=== PATIENT | male | born 1965 | race Caucasian/White ===

== ENCOUNTER 2018-02-26 05:08 | Emergency (ER) | payer BC ==
[~2018-02-26] VITALS: Ht 170.2 cm; Wt 89.4 kg
[~2018-02-26 05:08] MED LIST: DAPS25TA2 PO; FEXO180T; HYDR-229 PO; HYDR-3731 PO; LEVO250T11 PO; LEVO750T9 PO; MULT-608 PO; OXYC-12 PO; PHEN-640 PO; SULF1TAB38 PO; TAMS0.4C98 PO
[2018-02-26] MEDS ORDERED: ONDANSETRON 4 MG (ZOFRAN) ORAL DISSOLVE TAB PO ONE (05:30)
[2018-02-26] MEDS ORDERED: KETOROLAC 30 MG/ML VIAL IM ONE (05:30)
--- NOTE | 2018-02-26 05:30 | ED Back Pain ---
General Chief Complaint: Back Problems Stated Complaint: POSS KIDNEY STONE Source of Information: Patient, Spouse Exam Limitations: No Limitations History of Present Illness Date Seen by Provider: Feb 26, 2018 Time Seen by Provider: 05:19 Initial Comments Patient presents to the ER by private conveyance with a chief complaint he is had kidney stones before and he is having pain tonight woke him up just prior to arrival reminiscent of a kidney stone. He says it's in his right lower flank with some radiation of pain to his right groin. He is able to urinate is not having any blood in his urine. He had some nausea earlier and vomited times one. He is not as nauseated now however. He says in the past he's had to have kidney stones broke up by lithotripsy by Dr. Navarro. He took half of a hydrocodone he had left over and that helped his pain quite a bit. Allergies and Home Medications Allergies Coded Allergies: No Known Drug Allergies (Unverified , 08/12/09) Home Medications Dapsone 25 Mg Tablet, 50 MG PO DAILY, (Reported) take 2 (25mg) tabs Levofloxacin 250 Mg Tablet, 250 MG PO DAILY Prescribed by: JOSEE LEAVITT on 12/29/15 1016 Multivitamins 1 Tab Tablet, 1 TAB PO DAILY, (Reported) Phenazopyridine HCl 200 Mg Tablet, 1 TAB PO TID PRN for PAIN Prescribed by: JOSEE LEAVITT on 12/29/15 1016 Tamsulosin HCl 0.4 Mg Cap, 0.4 MG PO DAILY Prescribed by: JOSEE LEAVITT on 12/29/15 1016 Patient Home Medication List Home Medication List Reviewed: Yes Constitutional: No chills, No diaphoresis, No fever EENTM: No ear discharge, No ear pain Respiratory: No cough, No short of breath Cardiovascular: No chest pain, No edema Gastrointestinal: No abdominal pain, No constipation, No diarrhea; nausea, vomiting Genitourinary: No decreased output, No discharge, No dysuria Musculoskeletal: see HPI, back pain; No joint pain Skin: No pruritus, No rash Psychiatric/Neurological: Denies Headache, Denies Numbness Past Aubgajp-Ygxbpo-Lkshvv Hx Patient Social History Alcohol Use: Denies Use Recreational Drug Use: No Smoking Status: Never a Smoker Recent Foreign Travel: No Contact w/Someone Who Travel: No Past Medical History Reproductive Disorders: No Sexually Transmitted Disease: No Kidney Stones Physical Exam Vital Signs Vital Signs - First Documented 02/26/18 05:21 Temp 97.9 Resp 20 B/P (MAP) 136/100 (112) Pulse Ox 92 O2 Delivery Room Air Capillary Refill : General Appearance: No Apparent Distress, WD/WN HEENT: PERRL/EOMI, Pharynx Normal Neck: Full Range of Motion, Non Tender, Supple Cardiovascular: Regular Rate, Rhythm, No Murmur, Normal Peripheral Pulses Respiratory: Chest Non Tender, Lungs Clear, Normal Breath Sounds, No Accessory Muscle Use, No Respiratory Distress Peripheral Pulses: 2+ Radial Pulses (R), 2+ Radial Pulses (L) Gastrointestinal: Normal Bowel Sounds, Non Tender, Soft Back: Normal Inspection, CVA Tenderness (R) Extremity: Normal Capillary Refill, Non Tender, No Pedal Edema Neurologic/Psychiatric: Alert, Oriented x3 Skin: Normal Color, Warm/Dry Progress/Results/Core Measures Results/Orders My Orders Orders - TIFFANY BE Ct Abd/Pelvis Wo(Kidney Stone) (02/26/18 05:21) Abdomen/Kub 1view (02/26/18 05:21) Ondansetron Oral Dissolve Tab (Zofran (02/26/18 05:30) Ketorolac Injection (Toradol Injection) (02/26/18 05:30) Ceftriaxone Injection (Rocephin Injectio (02/26/18 06:00) Medications Given in ED Current Medications Medications Dose Ordered Sig/Steven Route Start Time Stop Time Status Last Admin Dose Admin Ketorolac Tromethamine 30 mg ONCE ONCE IM 02/26/18 05:30 02/26/18 05:32 DC 02/26/18 05:31 30 MG Ondansetron HCl 4 mg ONCE ONCE PO 02/26/18 05:30 02/26/18 05:32 DC 02/26/18 05:32 4 MG Vital Signs/I&O 02/26/18 05:21 Temp 97.9 Resp 20 B/P (MAP) 136/100 (112) Pulse Ox 92 O2 Delivery Room Air Progress Progress Note #1: Time: 05:30 Progress Note The patient's pain is still moderately there so we'll give him some Zofran and ketorolac IM and obtain CT without contrast of the abdomen pelvis as well as a plain view KUB. Progress Note #2: Time: 05:59 Progress Note Gram of Rocephin and some Keflex outpatient and will send him to see Dr. Navarro. Diagnostic Imaging Diagonstic Imaging: CT Plain Films/CT/US/NM/MRI: abdomen, pelvis (no contrast) Comments 7 mm stone proximal right ureter with hydroureter and hydronephrosis. Reviewed: Reviewed by Me Departure Impression Primary Impression: Ureteral calculus Disposition: HOME, SELF-CARE Condition: Improved Departure-Patient Inst. Decision time for Depature: 06:00 Referrals: CRISTOBAL STEVENS DO (PCP/Family) Primary Care Physician WILLY NAVARRO MD Patient Instructions: Kidney Stones (DC) Add. Discharge Instructions: Drink plenty of fluids. Caffeine is okay. Use ibuprofen 800 mg every 8 hours in addition to one half to 2 tablets every 6 hours as needed to control your pain. This morning call Dr. Navarro and request an appointment. 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 All discharge instructions reviewed with patient and/or family. Voiced understanding. Scripts Cephalexin (Keflex) 500 Mg Capsule 500 MG PO BID for 7 Days, #14 CAP 0 Refills Prov: TIFFANY BE 02/26/18 Oxycodone HCl/Acetaminophen (Oxycodone-Acetaminophen 5-325) 1 Each Tablet 1-2 EACH PO Q6H PRN for PAIN, #20 TAB 0 Refills Prov: TIFFANY BE 02/26/18 Ondansetron (Ondansetron Odt) 4 Mg Tab.rapdis 4 MG PO Q6H PRN for NAUSEA/VOMITING, #8 TAB 0 Refills Prov: TIFFANY BE 02/26/18 Work/School Note: Work Release Form Date Seen in the Emergency Department: Feb 26, 2018 Return to Work: Feb 28, 2018 Restrictions: No Restrictions Copy Copies To 1: WILLY NAVARRO MD, TITUS J Feb 26, 2018 05:30
[2018-02-26] MEDS ORDERED: cefTRIAXone INJECTION 1,000 MG in NS (IVPB) 50 ML IV ONE (06:00)
[2018-02-26] MEDS ORDERED: OXYC-471 PO (06:04)
[2018-02-26] MEDS ORDERED: ONDA4TAB11 PO (06:04)
[2018-02-26] MEDS ORDERED: CEPH-507 PO (06:04)
[2018-02-26] MEDS ORDERED: LIDOCAINE 1% INJ 20 ML 20 ML VIAL ONE (06:07)
[2018-02-26 06:15] VITALS: BP 136/100
[2018-02-26] MEDS ORDERED: cefTRIAXone 1 GM (ROCEPHIN) VIAL IM ONE (06:15)
[2018-02-26] MEDS ORDERED: LIDOCAINE 1% INJ 50 ML (XYLOCAINE) VIAL IJ ONE (06:15)
--- NOTE | 2018-02-26 07:00 | Diagnostic Imaging Report ---
Indication: Abdominal and flank pain. Comparison: 12/29/2015 Findings: Two views of the abdomen demonstrate mild constipation without obstruction or ileus. There is no free air. Stable calcification measuring 3 mm is seen overlying the medial 11th rib on the left. Impression: Mild constipation without obstruction or free air. Dictated by: Dictated on workstation # [id number]
--- NOTE | 2018-02-26 07:01 | Diagnostic Imaging Report ---
PROCEDURE: CT urinary tract, rule out kidney stone. TECHNIQUE: Multiple contiguous axial images were obtained through the abdomen and pelvis without the use of intravenous contrast. INDICATION: Right flank pain. COMPARISON: 12/23/2015 FINDINGS: There is moderate right-sided hydronephrosis secondary to an obstructive stone in the proximal ureter measuring approximately 8 mm. There is inflammatory change in the perinephric fat. Additional nonobstructive stones are seen bilaterally. The left ureter and urinary bladder are grossly normal. There is some mild prostate enlargement. Lung bases are clear. The remainder of the solid organs, vascular structures and bowel are stable. There is stable splenomegaly. Osseous structures are age-appropriate. IMPRESSION: Moderate right-sided hydronephrosis secondary to an obstructive 8 mm stone in the proximal right ureter. Dictated by: Dictated on workstation # [id number]
== END 2018-02-26 06:14 | disposition home or self-care (01) ==
LOC: EDUNIT# 05:08 → ER 05:11
DX: N20.1 Calculus of ureter (principal)
CPT/HCPCS: 74018; 74176; 96372; 99284

== ENCOUNTER 2018-03-04 09:39 | Outpatient (CLI) | payer BC ==
[~2018-03-04] VITALS: Ht 170.2 cm; Wt 89.4 kg
[~2018-03-04 09:39] MED LIST changes: -HYDR-3870 PO; -NITR-68 PO
[2018-03-05] MEDS ORDERED: NITR-68 PO (10:19)
[2018-03-05] MEDS ORDERED: HYDR-3870 PO (10:19)
== END 2018-03-04 16:25 ==
LOC: PREOP 09:39
PROVIDERS: ATTEND Urology
DX: Z01.818 Encounter for other preprocedural examination (principal); N20.1 Calculus of ureter

== ENCOUNTER → 2018-03-04 | Outpatient (CLI) | payer BC ==
[~2018-03-04] MED LIST changes: +CEPH-507 PO; +HYDR-3870 PO; +NITR-68 PO; +ONDA4TAB11 PO; +OXYC-471 PO
--- NOTE | 2018-03-04 14:24 | Diagnostic Imaging Report ---
INDICATION: Nephrolithiasis. EXAMINATION: KUB at 2:18 PM. FINDINGS: There is a 5 mm calcification projected just below the transverse process of L3 on the right. The bowel gas pattern is normal. IMPRESSION: A 5 mm stone projects over the right proximal ureter. Dictated by: Dictated on workstation # [id number]
== END ==
LOC: RAD 13:49
PROVIDERS: ATTEND Urology
DX: N20.2 Calculus of kidney with calculus of ureter (principal)
CPT/HCPCS: 74018

== ENCOUNTER 2018-03-05 06:20 | Day surgery (SDC) | payer BC ==
[~2018-03-05] VITALS: Ht 170.2 cm; Wt 89.4 kg
[~2018-03-05 06:20] MED LIST changes: +LACTATED RINGERS 1,000 ML IV ONE
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
[2018-03-05 06:30] VITALS: BP 133/87
[2018-03-05] MEDS ORDERED: cefTRIAXone INJECTION 1,000 MG in NS (IVPB) 50 ML IV ONE (06:30)
--- NOTE | 2018-03-05 06:55 | Diagnostic Imaging Report ---
INDICATION: Urinary tract calculus Single view of the abdomen is obtained with comparison made to the study of one day earlier. There is a persistent 0.6 cm calcification projecting to the right of midline at the C3-4 level compatible with ureteric calculus. Bowel gas pattern is unremarkable. No other pathologic abdominal calcification is seen. There may be calcified granulomas in the spleen. IMPRESSION: A 0.6 cm calculus to the right of midline at L3-4 which may reside within the ureter. This is not significantly changed compared to previous study. Dictated by: Dictated on workstation # [id number]
--- NOTE | 2018-03-05 07:13 | Progress Note-Pre Operative ---
Pre-Operative Progress Note H&P Reviewed The H&P was reviewed, patient examined and no changes noted. Date Seen by Provider: Mar 05, 2018 Time Seen by Provider: 07:12 Date H&P Reviewed: Mar 05, 2018 Time H&P Reviewed: 07:12 Pre-Operative Diagnosis: RT PROXIMAL URETERAL STONE WILLY NAVARRO MD Mar 05, 2018 7:13 am
--- NOTE | 2018-03-05 07:21 | Progress Note-Post Operative ---
Post-Operative Progess Note Surgeon (s)/Pulmonary Care Nurse (s) Surgeon WILLY NAVARRO MD Pulmonary Care Nurse: N/A Pre-Operative Diagnosis RT PROXIMAL URETERAL STONE Post-Operative Diagnosis SAME Procedure & Operative Findings Date of Procedure 03/05/18 Procedure Performed/Findings RT ESWL Anesthesia Type GENERAL Estimated Blood Loss Estimated blood loss (mL): N/A Specimens/Packing Specimens Removed N/A Packing: N/A WILLY NAVARRO MD Mar 05, 2018 7:21 am
--- NOTE | 2018-03-05 07:22 | Discharge Inst-Urology ---
Discharge Inst-Urology Discharge Medications New, Converted, or Re-newed RX: RX on Chart Patient Instructions/Follow Up Plan Please make appointment to been seen in office Sunday prior to it KU on way home Post ESWL instructions Increase oral fluids for 48 hours and then as needed. Diet and Activity as tolerated. If questions or concerns contact your physician Or seek help at emergency department. WILLY NAVARRO MD Mar 05, 2018 7:22 am
[2018-03-05] MEDS ORDERED: fentaNYL INJECTION 100 MCG/2 ML AMP ONE (08:03)
[2018-03-05] MEDS ORDERED: DEXAMETHASONE 10 MG/ML (DECADRON) 1 ML VIAL ONE (08:03)
[2018-03-05] MEDS ORDERED: ONDANSETRON 4 MG/2 ML (SDV) Z0FRAN ONE (08:03)
[2018-03-05] MEDS ORDERED: LIDOCAINE PF 2% 5 ML (XYLOCAINE) VIAL ONE (08:03)
[2018-03-05] MEDS ORDERED: proPOfol 200 MG/20 ML (DIPRIVAN) VIAL IV ONE (08:03)
[2018-03-05] MEDS ORDERED: MIDAZOLAM 2 MG/2 ML (VERSED) VIAL ONE (08:07)
[2018-03-05] MEDS ORDERED: KETOROLAC 30 MG/ML VIAL ONE (08:22)
[2018-03-05] MEDS ORDERED: FUROSEMIDE 40 MG/4 ML INJ (LASIX) ONE (08:22)
[2018-03-05] MEDS ORDERED: SEVOFLURANE (ULTANE) 15 ML INHAL SOLN ONE (09:09)
[2018-03-05 09:55] VITALS: BP 133/87
[2018-03-05] MEDS ORDERED: NITR-68 PO (10:19)
[2018-03-05] MEDS ORDERED: HYDR-3870 PO (10:19)
[2018-03-05 10:25] VITALS: BP 126/83
--- NOTE | 2018-03-05 10:50 | Anesthesia-General Post-Op ---
General Patient Condition Mental Status/LOC: Same as Preop Cardiovascular: Satisfactory Nausea/Vomiting: Absent Respiratory: Satisfactory Pain: Controlled Complications: Absent Post Op Complications Complications None Follow Up Care/Instructions Patient Instructions None needed. Anesthesia/Patient Condition Patient Condition Patient is doing well, no complaints, stable vital signs, no apparent adverse anesthesia problems. No complications reported per nursing. KOURTNEY EDOUARD CRNA Mar 05, 2018 10:50
[2018-03-05 10:55] VITALS: BP 132/82
[2018-03-05 11:15] VITALS: BP 132/82
--- NOTE | 2018-03-05 13:15 | OPERATIVE REPORT ---
DATE OF SERVICE: 03/05/2018 PREOPERATIVE DIAGNOSIS: Right proximal ureteral stone. POSTOPERATIVE DIAGNOSIS: Right proximal ureteral stone. OPERATION PERFORMED: Right ESWL. SURGEON: Germán Navarro MD. ANESTHESIA: General. COMPLICATIONS: None. DESCRIPTION OF PROCEDURE: Under satisfactory general anesthesia, the patient in supine position on the ESWL table, the right proximal ureteral stone was localized and shocks were delivered at a kV of 6, a total of 3000 shocks to completely fragment the stone. The patient received 40 mg of Lasix and 30 mg of Toradol IV at the end of the procedure. He tolerated the procedure and anesthesia well, was sent to recovery room in stable condition. Job ID: [id number] DocumentID: [id number] Dictated Date: 03/05/2018 08:52:47 Creative Services Coordinator Date: 03/05/2018 13:14:46 Dictated By: GERMÁN NAVARRO MD
--- NOTE | 2018-03-05 13:27 | Diagnostic Imaging Report ---
INDICATION: Post extracorporeal shock wave lithotripsy. TECHNIQUE: Single supine view of the abdomen at 11:20 AM CORRELATION STUDY: 03/05/2018 FINDINGS: Imaging of the abdomen demonstrates the bowel gas pattern to be unremarkable and without evidence for obstruction. No significant differential air-fluid levels. No evidence for free air. There is increased density over the right L3 transverse process fairly similar in configuration to a calcification noted on prior study. This measures approximately 9 mm likely remaining within the ureter. IMPRESSION: 1. Calcification over the right L3 transverse process is again demonstrated. This likely reflects the previously noted right ureteral stone. Dictated by: Dictated on workstation # [id number]
== END 2018-03-05 11:15 | disposition home or self-care (01) ==
LOC: SDC 06:20
PROVIDERS: ATTEND Urology
DX: N20.1 Calculus of ureter (principal)
CPT/HCPCS: 74018; 87081

== ENCOUNTER → 2018-03-11 | Outpatient (CLI) | payer BC ==
[~2018-03-11] MED LIST changes: +HYDR-3870 PO; -LACTATED RINGERS 1,000 ML IV ONE; +NITR-68 PO
--- NOTE | 2018-03-11 13:14 | Diagnostic Imaging Report ---
INDICATION: Nephrolithiasis. FINDINGS: There is a stone seen just below the right transverse process of L3. This is presumably in the mid ureter. There are some calcified granulomas in the spleen. No other abnormal calcifications are appreciated. Bowel gas pattern is nonspecific. IMPRESSION: Stone in the mid right ureter just below the right transverse process of L3. Dictated by: Dictated on workstation # [id number]
== END ==
LOC: LAB 12:35
PROVIDERS: ATTEND Urology
DX: N20.2 Calculus of kidney with calculus of ureter (principal)
CPT/HCPCS: 74018

== ENCOUNTER 2018-03-25 15:47 | Outpatient (CLI) | payer BC ==
[~2018-03-25] VITALS: Ht 170.2 cm; Wt 89.4 kg
[~2018-03-25 15:47] MED LIST changes: -CIPR-225 PO; -HYDR-3875 PO; -MULT1TAB69 PO
[2018-03-25] MEDS ORDERED: MULT1TAB69 PO (15:58)
[2018-03-25] MEDS ORDERED: DAPS25TA2 PO (15:58)
[2018-03-26] MEDS ORDERED: PHEN-640 PO (14:50)
[2018-03-26] MEDS ORDERED: TAMS0.4C98 PO (14:50)
[2018-03-26] MEDS ORDERED: CIPR-225 PO (14:50)
[2018-03-26] MEDS ORDERED: HYDR-3875 PO (14:50)
== END 2018-03-25 16:02 ==
LOC: PREOP 15:47
PROVIDERS: ATTEND Urology
DX: Z01.818 Encounter for other preprocedural examination (principal)

== ENCOUNTER → 2018-03-25 | Outpatient (CLI) | payer BC ==
[~2018-03-25] MED LIST changes: +CIPR-225 PO; +HYDR-3875 PO; +MULT1TAB69 PO
--- NOTE | 2018-03-25 13:42 | Diagnostic Imaging Report ---
INDICATION: Right ureterolithiasis. EXAMINATION: KUB at 12:46 PM. FINDINGS: There is an 8 mm elongated calcification projecting over the right mid ureter just below the transverse process of L3. This is unchanged from the study done on 03/11/2018. IMPRESSION: The calcification projecting over the right mid ureteral distribution is unchanged in location or appearance. Dictated by: Dictated on workstation # [id number]
== END ==
LOC: RAD 12:13
PROVIDERS: ATTEND Urology
DX: N20.1 Calculus of ureter (principal)
CPT/HCPCS: 74018

== ENCOUNTER 2018-03-26 08:55 | Day surgery (SDC) | payer BC ==
[~2018-03-26] VITALS: Ht 170.2 cm; Wt 89.4 kg
[~2018-03-26 08:55] MED LIST changes: +MULT1TAB69 PO
--- NOTE | 2018-03-26 09:21 | Progress Note-Pre Operative ---
Pre-Operative Progress Note H&P Reviewed The H&P was reviewed, patient examined and no changes noted. Date Seen by Provider: Mar 26, 2018 Time Seen by Provider: 09:21 Date H&P Reviewed: Mar 26, 2018 Time H&P Reviewed: 09:21 Pre-Operative Diagnosis: RT PROXIMAL URETERAL STONE WILLY NAVARRO MD Mar 26, 2018 9:21 am
[2018-03-26 09:30] VITALS: BP 110/82
--- NOTE | 2018-03-26 09:43 | Diagnostic Imaging Report ---
INDICATION: Right ureteral stone, pre-ESWL. TIME OF EXAM: 9:46 AM Correlation is made with prior study one day earlier. FINDINGS: Calcific density adjacent to the right transverse process of L3 is again noted approximately 8 mm in size. This is similar in location to yesterday's exam. No definite renal calculi are seen. Bowel gas pattern is unremarkable. IMPRESSION: Stable right ureteral calculus when compared with exam one day earlier. Dictated by: Dictated on workstation # [id number]
[2018-03-26] MEDS: LACTATED RINGERS 1,000 ML IV PRN ×2 (10:00→12:30)
[2018-03-26] MEDS ORDERED: cefTRIAXone INJECTION 1,000 MG in NS (IVPB) 50 ML IV ONE (10:00)
[2018-03-26] MEDS ORDERED: DEXAMETHASONE 10 MG/ML (DECADRON) 1 ML VIAL ONE (10:01)
[2018-03-26] MEDS ORDERED: LIDOCAINE PF 2% 5 ML (XYLOCAINE) VIAL ONE (10:01)
[2018-03-26] MEDS ORDERED: ONDANSETRON 4 MG/2 ML (SDV) Z0FRAN ONE (10:01)
[2018-03-26] MEDS ORDERED: proPOfol 200 MG/20 ML (DIPRIVAN) VIAL IV ONE (10:01)
[2018-03-26] MEDS ORDERED: fentaNYL INJECTION 100 MCG/2 ML AMP ONE (10:02)
[2018-03-26] MEDS ORDERED: MIDAZOLAM 2 MG/2 ML (VERSED) VIAL ONE (10:02)
[2018-03-26] MEDS ORDERED: SEVOFLURANE (ULTANE) 15 ML INHAL SOLN ONE ×2 (10:06→13:06)
[2018-03-26] MEDS ORDERED: CATHETER FLUSH 10 ML SYR IV PRN (10:15)
[2018-03-26] MEDS ORDERED: ROCURONIUM 10 MG/ML 5 ML SYRINGE IV ONE (11:47)
--- NOTE | 2018-03-26 11:48 | Progress Note-Post Operative ---
Post-Operative Progess Note Surgeon (s)/Lotus Notes Developer (s) Surgeon WILLY NAVARRO MD Lotus Notes Developer: N/A Pre-Operative Diagnosis RT PROXIMAL URETERAL STONE Post-Operative Diagnosis SAME Procedure & Operative Findings Date of Procedure 03/26/18 Procedure Performed/Findings RT URETEROSCOPY, ATTEMPTED STONE MANIPULATION AND ESWL Anesthesia Type GENERAL Estimated Blood Loss Estimated blood loss (mL): N/A Specimens/Packing Specimens Removed N/A Packing: N/A WILLY NAVARRO MD Mar 26, 2018 11:48 am
--- NOTE | 2018-03-26 11:50 | Discharge Inst-Urology ---
Discharge Inst-Urology Discharge Medications New, Converted, or Re-newed RX: RX on Chart Patient Instructions/Follow Up Plan Please make appointment to been seen in office Sunday 04/08, KUB prior to it KUB on way home Post ESWL instructions Increase oral fluids for 48 hours and then as needed. Diet and Activity as tolerated. If questions or concerns contact your physician Or seek help at emergency department. WILLY NAVARRO MD Mar 26, 2018 11:50 am
[2018-03-26] MEDS ORDERED: FUROSEMIDE 40 MG/4 ML INJ (LASIX) ONE (12:18)
[2018-03-26] MEDS ORDERED: KETOROLAC 30 MG/ML VIAL ONE (12:18)
[2018-03-26] MEDS ORDERED: HYDROmorphone 1 MG/ML (DILAUDID) 1 ML SYRINGE IV PRN (13:15)
[2018-03-26] MEDS ORDERED: fentaNYL INJECTION 100 MCG/2 ML AMP IVP PRN (13:15)
[2018-03-26] MEDS ORDERED: MEPERIDINE (DEMEROL) INJ 50 MG/ML IVP PRN (13:15)
[2018-03-26] MEDS ORDERED: ONDANSETRON 4 MG/2 ML (SDV) Z0FRAN IVP PRN (13:15)
[2018-03-26 13:50] VITALS: BP 134/89
[2018-03-26 13:51] VITALS: BP 134/89
[2018-03-26 14:20] VITALS: BP 119/84
[2018-03-26 14:50] VITALS: BP 122/86
[2018-03-26] MEDS ORDERED: CIPR-225 PO (14:50)
[2018-03-26] MEDS ORDERED: TAMS0.4C98 PO (14:50)
[2018-03-26] MEDS ORDERED: HYDR-3875 PO (14:50)
[2018-03-26] MEDS ORDERED: PHEN-640 PO (14:50)
[2018-03-26 15:20] VITALS: BP 122/86
--- NOTE | 2018-03-26 16:27 | Diagnostic Imaging Report ---
EXAMINATION: KUB at 4:11 p.m. INDICATION: Post ESWL. FINDINGS: The KUB performed earlier today at 9:46 a.m. noted an 8.4 mm calculus just inferior to the right transverse process of L3. That calcific density is difficult to identify on this study. The patient has undergone ESWL in the interval since the prior study, and I suspect that the calculus has been fragmented. There may be a few minute calcific densities in the soft tissues inferior to the right transverse process of L3. No other pathological calcification noted. IMPRESSION: 1. The calculus within the mid portion of the right ureter seen on the prior exam has been fragmented. There are only a few small calcific densities still present. 2. No new abnormality has developed otherwise. Dictated by: Dictated on workstation # [id number]
--- NOTE | 2018-03-26 20:31 | OPERATIVE REPORT ---
DATE OF SERVICE: 03/26/2018 PREOPERATIVE DIAGNOSIS: Right proximal ureteral stone. POSTOPERATIVE DIAGNOSIS: Right proximal ureteral stone. OPERATION PERFORMED: Right ureteroscopy, attempted stone manipulation and ESWL. SURGEON: Germán Navarro MD ANESTHESIA: General. COMPLICATIONS: None. DESCRIPTION OF PROCEDURE: Under satisfactory general anesthesia, the patient in lithotomy position on the cystoscopy table, genitalia were prepped and draped in the usual sterile fashion. Cystoscope was introduced under vision. The anterior urethra was normal. The prostate was nonobstructing. Bladder neck was open. The bladder was inspected, no abnormalities. Using the foroblique lens, I dilated right ureteral orifice intramural portion to accommodate a 6.9-Faroese semi-rigid ureteroscope. I was able to go all the way to the mid ureter, but was not able to go to the proximal ureter where the stone was, so I removed the ureteroscope, I inserted a 6-Faroese ureteral catheter towards the level of the stone trying to flush the stone back, try to manipulate it, no results. I discontinued further attempt, emptied the bladder, removed the cystoscope, moved the patient to the ESWL table supine. The right proximal ureter stone was localized. Shocks were delivered at kV of 5, 3000 shocks. It was very hard to see the stone. We mapped the ureter all the way up to the kidney and down to the bladder. There was no calcification seen there, so we went back to the area where we performed the ESWL, then delivered another 1000 shocks at kV of 3. The results seemed to be satisfactory. I did not see any further calcification along the course of the ureter, proximally and distally. Again, I did give the patient 30 mg of Toradol and 40 mg of Lasix IV. He tolerated the procedure and anesthesia well and was sent to recovery room in stable condition. Job ID: [id number] DocumentID: [id number] Dictated Date: 03/26/2018 12:47:42 Channel Process Plant Operator Date: 03/26/2018 17:22:33 Dictated By: GERMÁN NAVARRO MD
== END 2018-03-26 15:20 | disposition home or self-care (01) ==
LOC: SDC 08:55
PROVIDERS: ATTEND Urology
DX: N20.1 Calculus of ureter (principal)
CPT/HCPCS: 74018; 87081

== ENCOUNTER → 2018-04-08 | Outpatient (CLI) | payer BC ==
[~2018-04-08] MED LIST changes: +CIPR-225 PO; +HYDR-3875 PO
--- NOTE | 2018-04-08 14:13 | Diagnostic Imaging Report ---
INDICATION: Proximal ureteral stone. COMPARISON: 03/26/2018. FINDINGS: The bowel gas pattern is nonspecific. There are no definite abnormal calcifications projected over either kidney or along the expected course of either ureter. The osseous structures are unremarkable. IMPRESSION: No definitive residual renal stones are appreciated by plain film radiography. Nonspecific bowel gas pattern. Dictated by: Dictated on workstation # [id number]
== END ==
LOC: RAD 12:02
PROVIDERS: ATTEND Urology
DX: N20.1 Calculus of ureter (principal)
CPT/HCPCS: 74018

== ENCOUNTER 2018-07-02 10:00 | Emergency (ER) | payer BC ==
[~2018-07-02] VITALS: Ht 170.2 cm; Wt 88.5 kg
--- OUTSIDE RECORDS SUMMARY | 2018-07-02 10:03 | XMS REPORT | Continuity of Care Document ---
Author Author [facility] Organization [facility] Address Unknown Phone Unavailable Allergies Active Description Code Type Severity Reaction Onset Reported/Identified Relationship to Patient Clinical Status Yes No Known Drug Allergies [id number] Drug Allergy Mild N/A 08/12/2009 Medications There [...] ENCOUNTER FOR SCREENING FOR OTHER BACTER 12/30/2015 ARMON ALBARRAN, WILLY Zheng Ot N20.1 12/30/2015 RAMON ALBARRAN, WILLY Zheng Ot Z11.2 12/31/2015 WILLY NAVARRO MD Ot N20.1 12/31/2015 WILLY NAVARRO MD Ot Z11.2 01/11/2016 Ot 592.0 CALCULUS OF KIDNEY 01/11/2016 Ot 592.0 CALCULUS OF KIDNEY 01/11/2016 BEBE ORDOÑEZ MD Ot N20.1 CALCULUS OF URETER 01/12/2016 BEBE ORDOÑEZ MD Ot N20.1 CALCULUS OF URETER 03/16/2016 WILLY NAVARRO MD Ot N20.9 URINARY CALCULUS, UNSPECIFIED 2016 RAMON ALBARRAN, WILLY Zheng Ot N20.9 URINARY CALCULUS, UNSPECIFIED 02/26/2018 BEBE ORDOÑEZ MD Ot N20.1 CALCULUS OF URETER 02/26/2018 WILLY NAVARRO MD Ot N20.9 URINARY CALCULUS, UNSPECIFIED 02/26/2018 HAILE ALBARRAN, TIFFANY J Ot N20.1 CALCULUS OF URETER 02/26/2018 HAILE ALBARRAN, TIFFANY J Ot R10.9 UNSPECIFIED ABDOMINAL PAIN 03/05/2018 WILLY NAVARRO MD Ot N20.2 CALCULUS OF KIDNEY WITH CALCULUS OF URET 03/05/2018 WILLY NAVARRO MD Ot N20.1 CALCULUS OF URETER 03/05/2018 WILLY NAVARRO MD Ot N20.1 CALCULUS OF URETER 03/05/2018 WILLY NAVARRO MD Ot Z01.818 ENCOUNTER FOR OTHER PREPROCEDURAL EXAMIN 03/06/2018 WILLY NAVARRO MD Ot N20.1 CALCULUS OF URETER 03/12/2018 WILLY NAVARRO MD Ot N20.2 CALCULUS OF KIDNEY WITH CALCULUS OF URET 03/26/2018 WILLY NAVARRO MD Ot N20.1 CALCULUS OF URETER 03/26/2018 WILLY NAVARRO MD Ot N20.2 CALCULUS OF KIDNEY WITH CALCULUS OF URET 03/26/2018 WILLY NAVARRO MD Ot N20.1 CALCULUS OF URETER 03/28/2018 WILLY NAVARRO MD Ot Z01.818 ENCOUNTER FOR OTHER PREPROCEDURAL EXAMIN 03/29/2018 WILLY NAVARRO MD Ot N20.1 CALCULUS OF URETER 04/09/2018 WILLY NAVARRO MD, Ot N20.1 CALCULUS OF URETER 2018 WILLY NAVARRO MD, Ot N20.1 CALCULUS OF URETER Procedures There is no data. Results Test Result Range Methicillin resistant Staphylococcus aureus (MRSA) screening culture - 06:48 Methicillin resistant Staphylococcus aureus (MRSA) screening culture NEG NRG Methicillin resistant Staphylococcus aureus (MRSA) screening culture - 09:42 Methicillin resistant Staphylococcus aureus (MRSA) screening culture NEG NRG Encounters ACCT No. Visit Date/Time Discharge Status Pt. Type Provider Facility Loc./Unit Complaint [id number] 04/08/2018 12:02:00 04/08/2018 23:59:59 CLS Outpatient WILLY NAVARRO MD [facility] RAD RT STONE [id number] 03/26/2018 08:55:00 03/26/2018 15:20:00 DIS Outpatient WILLY NAVARRO MD [facility] RIGHT URETERAL STONE [id number] 03/25/2018 12:13:00 03/25/2018 23:59:59 CLS Outpatient WILLY NAVARRO MD [facility] RAD RT STONE [id number] 03/25/2018 15:47:00 03/25/2018 16:02:00 DIS Outpatient WILLY NAVARRO MD [facility] PREOP RIGHT URETERAL STONE [id number] 03/11/2018 12:35:00 03/11/2018 23:59:59 CLS Outpatient WILLY NAVARRO MD [facility] RAD URETAL STONES [id number] 03/05/2018 06:20:00 03/05/2018 11:15:00 DIS Outpatient WILLY NAVARRO MD [facility] RIGHT URETERAL STONE [id number] 03/04/2018 13:49:00 03/04/2018 23:59:59 CLS Outpatient WILLY NAVARRO MD [facility] RAD RT STONE [id number] 03/04/2018 09:39:00 03/04/2018 16:25:00 DIS Outpatient WILLY NAVARRO MD [facility] PREOP RIGHT URETERAL STONE [id number] 02/26/2018 05:11:00 02/26/2018 06:14:00 DIS Emergency TIFFANY BE MD [facility] ER POSS KIDNEY STONE [id number] 04/11/2016 00:10:00 04/11/2016 23:59:59 CLS Preadmit WILLY NAVARRO MD [facility] LAB STONES [id number] 01/24/2016 10:00:00 2016 00:01:00 DIS Outpatient WILLY NAVARRO MD [facility] LAB STONES [id number] 12/29/2015 06:31:00 12/29/2015 10:40:00 DIS Outpatient WILLY NAVARRO MD [facility] SDC BILATERAL STONES [id number] 12/28/2015 05:37:00 12/28/2015 13:21:00 DIS Outpatient WILLY NAVARRO MD [facility] PREOP BILATERAL STONES [id number] 12/27/2015 10:51:00 12/27/2015 23:59:59 CLS Outpatient BEBE ORDOÑEZ MD [facility] RAD L URETERAL STONE [id number] 08/14/2014 08:34:00 08/14/2014 23:59:59 CLS Outpatient LEANNE BACK [facility] QUICK [id number] 04/13/2013 21:19:00 04/13/2013 22:22:00 DIS Emergency KORY CASILLAS DO [facility] ER SUTURE REMOVAL [id number] 03/31/2013 12:41:00 03/31/2013 15:14:00 DIS Emergency ORESTES SOTO MD [facility] ER RT RIB PAIN [id number] 07/02/2018 10:00:00 ACT Emergency NOEMI ALBARRAN, CAESAR Page [facility] ER COUGH;CHEST PRESSURE [id number] 01/11/2016 15:58:00 Document Registration [id number] 12/23/2015 13:15:00 Document Registration [id number] 10/11/2011 00:00:00 Document Registration [id number] 07/21/2011 09:34:00 Document Registration [id number] 10/21/2010 00:00:00 Document Registration [id number] 07/22/2010 08:20:00 Document Registration 10/201702/05/2018 20:27:22 02/05/2018 23:59:59 [facility] Outpatient Carolyn Bowling
--- OUTSIDE RECORDS SUMMARY | 2018-07-02 10:03 | XMS REPORT | Continuity of Care Document ---
Author Author [facility] Organization [facility] Address Unknown Phone Unavailable Care Team Providers Care Reservation Sales Agent Name Role Phone CRISTOBAL STEVENS DO PP Insurance Providers Payer Name Policy Number Subscriber Name Relationship Rust [id number] Walter Armstrong 01 Self / Same As Patient Advance Directives Directive Response Recorded Date Advance Directives N 04/13/13 9:26pm Organ Donor N 03/31/13 12:53pm Problems No Known Problems or Medical conditions. Social History History Response Recorded Date/Time Alcohol Use Denies Use 04/13/13 9:26pm Recreational Drug Use N 04/13/13 9:26pm Sexually Transmitted Disease N 03/31/13 12:53pm Allergies, Adverse Reactions, Alerts Allergen Type Severity Reaction Last Updated No Known Drug Allergies Allergy Mild 08/12/09 Medications Medication Dose Units Route Sig Qty Days Trimethoprim/Sulfamethoxazole (Bactrim Ds) 1 Ea PO BID 20 Oxycodone Hcl/Acetaminophen (Percocet 5-325 Mg Tablet) 1 - 2 Each PO Q4-6H PRN 20 Acetaminophen/Hydrocodone Bitart (Lortab 10-500 Tablet) 1 Each PO Q 4 - 6 HRS PRN 30 Multivitamins (Multiple Vitamin) Fexofenadine HCl (Stella) Dapsone Immunizations Name Given Type DTaP 03/31/13 A Response Recorded Date/Time Status not known Unknown Results No Known Relevant Diagnostic Tests, Laboratory Data and/or Discharge Summary. Procedures Procedure Code Date CYSTOURETERO W/STONE REMOVE 76565 CYSTOSCOPY AND TREATMENT 26607 08/18/09 Encounters Encounter Location Date/Time Departed Emergency Room [facility] 9:19pm
--- NOTE | 2018-07-02 10:32 | ED Chest Pain ---
General Chief Complaint: Chest Pain Stated Complaint: COUGH;CHEST PRESSURE Source: patient Exam Limitations: no limitations History of Present Illness Date Seen by Provider: Jul 02, 2018 Time Seen by Provider: 10:03 Initial Comments Here from [facility] [place] [facility] care [facility] with concerns related to cardiac event. Apparently he reported there today for chest congestion. The patient and they had concerns of chest pressure. He had EKG done which had question of Q waves in lead 2 and aVF. He was placed on 6 L of oxygen and had improvement. He was not hypoxic at the time. He did get 4 baby aspirin and a chest x-ray. The chest x-ray was negative for cardiomegaly or infiltrate. Patient states he feels better and apparently his pressure/congestion was relief from the high flow O2. Does have family history of stent and his father and the patient is not sure at what age bit older than he is now. Denies nausea or vomiting. States he feels like he has bronchitis. Timing/Duration: 1-2 days Severity/Quality: mild, pressure (congestion), tightness Location: central Radiation: no radiation Activities at Onset: none Prior CP/Workup: no prior cardiac workup ASA po ADVISOR TO COMMAND IN COMBAT: Yes NTG SL ADVISOR TO COMMAND IN COMBAT: No Associated Symptoms: No back pain, No diaphoresis, No fever/chills, No nausea/ vomiting; shortness of breath; No weakness Allergies and Home Medications Allergies Coded Allergies: No Known Drug Allergies (Unverified , 08/12/09) Home Medications Dapsone 25 Mg Tablet, 50 MG PO DAILY, (Reported) Multivitamin 1 Each Tablet, 1 EACH PO DAILY, (Reported) Patient Home Medication List Home Medication List Reviewed: Yes Review of Systems Review of Systems Constitutional: see HPI; No chills, No fever EENTM: Nose Congestion; No Throat Pain Respiratory: Cough, Shortness of Air Cardiovascular: See HPI Gastrointestinal: No Symptoms Reported Genitourinary: No Symptoms Reported Musculoskeletal: no symptoms reported Skin: no symptoms reported All Other Systems Reviewed Negative Unless Noted: Yes Past Raiofid-Wyqqoe-Xvlhkh Hx Past Med/Social Hx: Reviewed Nursing Past Med/Soc Hx Patient Social History Alcohol Use: Denies Use Recreational Drug Use: No Smoking Status: Never a Smoker Recent Hopitalizations: No Immunizations Up To Date Tetanus Booster (TDap): Unknown PED Vaccines UTD: No Seasonal Allergies Seasonal Allergies: No Past Medical History Surgeries: No Respiratory: No Cardiac: Yes Hypertension (intermittently noted but not treated currently) Neurological: No Reproductive Disorders: No Sexually Transmitted Disease: No HIV/AIDS: No Genitourinary: Yes Kidney Stones Loss of Vision: Denies Hearing Impairment: Denies Adverse Reaction/Blood Tranf: No (N/A) Family Medical History Reviewed Nursing Family Hx Physical Exam Vital Signs Vital Signs - First Documented 07/02/18 10:00 Temp 98.0 Pulse 74 Resp 16 B/P (MAP) 140/90 (107) Pulse Ox 97 O2 Delivery Room Air Capillary Refill : Height, Weight, BMI Height: 5'7.00" Weight: 197lbs. 0.0oz. 89.617033xh; 30.9 BMI Method:Estimated General Appearance: No Apparent Distress, WD/WN HEENT: PERRL/EOMI, Pharynx Normal Neck: Non Tender, Supple Respiratory: Lungs Clear, Normal Breath Sounds Cardiovascular: Regular Rate, Rhythm, No Murmur Gastrointestinal: Normal Bowel Sounds, No Organomegaly, No Pulsatile Mass, Non Tender, Soft Extremity: Normal Range of Motion, Non Tender Neurologic/Psychiatric: Alert, Oriented x3 Skin: Normal Color, Warm/Dry Progress/Results/Core Measures Results/Orders Lab Results Laboratory Tests Test 07/02/18 10:32 07/02/18 12:05 Range/Units White Blood Count 12.0 H 4.3-11.0 10^3/uL Red Blood Count 5.12 4.35-5.85 10^6/uL Hemoglobin 15.8 13.3-17.7 G/DL Hematocrit 46 40-54 % Mean Corpuscular Volume 89 80-99 FL Mean Corpuscular Hemoglobin 31 25-34 PG Mean Corpuscular Hemoglobin Concent 35 32-36 G/DL Red Cell Distribution Width 13.2 10.0-14.5 % Platelet Count 187 130-400 10^3/uL Mean Platelet Volume 10.5 H 7.4-10.4 FL Neutrophils (%) (Auto) 78 H 42-75 % Lymphocytes (%) (Auto) 10 L 12-44 % Monocytes (%) (Auto) 7 0-12 % Eosinophils (%) (Auto) 5 0-10 % Basophils (%) (Auto) 0 0-10 % Neutrophils # (Auto) 9.3 H 1.8-7.8 X 10^3 Lymphocytes # (Auto) 1.2 1.0-4.0 X 10^3 Monocytes # (Auto) 0.9 0.0-1.0 X 10^3 Eosinophils # (Auto) 0.6 H 0.0-0.3 10^3/uL Basophils # (Auto) 0.1 0.0-0.1 10^3/uL Prothrombin Time 13.3 12.2-14.7 SEC INR Comment 1.0 0.8-1.4 Activated Partial Thromboplast Time 34 24-35 SEC D-Dimer 0.41 0.00-0.49 UG/ML Sodium Level 137 135-145 MMOL/L Potassium Level 3.8 3.6-5.0 MMOL/L Chloride Level 106 98-107 MMOL/L Carbon Dioxide Level 22 21-32 MMOL/L Anion Gap 9 5-14 MMOL/L Blood Urea Nitrogen 12 7-18 MG/DL Creatinine 1.04 0.60-1.30 MG/DL Estimat Glomerular Filtration Rate > 60 BUN/Creatinine Ratio 12 Glucose Level 115 H 70-105 MG/DL Calcium Level 9.3 8.5-10.1 MG/DL Corrected Calcium 9.1 8.5-10.1 MG/DL Magnesium Level 2.3 1.8-2.4 MG/DL Total Bilirubin 1.1 H 0.1-1.0 MG/DL Aspartate Amino Transf (AST/SGOT) 30 5-34 U/L Alanine Aminotransferase (ALT/SGPT) 45 0-55 U/L Alkaline Phosphatase 90 40-136 U/L Myoglobin 41.1 43.0 10.0-92.0 NG/ML Troponin I < 0.30 < 0.30 <0.30 NG/ML Total Protein 7.5 6.4-8.2 GM/DL Albumin 4.3 3.2-4.5 GM/DL My Orders Orders - CAESAR FRANKLIN MD Ekg Tracing (07/02/18 10:00) Cbc With Automated Diff (07/02/18 10:10) Magnesium (07/02/18 10:10) Cardiac Profile 1 (07/02/18 10:10) Comprehensive Metabolic Panel (07/02/18 10:10) Myoglobin Serum (07/02/18 10:10) Protime With Inr (07/02/18 10:10) Partial Thromboplastin Time (07/02/18 10:10) O2 (07/02/18 10:10) Monitor-Rhythm Ecg Trace Only (07/02/18 10:10) Lipid Panel (07/03/18 06:00) Fibrin Degradation Products (07/02/18 10:10) Albuterol/Ipra Inhalation Soln (Duoneb I (07/02/18 12:00) Svn Small Volume Nebulizer (07/02/18 11:52) Troponin I (07/02/18 11:58) Myoglobin Serum (07/02/18 11:58) Ekg Tracing (07/02/18 11:58) Dexamethasone Injection (Decadron Inject (07/02/18 12:45) Medications Given in ED Current Medications Medications Dose Ordered Sig/Steven Route Start Time Stop Time Status Last Admin Dose Admin Albuterol/ Ipratropium 3 ml ONCE ONCE INH 07/02/18 12:00 07/02/18 12:01 DC 07/02/18 11:57 3 ML Vital Signs/I&O 07/02/18 07/02/18 10:00 11:57 Temp 98.0 Pulse 74 Resp 16 B/P (MAP) 140/90 (107) Pulse Ox 97 93 O2 Delivery Room Air Room Air Progress Progress Note : Progress Note Seen and evaluated. IV by EMS, labs, EKG ordered. I did not repeat chest x- ray as I talked with Dr. Sophia GARCIA urgent care and he verified chest x-ray and negative findings there. Monitor patient. No acute findings. Monitor patient. 1250: We have repeated labs and EKG and these are still negative. I did discuss the case with Dr. Quintero and he would like to see the patient within one week. This was told to the patient he agrees. He will call for appointment. Discharge home with return precautions. Patient verbalize understanding instructions and agreement with plan. Initial ECG Impression Date: Jul 02, 2018 Initial ECG Impression Time: 10:08 Initial ECG Rate: 70 Initial ECG Rhythm: Normal Sinus Initial ECG Impression: Normal Initial ECG Comparisson: No Previous ECG Available Comment Sinus rhythm with normal axis. No evidence of ST elevation VA. Similar to previous from earlier today from outside facility but no previous EKGs from this facility. EKG : EKG Time: 12:01 Rate: 70 Rhythm: Normal Sinus ECG Comparisson: Unchanged ECG Impression: Normal Comment Sinus rhythm with normal axis. No evidence of ST elevation VA. Similar to previous done earlier today. Interpreted by me. Departure Impression Primary Impression: Bronchitis Additional Impression: Chest pain Qualified Codes: R07.9 - Chest pain, unspecified Disposition: HOME, SELF-CARE Condition: Improved Departure-Patient Inst. Decision time for Depature: 13:01 Referrals: Elizabeth QUINTERO MD, JACQUELINE S DO (PCP/Family) Primary Care Physician Patient Instructions: Acute Bronchitis, Adult (DC), Chest Pain (DC) Add. Discharge Instructions: All discharge instructions reviewed with patient and/or family. Voiced understanding. Take medications as directed. Follow-up with Dr. Quintero for appointment within one week. Call today for appointment. Let the dietary internship know that the case was discussed with him and he wants to see you by next Sunday. Return for worse pain, fever, vomiting, weakness, breathing problems or other concerns as needed. Scripts Albuterol Sulfate (Ventolin Hfa) 18 Gm Hfa.aer.ad 2 PUFF IH Q6H PRN for SHORTNESS OF BREATH, #1 INHALER 1 Refill Prov: CAESAR FRANKLIN MD 07/02/18 Copy Copies To 1: Elizabeth QUINTERO MD, TIMOTHY D MD Jul 02, 2018 10:32
[2018-07-02 10:40] LABS: BASOPHILS # (AUTO) 0.1 10^3/uL (0.0-0.1); BASOPHILS % (AUTO) 0 % (0-10); EOSINOPHILS # (AUTO) 0.6 10^3/uL (0.0-0.3); EOSINOPHILS % (AUTO) 5 % (0-10); HEMATOCRIT 46 % (40-54); HEMOGLOBIN 15.8 G/DL (13.3-17.7); LYMPHOCYTES # (AUTO) 1.2 X 10^3 (1.0-4.0); LYMPHOCYTES % (AUTO) 10 % (12-44); MEAN CORPUSCULAR HEMOGLOBIN 31 PG (25-34); MEAN CORPUSCULAR HGB CONC 35 G/DL (32-36); MEAN CORPUSCULAR VOLUME 89 FL (80-99); MEAN PLATELET VOLUME 10.5 FL (7.4-10.4); MONOCYTES # (AUTO) 0.9 X 10^3 (0.0-1.0); MONOCYTES % (AUTO) 7 % (0-12); NEUTROPHILS # (AUTO) 9.3 X 10^3 (1.8-7.8); NEUTROPHILS % (AUTO) 78 % (42-75); PLATELET COUNT 187 10^3/uL (130-400); RED BLOOD COUNT 5.12 10^6/uL (4.35-5.85); RED CELL DISTRIBUTION WIDTH 13.2 % (10.0-14.5)
[2018-07-02 10:53] LABS: PROTHROMBIN TIME PATIENT 13.3 SEC (12.2-14.7)
[2018-07-02 10:59] LABS: ALANINE AMINOTRANSFERASE 45 U/L (0-55); ALBUMIN 4.3 GM/DL (3.2-4.5); ALKALINE PHOSPHATASE 90 U/L (40-136); BILIRUBIN,TOTAL 1.1 MG/DL (0.1-1.0); BUN/CREATININE RATIO 12; CALCIUM 9.3 MG/DL (8.5-10.1); CARBON DIOXIDE 22 MMOL/L (21-32); CHLORIDE 106 MMOL/L (98-107); CREATININE SERUM 1.04 MG/DL (0.60-1.30); GFR ESTIMATED > 60; GLUCOSE 115 MG/DL (70-105); MAGNESIUM 2.3 MG/DL (1.8-2.4); POTASSIUM 3.8 MMOL/L (3.6-5.0); SODIUM 137 MMOL/L (135-145); TOTAL PROTEIN 7.5 GM/DL (6.4-8.2)
[2018-07-02 11:07] LABS: MYOGLOBIN SERUM 41.1 NG/ML (10.0-92.0)
[2018-07-02] MEDS ORDERED: RT-ALBUTEROL/IPRATROPIUM 3 ML (DUONEB) VIAL INH ONE (12:00)
[2018-07-02] MEDS ORDERED: DEXAMETHASONE 10 MG/ML (DECADRON) 1 ML VIAL IV ONE (12:45)
[2018-07-02] MEDS ORDERED: ALBU18HF2 IH (13:03)
[2018-07-02 13:11] VITALS: BP 123/89
== END 2018-07-02 13:17 | disposition home or self-care (01) ==
LOC: EDUNIT# 10:00 → ER 10:00
DX: J40 Bronchitis, not specified as acute or chronic (principal); R07.89 Other chest pain; I10 Essential (primary) hypertension; Z87.442 Personal history of urinary calculi; Z79.82 Long term (current) use of aspirin; Z82.49 Family history of ischemic heart disease and other diseases of the circulatory system
CPT/HCPCS: 36415; 80053; 83735; 83874; 84484; 85025; 85379; 85610; 85730; 93005; 93041; 94640

== ENCOUNTER → 2018-08-08 | Outpatient (CLI) | payer BC ==
[~2018-08-08] MED LIST changes: +ALBU18HF2 IH
--- NOTE | 2018-08-08 18:00 | Cardiology Stress Test Report ---
Stress Test Report Date of Procedure/Referring: Date of Procedure: Aug 08, 2018 PCP Elizabeth Og MD Admitting Physician Carolyn Bowling DO Indications: Chest pain Baseline Blood Pressure: Blood Pressure Systolic: 130 Blood Pressure Diastolic: 83 Baseline EKG: Baseline EKG: sinus rhythm Summary & Conclusion: Summary: The patient was brought to the stress lab after informed consent was taken. Stress test was performed according to the standard chelly protocol. Baseline EKG showed sinus rhythm. Initial blood pressure was 130/83 mmHg. Maximum heart rate was 167 bpm and blood pressure 201/93 mmHg. Patient achieved 99% of maximum predicted heart rate response. Patient exercised for 9.56 minutes and achieved 11.5 mets. Patient did not have any chest pain, arrhythmias or ST segment changes during the stress test. Conclusion: Exercise stress test was negative for ischemia. Excellent functional capacity. Hypertensive response to exercise. Elizabeth OG MD Aug 08, 2018 6:00 pm
[2018-08-08 18:04] VITALS: BP 130/83
== END ==
LOC: CARD 12:42
PROVIDERS: ATTEND Internal Medicine Interventional Cardiology
DX: R07.89 Other chest pain (principal)
CPT/HCPCS: 93017; 93306

== ENCOUNTER 2018-12-06 11:54 | Outpatient (RCR) | payer BC ==
--- NOTE | 2018-12-06 13:39 | Diagnostic Imaging Report ---
INDICATION: Kidney stones. TIME OF EXAM: 12:24 p.m. COMPARISON: Correlation is made with prior study from 04/08/2018. FINDINGS: The bowel gas pattern is unremarkable. There is a tiny density overlying the left renal shadow approximately 2 mm in size, perhaps a small calculus. No other suspicious calcific densities are seen. No calculi along the course of the ureters are identified. IMPRESSION: Questionable tiny left renal calculus. The study is otherwise unremarkable. Dictated by: Dictated on workstation # [id number]
== END 2019-03-06 | disposition home or self-care (01) ==
LOC: RAD 11:54
PROVIDERS: ATTEND Urology
DX: N20.0 Calculus of kidney (principal)
CPT/HCPCS: 74018; 82140; 82340; 82507; 82570; 83735; 83945; 83986; 84105; 84133; 84300; 84392; 84560

== ENCOUNTER → 2018-12-06 | Outpatient (CLI) | payer BC ==
--- NOTE | 2018-12-06 19:03 | Diagnostic Imaging Report ---
INDICATION: Right groin pain. TECHNIQUE: Sonographic interrogation of the right groin was performed. FINDINGS: No sonographic abnormality is seen. No solid or cystic mass is detected. No definite herniated bowel loop is seen. IMPRESSION: Unremarkable right groin ultrasound. Dictated by: Dictated on workstation # [id number]
== END ==
LOC: RAD 11:47
PROVIDERS: ATTEND Family Medicine
DX: R10.31 Right lower quadrant pain (principal)
CPT/HCPCS: 76881

== ENCOUNTER → 2019-05-23 | Outpatient (CLI) | payer BC ==
--- NOTE | 2019-05-23 15:25 | Diagnostic Imaging Report ---
INDICATION: History of stones. COMPARISON: 12/06/2018 FINDINGS: Two supine radiographic views of the abdomen were obtained. Again identified is a tiny punctate opacity projecting over the left renal shadow measuring approximately 1-2 mm. No other unexpected extraosseous calcifications or radiopaque foreign bodies are seen. Small bowel loops are nondistended. Osseous structures show no gross acute abnormalities. IMPRESSION: 1. Persistent findings of possible punctate left renal calculus. Dictated by: Dictated on workstation # [id number]
== END ==
LOC: RAD 14:16
PROVIDERS: ATTEND Urology
DX: Z87.442 Personal history of urinary calculi (principal)
CPT/HCPCS: 74018

== ENCOUNTER 2019-09-23 20:58 | Emergency (ER) | payer BC ==
[~2019-09-23] VITALS: Ht 187 cm; Wt 75.0 kg
--- NOTE | 2019-09-23 22:15 | ED Fall/Injury ---
General Chief Complaint: Trauma-Non Activation Stated Complaint: PAIN IN RT HIP Nursing Triage Note: PT STATES HE FELL WHILE DISMOUNTING HIS HORSE ONTO HIS R HIP. PT VERBALIZES MILD PAIN AND IS UNABLE TO BEAR FULL WT. ON AFFECTED LIMB. PT DENIES STRIKING HEAD OR LOC, DENIES NECK OR BACK PAIN. Source: patient Exam Limitations: no limitations (ZULEYMA EAST MED STUDENT) History of Present Illness Date Seen by Provider: Sep 23, 2019 Time Seen by Provider: 21:58 Initial Comments Pt presents to ED after falling from horse while trying to dismount at 1600 today, 09/23/2019. As pt was swinging his leg over, horse moved causing pt to fall from onto right hip. Localizes pain to r inguinal region with radiation around leg to his glute. Pain is 2/10 while immobile and becomes 8/10 with movement and weight bearing, which pt can tolerate despite pain. Took 1 motrin for pain with some relief. Denies loss of consciousness, headache, neck pain, incontinence of bowel/bladder, nausea/vomiting. Occurred: this afternoon Severity: moderate Injuries/Pain Location: lower extremity (R hip ) Context: other (fall from horseback) Loss of Consciousness: no loss of consciousness Modifying Factors: Improves With Immobilization; Worse With Movement; Improves With Pain Medication Associated Symptoms (Fall): No Abdominal Pain, No Chest Pain, No Confusion, No Headache, No Lightheadedness, No Nausea/Vomiting, No Neck Pain, No Shortness of Air, No Trouble Walking, No Vision Changes (ZULEYMA EAST MED STUDENT) Occurred: this afternoon Severity: moderate Loss of Consciousness: no loss of consciousness Modifying Factors: Improves With Immobilization; Worse With Movement; Improves With Pain Medication (CAESAR FRANKLIN MD) Allergies and Home Medications Allergies Coded Allergies: No Known Drug Allergies (Unverified , 08/12/09) Home Medications Albuterol Sulfate 18 Gm Hfa.aer.ad, 2 PUFF IH Q6H PRN for SHORTNESS OF BREATH Prescribed by: CAESAR FRANKLIN on 07/02/18 1303 Dapsone 25 Mg Tablet, 50 MG PO DAILY, (Reported) Multivitamin 1 Each Tablet, 1 EACH PO DAILY, (Reported) Patient Home Medication List Home Medication List Reviewed: Yes (ZULEYMA EAST MED STUDENT) Home Medication List Reviewed: Yes (CAESAR FRANKLIN MD) Review of Systems Review of Systems Constitutional: No chills, No fever, No malaise Eyes: Denies Blurred Vision, Denies Pain Ears, Nose, Mouth, Throat: denies ear pain, denies nose pain, denies mouth pain, denies throat pain Respiratory: No cough, No dyspnea on exertion, No short of breath Cardiovascular: No chest pain, No edema, No Hx of Intervention, No palpitations Gastrointestinal: No abdominal pain, No constipation, No diarrhea, No nausea, No vomiting Genitourinary: No discharge, No incontinence, No pain Musculoskeletal: see HPI; No back pain, No joint pain Skin: No lesions, No lumps, No rash Psychiatric/Neurological: Denies Headache, Denies Numbness, Denies Tingling ([employer] EAST MED STUDENT) Respiratory: no symptoms reported Cardiovascular: no symptoms reported Musculoskeletal: joint pain; No joint swelling; muscle pain (CAESAR FRANKLIN MD) Past Ksxglup-Nbwpxg-Rcuzpg Hx Past Med/Social Hx: Reviewed Nursing Past Med/Soc Hx (CAESAR FRANKLIN MD) Patient Social History Alcohol Use: Occasionally Uses Alcohol Beverage of Choice: Beer Recreational Drug Use: No Smoking Status: Never a Smoker Recent Foreign Travel: No Contact w/Someone Who Travel: No Recent Hopitalizations: No Physical Abuse: No Sexual Abuse: No Mistreated: No Fear: No ([employer] E[employer] MED STUDENT) Immunizations Up To Date Tetanus Booster (TDap): Unknown PED Vaccines UTD: Yes ([employer]ULEYMA EAST MED STUDENT) Seasonal Allergies Seasonal Allergies: No (ZULEY[employer] EAST MED STUDENT) Past Medical History Surgeries: Yes (KIDNEY STONES) Respiratory: No Cardiac: Yes Hypertension Neurological: No Reproductive Disorders: No Sexually Transmitted Disease: No HIV/AIDS: No Genitourinary: Yes (LITHOTRIPSY.) Kidney Stones Gastrointestinal: No Musculoskeletal: No Endocrine: No 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) Loss of Vision: Denies Hearing Impairment: Denies Cancer: No Psychosocial: No Integumentary: No Blood Disorders: No Adverse Reaction/Blood Tranf: No (N/A) ([employer]ULEY[employer] EAST MED STUDENT) Family Medical History Reviewed Nursing Family Hx (CAESAR FRANKLIN MD) Cancer (daughter, retinoblastoma) (HUNDERTMARK,ZULEYMA,MED STUDENT) Physical Exam Vital Signs Vital Signs - First Documented 09/23/19 21:30 Temp 36.7 Pulse 89 Resp 20 B/P (MAP) 147/100 (116) Pulse Ox 94 O2 Delivery Room Air (CAESAR FRANKLIN MD) Vital Signs Capillary Refill : (ZULEYMA EAST,MED STUDENT) Height, Weight, BMI Height: 5'7.00" Weight: 195lbs. 0.0oz. [id number]; 30.9 BMI Method:Stated General Appearance: WD/WN, no apparent distress HEENT: PERRL/EOMI, normal ENT inspection, TMs normal, pharynx normal Neck: non-tender, supple Cardiovascular: regular rate, rhythm, no edema, no gallop, no murmur Respiratory: chest non-tender, lungs clear, normal breath sounds, no respiratory distress, no accessory muscle use Peripheral Pulses: 2+ Dorsalis Pedis (R), 2+ Left Dors-Pedis (L), 2+ Radial Pulses (R), 2+ Radial Pulses (L) Gastrointestinal: non tender, soft Back: no CVA tenderness, no vertebral tenderness Extremities: non-tender, normal inspection, no calf tenderness, normal capillary refill; No swelling Neurologic/Psychiatric: alert, oriented x 3 Skin: normal color, warm/dry Lymphatic: no adenopathy (A/P cervical, supra/infraclavicular ) (ZULEYMA EAST,MED STUDENT) General Appearance: WD/WN, no apparent distress Cardiovascular: regular rate, rhythm, no murmur Respiratory: lungs clear, normal breath sounds Extremities: pelvis stable, other (tender with abduction and adduction of the right hip. Full range of motion maintained though.) Neurologic/Psychiatric: alert, oriented x 3 (CAESAR FRANKLIN MD) Chandler Coma Score Best Eye Response: (4) Open Spontaneously Best Verbal Response: (5) Oriented Best Motor Response: (6) Obeys Commands (ZULEYMA EAST,MED STUDENT) Best Eye Response: (4) Open Spontaneously Best Verbal Response: (5) Oriented Best Motor Response: (6) Obeys Commands (CAESAR FRANKLIN MD) Progress/Results/Core Measures Results/Orders My Orders Orders - CAESAR FRANKLIN MD Hydrocodone/Apap 5/325 Tablet (Lortab 5 (09/23/19 23:00) Ketorolac Injection (Toradol Injection) (09/23/19 22:50) (CAESAR FRANKLIN MD) Medications Given in ED Current Medications Medications Dose Ordered Sig/Steven Route Start Time Stop Time Status Last Admin Dose Admin Acetaminophen/ Hydrocodone Bitart 1 tab ONCE ONCE PO 09/23/19 23:00 09/23/19 23:08 DC 09/23/19 23:34 1 TAB (CAESAR FRANKLIN MD) Vital Signs/I&O 09/23/19 09/23/19 21:30 23:34 Temp 36.7 36.7 Pulse 89 Resp 20 B/P (MAP) 147/100 (116) Pulse Ox 94 O2 Delivery Room Air (CAESAR FRANKLIN MD) Progress Progress Note : Time: 22:18 Progress Note Seen and evaluated. Ordering 3 view xray of hip/pelvis (ZULEYMA EAST,MED STUDENT) Progress Note : Progress Note As seen and evaluated the patient and agree with above except as indicated. Have directed the plan of care. Patient is here with right hip/groin pain. States pain goes around the hip. Injury tonight occurred while coming off a horse during roping. He is able to walk afterwards but noted that the pain worsened over time. He actually had 2 other roping events after the time of injury that he was able to complete. After sitting down later though, he worsen. Evaluation as above. Plan for pelvic and right hip x-ray. Hydrocodone 5/325 one tab by mouth. Toradol 30 mg IM. Monitor patient. 2359: I did discuss the case with Dr. Chawla regarding acetabular fracture. Nonsurgical fracture noted. Weightbearing as tolerated. Follow-up as needed. All of this was discussed with patient and family. Discharged home with return precautions. Patient and family verbalize understanding instructions and agreement with plan. (CAESAR FRANKLIN MD) Departure Impression Primary Impression: Closed right acetabular fracture Qualified Codes: S32.401A - Unspecified fracture of right acetabulum, i nitial encounter for closed fracture Disposition: 01 HOME, SELF-CARE Condition: Stable Departure-Patient Inst. Decision time for Depature: 00:11 (CAESAR FRANKLIN MD) Referrals: CRISTOBAL STEVENS DO (PCP/Family) Primary Care Physician SOHAN CHAWLA MD Patient Instructions: Pelvic Fracture (DC) Add. Discharge Instructions: All discharge instructions reviewed with patient and/or family. Voiced understanding. You may take Aleve one or 2 tablets twice daily as needed for pain. You may take Tylenol/acetaminophen 1000 mg every 6-8 hours as needed for pain. Weight bear as tolerated. You may use crutches if needed. Follow-up with Dr. Chawla next week for recheck and further evaluation as needed. Return for worse pain, weakness, numbness, difficulty with walking or going to the bathroom or other concerns as needed. ZULEYMA EAST,MED STUDENT Sep 23, 2019 22:15 CAESAR FRANKLIN MD Sep 24, 2019 00:12
[2019-09-23] MEDS ORDERED: KETOROLAC 30 MG/ML VIAL IM STA (22:50)
[2019-09-23] MEDS ORDERED: HYDROcodone/APAP 5 MG/325 MG (LORTAB) TAB PO ONE (23:00)
[2019-09-24 00:17] VITALS: BP 136/78
--- NOTE | 2019-09-24 07:20 | Diagnostic Imaging Report ---
INDICATION: Hip pain. Three views were obtained. FINDINGS: The alignment is normal. There is no fracture or dislocation. There are some degenerative changes. Soft tissues are unremarkable. IMPRESSION: Degenerative changes, otherwise unremarkable. Dictated by: Dictated on workstation # [id number]
== END 2019-09-24 00:19 | disposition home or self-care (01) ==
LOC: EDUNIT# 20:58 → ER 20:59
DX: S32.401A Unspecified fracture of right acetabulum, initial encounter for closed fracture (principal); I10 Essential (primary) hypertension; Z87.442 Personal history of urinary calculi; V80.010A Animal-rider injured by fall from or being thrown from horse in noncollision accident, initial encounter
CPT/HCPCS: 96372

== ENCOUNTER 2019-11-14 07:28 | Outpatient (RCR) | payer BC ==
[~2019-11-14 07:28] MED LIST changes: -TAMS0.4C98 PO; +TMSL.4C PO
--- NOTE | 2019-11-14 10:32 | Diagnostic Imaging Report ---
INDICATION: History of renal stones. TECHNIQUE: Single supine view of the abdomen 7:45 AM CORRELATION STUDY: 05/23/2019 FINDINGS: Moderate amount of overlying bowel gas and stool. Densities left upper quadrant could reflect a splenic granulomas. There is a small punctate density centered over the central aspect left kidney, appearing changed from prior study. Very questionable punctate calcification superior pole right kidney. No definitive calcification along the expected course of either ureter. Osseous structures are unremarkable. IMPRESSION: 1. Generally stable appearance about a punctate calcification central left kidney with questionable calcification over the superior pole right kidney. Dictated by: Dictated on workstation # [id number]
== END 2020-02-12 | disposition home or self-care (01) ==
LOC: RAD 07:28
PROVIDERS: ATTEND Urology
DX: Z87.442 Personal history of urinary calculi (principal)
CPT/HCPCS: 36415; 74018; 82140; 82340; 82507; 82570; 83735; 83945; 83986; 84105; 84133; 84300; 84392; 84560

== ENCOUNTER 2021-03-16 13:23 | Emergency (ER) | payer BC ==
[~2021-03-16] VITALS: Ht 170.2 cm; Wt 90.7 kg
[~2021-03-16 13:23] MED LIST changes: +MULT-567 PO; -MULT1TAB69 PO; -OXYC-471 PO; +OXYC1TAB11 PO
[2021-03-16] MEDS ORDERED: NS IV 1000 ML 1,000 ML IV SCH (14:15)
--- NOTE | 2021-03-16 14:20 | ED Respiratory ---
General Chief Complaint: Respiratory Problems Stated Complaint: COVID + SOB Nursing Triage Note: PT ARRIVED BY PRIVATE VEHCILE WITH CHIEF COMPLAINT OF COVID +. PT WAS ALERT, ORIENTED X4 AND AMBUALTORY TO ROOM 10. PT DOES NOT SHOW SIGNS OF RESPIRATORY DISTRESS. PT ON ROOM AIR WAS 92-95% spo2. PT STATED HE TESTED POSITIVE LAST SUNDAY. PT HAS HAD FEVER COUGH AND PAIN. PT LAST TOOK TYLENOL AT 0630. PT HAS HISTORY OF KIDNEYSTONES AND HYPERTENSION. PT DENIES SMOKING, ALCOHOL OR DRUG USE. VITALS WERE TAKEN, PT WAS HOOKED UP TO THE MONITOR AND EKG WAS COMPLETED. REPORT GIVEN TO PROVIDER. Source: patient Exam Limitations: no limitations History of Present Illness Date Seen by Provider: Mar 16, 2021 Time Seen by Provider: 13:43 Initial Comments Patient to the ER by private conveyance from home with chief complaint of being diagnosed with COVID-19 on Sunday, 5 days ago. Symptoms started 6 days ago. He had a pulse oximeter and was getting short of breath even at rest noting oxygen saturations 89 to 91%. He does not use oxygen at baseline. He has no history of lung disease, smoking or heart disease. No chest pain nausea or vomiting. Occasional cough. He was trying to use his inhaler and he said he could not even get a deep breath and for that. No productive cough. He has a history of hypertension and kidney stones. Diagnosed by his PCP, Dr. Bowling. Allergies and Home Medications Allergies Coded Allergies: No Known Drug Allergies (Unverified , 08/12/09) Home Medications Albuterol Sulfate 18 Gm Hfa.aer.ad, 2 PUFF IH Q6H PRN for SHORTNESS OF BREATH Prescribed by: CAESAR FRANKLIN on 07/02/18 1303 Dapsone 25 Mg Tablet, 50 MG PO DAILY, (Reported) Multivitamin 1 Each Tablet, 1 EACH PO DAILY, (Reported) Patient Home Medication List Home Medication List Reviewed: Yes Review of Systems Review of Systems Constitutional: No chills, No diaphoresis EENTM: No ear discharge, No ear pain Respiratory: cough (Occasional); No phlegm; short of breath; No wheezing Cardiovascular: No chest pain, No palpitations Gastrointestinal: No abdominal pain, No constipation, No nausea, No vomiting Genitourinary: No discharge, No dysuria All Other Systems Reviewed Negative Unless Noted: Yes Past Jqmgmxh-Pzsexr-Iotuad Hx Patient Social History Alcohol Use: Occasionally Uses Number of Drinks Today: AA Alcohol Beverage of Choice: Beer Smoking Status: Never a Smoker Recent Infectious Disease Expo: No Recent Hopitalizations: No Immunizations Up To Date Tetanus Booster (TDap): Unknown PED Vaccines UTD: Yes Seasonal Allergies Seasonal Allergies: Yes Past Medical History Surgeries: Yes (eye, kidney stone) Respiratory: No Cardiac: Yes Hypertension Neurological: No Reproductive Disorders: No Sexually Transmitted Disease: No HIV/AIDS: No Genitourinary: Yes Kidney Stones Gastrointestinal: No Musculoskeletal: No Endocrine: No HEENT: No Loss of Vision: Denies Hearing Impairment: Denies Cancer: No Psychosocial: No Integumentary: No Blood Disorders: No Adverse Reaction/Blood Tranf: No (N/A) Family Medical History Cancer Physical Exam Vital Signs - First Documented 03/16/21 13:30 Temp 37.7 Pulse 97 Resp 24 B/P (MAP) 136/81 (99) Pulse Ox 95 O2 Delivery Room Air Capillary Refill : Less Than 3 Seconds Height: 5'7.00" Weight: 195lbs. 0.0oz. [id number]; 31.00 BMI Method:Stated General Appearance: WD/WN, mild distress Eyes: Bilateral Eye Normal Inspection, Bilateral Eye PERRL, Bilateral Eye EOMI HEENT: PERRL/EOMI, normal ENT inspection Neck: full range of motion, normal inspection Respiratory: no accessory muscle use, respiratory distress (Mild with oxygen saturations 92 to 95% on room air while at rest. Low of 90 after ambulating to the room.), crackles (Few, bilateral basal), other (Respiratory rate 22) Cardiovascular: normal peripheral pulses, regular rate, rhythm Gastrointestinal: normal bowel sounds, non tender, soft Extremities: normal inspection, no pedal edema, normal capillary refill Neurologic/Psychiatric: alert, normal mood/affect, oriented x 3 Skin: normal color, warm/dry Progress/Results/Core Measures Suspected Sepsis Recent Fever Within 48 Hours: Yes Infection Criteria Present: Suspected New Infection New/Unexplained Altered Menta: No Sepsis Screen: Possible Severe Sepsis Risk SIRS Temperature: Pulse: 97 Respiratory Rate: 24 Laboratory Tests 03/16/21 14:18: White Blood Count 8.2 Blood Pressure 136 /81 Mean: 99 Laboratory Tests 03/16/21 14:18: Creatinine 1.15, Platelet Count 134, Total Bilirubin 0.6 Results/Orders Lab Results Laboratory Tests Test 03/16/21 14:18 Range/Units White Blood Count 8.2 4.3-11.0 10^3/uL Red Blood Count 4.68 4.30-5.52 10^6/uL Hemoglobin 14.4 13.3-17.7 g/dL Hematocrit 43 40-54 % Mean Corpuscular Volume 92 80-99 fL Mean Corpuscular Hemoglobin 31 25-34 pg Mean Corpuscular Hemoglobin Concent 34 32-36 g/dL Red Cell Distribution Width 12.5 10.0-14.5 % Platelet Count 134 130-400 10^3/uL Mean Platelet Volume 10.7 9.0-12.2 fL Immature Granulocyte % (Auto) 0 % Neutrophils (%) (Auto) 85 H 42-75 % Lymphocytes (%) (Auto) 10 L 12-44 % Monocytes (%) (Auto) 4 0-12 % Eosinophils (%) (Auto) 0 0-10 % Basophils (%) (Auto) 0 0-10 % Neutrophils # (Auto) 6.9 1.8-7.8 10^3/uL Lymphocytes # (Auto) 0.8 L 1.0-4.0 10^3/uL Monocytes # (Auto) 0.4 0.0-1.0 10^3/uL Eosinophils # (Auto) 0.0 0.0-0.3 10^3/uL Basophils # (Auto) 0.0 0.0-0.1 10^3/uL Immature Granulocyte # (Auto) 0.0 0.0-0.1 10^3/uL Percent Immature Platelet Fraction 6.1 0.0-7.6 % Blood Gas Puncture Site LT RAD Blood Gas Patient Temperature 99.8 Arterial Blood pH 7.45 H 7.37-7.43 Arterial Blood Partial Pressure CO2 37 35-45 MMHG Arterial Blood Partial Pressure O2 61 L 79-93 MMHG Arterial Blood HCO3 26 23-27 MMOL/L Arterial Blood Total CO2 26.6 21.0-31.0 MMOL/L Arterial Blood Oxygen Saturation 91 L 94-100 % Arterial Blood Base Excess 2.0 -2.5-2.5 MMOL/L Nikita Test YES-POS Blood Gas Ventilator Setting NO Blood Gas Inspired Oxygen ROOM AIR Sodium Level 138 135-145 MMOL/L Potassium Level 3.6 3.6-5.0 MMOL/L Chloride Level 99 98-107 MMOL/L Carbon Dioxide Level 27 21-32 MMOL/L Anion Gap 12 5-14 MMOL/L Blood Urea Nitrogen 12 7-18 MG/DL Creatinine 1.15 0.60-1.30 MG/DL Estimat Glomerular Filtration Rate > 60 BUN/Creatinine Ratio 10 Glucose Level 116 H 70-105 MG/DL Calcium Level 8.2 L 8.5-10.1 MG/DL Corrected Calcium 8.5 8.5-10.1 MG/DL Total Bilirubin 0.6 0.1-1.0 MG/DL Aspartate Amino Transf (AST/SGOT) 56 H 5-34 U/L Alanine Aminotransferase (ALT/SGPT) 46 0-55 U/L Alkaline Phosphatase 81 40-136 U/L C-Reactive Protein High Sensitivity 4.93 H 0.00-0.50 MG/DL Total Protein 6.8 6.4-8.2 GM/DL Albumin 3.6 3.2-4.5 GM/DL Procalcitonin 0.08 <0.10 NG/ML My Orders Orders - TIFFANY BE Arterial Blood Gas (03/16/21 14:12) Ed Iv/Invasive Line Start (03/16/21 14:12) Ns Iv 1000 Ml (Sodium Chloride 0.9%) (03/16/21 14:15) Cbc With Automated Diff (03/16/21 14:12) Comprehensive Metabolic Panel (03/16/21 14:12) Hs C Reactive Protein (03/16/21 14:12) Procalcitonin (Pct) (03/16/21 14:12) Continuous Ekg Monitoring (03/16/21 14:14) Ekg Tracing (03/16/21 14:14) Chest 1 View, Ap/Pa Only (03/16/21 15:08) Covid-19 External Lab Results (03/16/21 15:08) Vital Signs/I&O 03/16/21 13:30 Temp 37.7 Pulse 97 Resp 24 B/P (MAP) 136/81 (99) Pulse Ox 95 O2 Delivery Room Air Capillary Refill : Less Than 3 Seconds Blood Pressure Mean: 99 Progress Note #1: Time: 14:09 Progress Note EKG unremarkable. No anginal symptoms. Suspect he is having some mild shortness of air but his oxygen saturations are not significant yet. We will get an ABG and some basic labs and chest x-ray to look for the possibility of a coincident bacterial pneumonia. Liter of fluids and probably encouraged him to discontinue his diuretics for now. Septic vital signs likely related to viral pneumonia. Progress Note #2: Time: 15:27 Progress Note Patient has been resting comfortably in his room with oxygen saturations ranging from 88 to 93%. Good waveform seen. ABG demonstrates a PaO2 of 61 on room air after he had been laying down for about 30 minutes. He is becoming alkalotic with a pH of 7.47. We did call [facility] and they are going to try and set him up with a oxygen concentrator at home as he otherwise does not require inpatient services. ECG Initial ECG Impression Date: Mar 16, 2021 Initial ECG Impression Time: 14:00 Initial ECG Rate: 95 Initial ECG Rhythm: Normal Sinus Initial ECG Intervals: Normal Initial ECG Impression: Normal Comment Normal sinus rhythm without clinically relevant ST elevation or depression. Diagnostic Imaging Diagonstic Imaging: Xray Plain Films/CT/US/NM/MRI: chest Comments Bilateral patchy groundglass opacities consistent with atypical viral pneumonia. Reviewed: Reviewed by Me Departure Impression Primary Impression: COVID-19 Additional Impression: Hypoxia Disposition: 01 HOME, SELF-CARE Condition: Stable Departure-Patient Inst. Decision time for Depature: 15:38 Referrals: CRISTOBAL BOWLING DO (PCP/Family) Primary Care Physician Patient Instructions: COVID-19 (DC) Add. Discharge Instructions: Drink plenty of fluids. Tylenol and ibuprofen as necessary for body aches or fever. Use your other medications as prescribed. You may discontinue the hydrochlorothiazide, HCTZ until you are feeling better from your COVID-19 pneumonia. Return to the ER promptly if you cannot maintain oxygen saturations above 90% while at rest consistently. Oxygen 2 L by nasal cannula through the oxygen concentrator as necessary to keep your oxygen saturations above 94%. All discharge instructions reviewed with patient and/or family. Voiced understa nding. Scripts [concentrator, O2] No Conflict Check EA NA DAILY PRN for hypoxia, #1 0 Refills 2 liters by nasal cannula to keep SpO2 above 94% Prov: TIFFANY BE 03/16/21 Copy Copies To 1: CRISTOBAL BOWLING TITUS J Mar 16, 2021 14:20
[2021-03-16 14:28] LABS: ABG OXYGEN SATURATION 91 % (94-100); ABG PCO2 37 MMHG (35-45); ABG PH 7.45 (7.37-7.43); ABG PO2 61 MMHG (79-93); ABG TCO2 26.6 MMOL/L (21.0-31.0)
[2021-03-16 14:30] LABS: ALLENS TEST YES-POS; BASOPHILS % (AUTO) 0 % (0-10); EOSINOPHILS % (AUTO) 0 % (0-10); HEMATOCRIT 43 % (40-54); INSPIRED O2 ROOM AIR; MEAN CORPUSCULAR VOLUME 92 fL (80-99); PATIENT TEMP 99.8; PLATELET COUNT 134 10^3/uL (130-400); VENTILATOR NO
[2021-03-16 14:31] LABS: HEMOGLOBIN 14.4 g/dL (13.3-17.7); LYMPHOCYTES # (AUTO) 0.8 10^3/uL (1.0-4.0); LYMPHOCYTES % (AUTO) 10 % (12-44); MEAN CORPUSCULAR HEMOGLOBIN 31 pg (25-34); MEAN CORPUSCULAR HGB CONC 34 g/dL (32-36); MEAN PLATELET VOLUME 10.7 fL (9.0-12.2); MONOCYTES # (AUTO) 0.4 10^3/uL (0.0-1.0); MONOCYTES % (AUTO) 4 % (0-12); NEUTROPHILS # (AUTO) 6.9 10^3/uL (1.8-7.8); NEUTROPHILS % (AUTO) 85 % (42-75); WHITE BLOOD COUNT 8.2 10^3/uL (4.3-11.0)
[2021-03-16 14:40] LABS: ALBUMIN 3.6 GM/DL (3.2-4.5)
[2021-03-16 14:41] LABS: CHLORIDE 99 MMOL/L (98-107); POTASSIUM 3.6 MMOL/L (3.6-5.0); SODIUM 138 MMOL/L (135-145)
[2021-03-16 14:42] LABS: CALCIUM 8.2 MG/DL (8.5-10.1)
[2021-03-16 14:43] LABS: GLUCOSE 116 MG/DL (70-105); TOTAL PROTEIN 6.8 GM/DL (6.4-8.2)
[2021-03-16 14:44] LABS: CARBON DIOXIDE 27 MMOL/L (21-32)
[2021-03-16 14:45] LABS: BILIRUBIN,TOTAL 0.6 MG/DL (0.1-1.0)
[2021-03-16 14:46] LABS: ALKALINE PHOSPHATASE 81 U/L (40-136)
[2021-03-16 14:47] LABS: CREATININE SERUM 1.15 MG/DL (0.60-1.30); GFR ESTIMATED > 60
[2021-03-16 14:48] LABS: BUN/CREATININE RATIO 10
[2021-03-16 14:49] LABS: ALANINE AMINOTRANSFERASE 46 U/L (0-55)
[2021-03-16] MEDS ORDERED: [UNRECOGNIZED DRUG - SUPPLY] ×2 (15:38→17:52)
--- NOTE | 2021-03-16 15:58 | Diagnostic Imaging Report ---
HISTORY: Covid positive, shortness of air. COMPARISON: None. TECHNIQUE: Single frontal view of the chest. FINDINGS: There are patchy airspace opacities in the lungs bilaterally including the midlungs and lung bases. No pleural effusion or pneumothorax is seen. The cardiac silhouette is normal in size. IMPRESSION: Patchy airspace opacities in the lungs bilaterally, consistent with There is The report was faxed to Infection Control by [email or web address]@3:56 PM. Dictated by: Dictated on workstation # [id number]
[2021-03-16 16:05] VITALS: BP 123/75
[2021-03-17] MEDS ORDERED: BENZ-36 PO (13:33)
[2021-03-17] MEDS ORDERED: RT-ALBUINH INH (13:33)
[2021-03-17] MEDS ORDERED: CHOL-34 PO (13:33)
[2021-03-17] MEDS ORDERED: ASPI-1238 PO (13:33)
[2021-03-17] MEDS ORDERED: ASCO500T17 PO (13:33)
[2021-03-17] MEDS ORDERED: HYDR12.56 PO (13:33)
[2021-03-17] MEDS ORDERED: FLUT9.9S NSEACH (13:33)
[2021-03-17] MEDS ORDERED: D-ME473S11 PO (13:33)
[2021-03-17] MEDS ORDERED: ZINC220T3 PO (13:33)
== END 2021-03-16 16:18 | disposition home or self-care (01) ==
LOC: EDUNIT# 13:23 → ER 13:25
DX: U07.1 COVID-19 (principal); R09.02 Hypoxemia; I10 Essential (primary) hypertension
CPT/HCPCS: 36415; 71045; 80053; 82805; 84145; 85025; 86141; 93005

== ENCOUNTER 2021-03-17 09:16 | Inpatient (IN) | payer BC ==
[~2021-03-17] VITALS: Ht 170 cm; Wt 98.4 kg
[~2021-03-17 09:16] MED LIST changes: +[UNRECOGNIZED DRUG - SUPPLY]
[2021-03-17 11:07] LABS: ABG BASE EXCESS 0.6 MMOL/L (-2.5-2.5); ABG OXYGEN SATURATION 88 % (94-100); ABG PCO2 35 MMHG (35-45); ABG PH 7.46 (7.37-7.43); ABG PO2 53 MMHG (79-93); ABG TCO2 25.2 MMOL/L (21.0-31.0)
[2021-03-17 11:10] LABS: EOSINOPHILS % (AUTO) 0 % (0-10); MONOCYTES # (AUTO) 0.3 10^3/uL (0.0-1.0); MONOCYTES % (AUTO) 4 % (0-12)
[2021-03-17 11:10] LABS: ALLENS TEST YES-POS; INSPIRED O2 2; PATIENT TEMP 36.9; VENTILATOR NO
[2021-03-17 11:12] LABS: BASOPHILS % (AUTO) 0 % (0-10); HEMATOCRIT 41 % (40-54); HEMOGLOBIN 13.6 g/dL (13.3-17.7); LYMPHOCYTES # (AUTO) 0.5 10^3/uL (1.0-4.0); LYMPHOCYTES % (AUTO) 6 % (12-44); MEAN CORPUSCULAR HEMOGLOBIN 30 pg (25-34); MEAN CORPUSCULAR HGB CONC 33 g/dL (32-36); MEAN CORPUSCULAR VOLUME 91 fL (80-99); MEAN PLATELET VOLUME 10.9 fL (9.0-12.2); NEUTROPHILS # (AUTO) 6.9 10^3/uL (1.8-7.8); NEUTROPHILS % (AUTO) 89 % (42-75); PLATELET COUNT 129 10^3/uL (130-400); WHITE BLOOD COUNT 7.8 10^3/uL (4.3-11.0)
[2021-03-17 11:28] LABS: BAND NEUTROPHILS 5 %; BASOPHILS % (MANUAL) 0 %; EOSINOPHILS % (MANUAL) 0 %; LYMPHOCYTES % (MANUAL) 8 %; MONOCYTES % (MANUAL) 4 %; NEUTROPHILS % (MANUAL) 83 %; RBC MORPH NORMAL
[2021-03-17 11:30] LABS: ALANINE AMINOTRANSFERASE 47 U/L (0-55); ALBUMIN 3.2 GM/DL (3.2-4.5); ALKALINE PHOSPHATASE 84 U/L (40-136); BILIRUBIN,TOTAL 0.7 MG/DL (0.1-1.0); BUN/CREATININE RATIO 13; CALCIUM 8.1 MG/DL (8.5-10.1); CARBON DIOXIDE 23 MMOL/L (21-32); CHLORIDE 100 MMOL/L (98-107); CREATININE SERUM 0.95 MG/DL (0.60-1.30); GFR ESTIMATED > 60; GLUCOSE 114 MG/DL (70-105); POTASSIUM 3.9 MMOL/L (3.6-5.0); SODIUM 132 MMOL/L (135-145); TOTAL PROTEIN 6.9 GM/DL (6.4-8.2)
[2021-03-17 12:00] VITALS: BP 132/76
[2021-03-17] MEDS: ENOXAPARIN 40 MG/0.4 ML (LOVENOX) SYR SC SCH (12:01)
[2021-03-17] MEDS: NS IV 1000 ML 1,000 ML IV SCH (12:02)
--- NOTE | 2021-03-17 12:21 | Diagnostic Imaging Report ---
INDICATION: Pneumonia. COMPARISON: 03/16/2021 FINDINGS: Single frontal radiographic view of the chest was obtained and again demonstrates scattered bilateral infiltrates. Overall, burden of disease has progressed when compared to prior exam. There is no large effusion or pneumothorax. Cardiac silhouette and pulmonary vasculature are stable. Osseous structures show no new acute abnormalities. IMPRESSION: 1. Interval progression of bilateral infiltrate. Dictated by: Dictated on workstation # [id number]
[2021-03-17] MEDS ORDERED: CATHETER FLUSH 10 ML SYR IV PRN (13:15)
[2021-03-17] MEDS ORDERED: AZITHROMYCIN INJECTION 500 MG in NS (IVPB) 250 ML IV NR (13:15)
[2021-03-17] MEDS ORDERED: ZINC220T3 PO (13:33)
[2021-03-17] MEDS ORDERED: HYDR12.56 PO (13:33)
[2021-03-17] MEDS ORDERED: D-ME473S11 PO (13:33)
[2021-03-17] MEDS ORDERED: ASCO500T17 PO (13:33)
[2021-03-17] MEDS ORDERED: BENZ-36 PO (13:33)
[2021-03-17] MEDS ORDERED: ASPI-1238 PO (13:33)
[2021-03-17] MEDS ORDERED: CHOL-34 PO (13:33)
[2021-03-17] MEDS ORDERED: RT-ALBUINH INH (13:33)
[2021-03-17] MEDS ORDERED: FLUT9.9S NSEACH (13:33)
[2021-03-17] MEDS: cefTRIAXone 1,000 MG in WATER (STERILE) FOR INJECTION 10 ML IV SCH (14:18)
[2021-03-17] MEDS: ONDANSETRON 4 MG/2 ML (SDV) Z0FRAN IV PRN ×2 (14:26→20:44)
[2021-03-17 16:09] VITALS: BP 123/65
--- NOTE | 2021-03-17 18:29 | History & Physical ---
History of Present Illness History of Present Illness Reason for visit/HPI This is a 55 year old male who tested positive for COVID-19 on 03/11/21. He was seen yesterday in the emergency room with worsening shortness of air. He was sent home on oxygen When the oxygen company came to check on him today, his oxygen saturation was down in the 80s on 5L NC so it was decided to directly admit him to the hospital for further evaluation and treatment. Date of Admission Mar 17, 2021 at 09:55 Date Seen by a Provider: Mar 17, 2021 Time Seen by a Provider: 18:23 I consulted on this patient on 03/17/21 18:22 Attending Physician Carolyn Stevens DO Admitting Physician Carolyn Stevens DO Consult Allergies and Home Medications Allergies Coded Allergies: No Known Drug Allergies (Unverified , 08/12/09) Home Medications Albuterol Sulfate 6.7 Gm Hfa.aer.ad, 2 PUFF INH Q4H PRN for SHORTNESS OF BREATH, (Reported) Last Action: Reviewed Ascorbic Acid 500 Mg Tablet, 500 MG PO DAILY, (Reported) Last Action: Reviewed Aspirin 81 Mg Tablet.dr, 81 MG PO DAILY, (Reported) Last Action: Reviewed Benzonatate 100 Mg Capsule, 100-200 MG PO TID PRN for COUGH, (Reported) Last Action: Reviewed Cholecalciferol (Vitamin D3) 25 Mcg Tablet, 25 MCG PO DAILY, (Reported) Last Action: Reviewed Dapsone 25 Mg Tablet, 50 MG PO DAILY, (Reported) TAKES 2 (25MG) TABS Last Action: Reviewed Fluticasone Propionate 9.9 Ml [place].susp, 1 SPRAY NSEACH BID PRN for CONGESTION, (Reported) Last Action: Reviewed Hydrochlorothiazide 12.5 Mg Tablet, 12.5 MG PO DAILY, (Reported) Last Action: Reviewed Multivitamin 1 Each Tablet, 1 EACH PO DAILY, (Reported) Last Action: Reviewed Promethazine/Dextromethorphan 473 Ml Syrup, 5 ML PO Q4H PRN for COUGH, (Reported) Last Action: Reviewed Zinc Sulfate 50 Mg Tablet, 50 MG PO DAILY, (Reported) Last Action: Reviewed Patient Home Medication List Home Medication List Reviewed: Yes Past Nrpssqk-Uajdyp-Vgryth Hx Past Med/Social Hx: Reviewed Nursing Past Med/Soc Hx Patient Social History Marrital Status: Alcohol Beverage of Choice: Beer Smoking Status: Never a Smoker Recent Hopitalizations: No Immunizations Up To Date Tetanus Booster (TDap): Unknown Pediatric: Yes Seasonal Allergies Seasonal Allergies: Yes Past Medical History Cardiac: Hypertension Reproductive: No Sexually Transmitted Disease: No HIV/AIDS: No Genitourinary: Kidney Stones Loss of Vision: Denies Hearing Impairment: Denies History of Blood Disorders: No Adverse Reaction to Blood Brody: No (N/A) Family History Cancer Review of Systems Constitutional: fever, weakness Respiratory: cough, dyspnea on exertion, short of breath, wheezing Cardiovascular: No no symptoms reported, No see HPI, No chest pain, No edema, No Hx of Intervention, No palpitations, No syncope, No vascular heart diseas, No other Gastrointestinal: loss of appetite, nausea, vomiting Genitourinary: No no symptoms reported, No see HPI, No decreased output, No discharge, No dysuria, No frequency, No hematuria, No hesitancy, No incontinence, No nocturia, No pain, No other Musculoskeletal: muscle weakness Skin: No no symptoms reported, No see HPI, No change in color, No change in hair/nails, No dryness, No hx of skin cancer, No lesions, No lumps, No pruritus, No rash, No other Psychiatric/Neurological: Weakness Physical Exam Vital Signs Vital Signs - First Documented 03/17/21 12:00 Temp 36.0 Pulse 88 Resp 20 B/P (MAP) 132/76 (94) Pulse Ox 93 O2 Delivery Nasal Cannula O2 Flow Rate 2.00 Capillary Refill : Height, Weight, BMI Height: 5'7.00" Weight: 195lbs. 0.0oz. 88.341985yd; 32.80 BMI Method:Stated General Appearance: Mild Distress HEENT: Pharyngeal Erythema Neck: Supple Respiratory: Decreased Breath Sounds Cardiovascular: Regular Rate, Rhythm Gastrointestinal: Normal Bowel Sounds, Non Tender, Soft Rectal: Deferred Back: No CVA Tenderness Extremity: No Calf Tenderness, No Pedal Edema Neurologic/Psychiatric: Alert, Oriented x3 Skin: Warm/Dry Comments Laboratory Tests 03/17/21 10:52: White Blood Count 7.8, Red Blood Count 4.51, Hemoglobin 13.6, Hematocrit 41, Mean Corpuscular Volume 91, Mean Corpuscular Hemoglobin 30, Mean Corpuscular Hemoglobin Concent 33, Red Cell Distribution Width 12.6, Platelet Count 129L, Mean Platelet Volume 10.9, Immature Granulocyte % (Auto) 1, Neutrophils (%) (Auto) 89H, Lymphocytes (%) (Auto) 6L, Monocytes (%) (Auto) 4, Eosinophils (%) (Auto) 0, Basophils (%) (Auto) 0, Neutrophils # (Auto) 6.9, Lymphocytes # (Auto) 0.5L, Monocytes # (Auto) 0.3, Eosinophils # (Auto) 0.0, Basophils # (Auto) 0.0, Immature Granulocyte # (Auto) 0.1, Neutrophils % (Manual) 83, Lymphocytes % (Manual) 8, Monocytes % (Manual) 4, Eosinophils % (Manual) 0, Basophils % (Manual) 0, Band Neutrophils 5, Percent Immature Platelet Fraction 6.2, Blood Morphology Comment NORMAL, D-Dimer 1.25H, Sodium Level 132L, Potassium Level 3.9, Chloride Level 100, Carbon Dioxide Level 23, Anion Gap 9, Blood Urea Nitrogen 12, Creatinine 0.95, Estimat Glomerular Filtration Rate > 60, BU N/Creatinine Ratio 13, Glucose Level 114H, Calcium Level 8.1L, Corrected Calcium 8.7, Total Bilirubin 0.7, Aspartate Amino Transf (AST/SGOT) 71H, Alanine Aminotransferase (ALT/SGPT) 47, Alkaline Phosphatase 84, Troponin I < 0.028, C- Reactive Protein High Sensitivity 11.70H, Total Protein 6.9, Albumin 3.2, Procalcitonin 0.10H 03/17/21 11:02: Blood Gas Puncture Site R RAD, Blood Gas Patient Temperature 36.9, Arterial Blood pH 7.46H, Arterial Blood Partial Pressure CO2 35, Arterial Blood Partial Pressure O2 53L, Arterial Blood HCO3 24, Arterial Blood Total CO2 25.2, Arterial Blood Oxygen Saturation 88L, Arterial Blood Base Excess 0.6, Nikita Test YES-POS, Blood Gas Ventilator Setting NO, Blood Gas Inspired Oxygen 2 Assessment/Plan Assessment and Plan 1. COVID-19 Pneumonia with Hypoxia--admit to medical floor, oxygen and advance to Vapotherm if needed, IV decadron, Covalescent plasma, Lovenox for DVT prophylaxis, Rocephin/Zithromax due to worsening infiltrates on CXR 2. Nausea--IV protonix and IV zofran prn Admission Diagnosis Admission Status: Inpatient Order (span 2 midnights) Reason for Inpatient Admission: Will need at least 48hrs of IV decadron and oxygen support, etc. CAROLYN STEVENS DO Mar 17, 2021 18:29
[2021-03-17] MEDS ORDERED: PANTOPRAZOLE 40 MG (PROTONIX) VIAL IV NR (18:30)
[2021-03-17 19:45] VITALS: BP 108/57
[2021-03-17] MEDS: ACETAMINOPHEN 325 MG TABLET PO PRN (20:44)
[2021-03-17] MEDS: guaiFENesin SYRUP 100 MG/5 ML 10 ML (ROBITUSSIN SF) PO PRN (20:45)
[2021-03-17] MEDS: RT-ALBUTEROL INHALER HFA (VENTOLIN HFA) 18 GM IH SCH (22:33)
[2021-03-18] VITALS (7 sets, daily range): BP systolic 97–132; BP diastolic 55–68
[2021-03-18] MEDS: ACETAMINOPHEN 325 MG TABLET PO PRN ×2 (00:56→09:04)
[2021-03-18] MEDS: guaiFENesin SYRUP 100 MG/5 ML 10 ML (ROBITUSSIN SF) PO PRN ×3 (00:56→20:01)
[2021-03-18] MEDS: NS IV 1000 ML 1,000 ML IV SCH ×2 (00:56→12:10)
[2021-03-18] MEDS: RT-ALBUTEROL INHALER HFA (VENTOLIN HFA) 18 GM IH SCH ×6 (02:56→22:33)
[2021-03-18] MEDS: PANTOPRAZOLE 40 MG (PROTONIX) VIAL IV SCH (09:04)
[2021-03-18] MEDS: ENOXAPARIN 40 MG/0.4 ML (LOVENOX) SYR SC SCH (09:04)
[2021-03-18] MEDS: AZITHROMYCIN 250 MG TAB (ZITHROMAX) PO SCH (09:04)
--- NOTE | 2021-03-18 11:16 | Progress Note ---
Subjective Date Seen by a Provider: Mar 18, 2021 Time Seen by a Provider: 11:12 Subjective/Events-last exam Fwup COVID pneumonia with hypoxia, nausea. Slept prone last night. Up to 6L NC. Feels a little better overall. Objective Exam Vital Signs Date Time Temp Pulse Resp B/P (MAP) Pulse Ox O2 Delivery O2 Flow Rate FiO2 03/18/21 08:00 High Flow N/C 6.00 03/18/21 08:00 38.0 96 18 104/55 (71) 91 Nasal Cannula 8.00 03/18/21 07:36 86 High Flow N/C 6.00 03/18/21 07:00 85 03/18/21 03:43 38.2 88 18 118/63 (81) 92 Nasal Cannula 6.00 03/18/21 03:15 90 High Flow N/C 6.00 03/18/21 01:00 90 03/18/21 00:00 38.0 90 18 132/59 (83) 95 Nasal Cannula 4.00 03/17/21 22:46 91 Nasal Cannula 4.00 03/17/21 21:10 100 03/17/21 20:00 91 Nasal Cannula 4.00 03/17/21 19:45 37.8 96 20 108/57 (74) 91 Nasal Cannula 4.00 03/17/21 18:56 Nasal Cannula 4.00 03/17/21 16:09 38.0 100 20 123/65 (84) 90 Nasal Cannula 4.00 03/17/21 12:00 36.0 88 20 132/76 (94) 93 Nasal Cannula 2.00 I & O 03/18/21 07:00 Intake Total 2720 ml Balance 2720 ml Capillary Refill : General Appearance: Mild Distress Neck: Supple Respiratory: Crackles (left sided), Decreased Breath Sounds Cardiovascular: Regular Rate, Rhythm Gastrointestinal: normal bowel sounds, non tender, soft Extremity: Non Tender, No Calf Tenderness Neurologic/Psychiatric: Alert, Oriented x3 Assessment/Plan Assessment/Plan Assess & Plan/Chief Complaint 1. COVID Pneumonia with Hypoxia--on IV decadron, oxygen now at 6L NC--will ad lepe to vapotherm if worsens, repeat CXR now, continue albuterol/IS, continue Rocephin/Zithromax, awaiting Covalescent plasma from blood bank, continue lovenox for DVT prophylaxis 2. Nausea--zofran helping, on protonix for dyspepsia/GI prophylaxis Clinical Quality Measures Admission Status Admission Dx 1. COVID-19 Pneumonia with Hypoxia--admit to medical floor, oxygen and advance to Vapotherm if needed, IV decadron, Covalescent plasma, Lovenox for DVT prophylaxis, Rocephin/Zithromax due to worsening infiltrates on CXR 2. Nausea--IV protonix and IV zofran prn CRISTOBAL STEVENS DO Mar 18, 2021 11:15
--- NOTE | 2021-03-18 12:02 | Diagnostic Imaging Report ---
EXAMINATION: Chest 1 view, AP/PA only. INDICATION: Covid 19. COMPARISON: 03/17/2021 FINDINGS: Worsening of bilateral perihilar heterogeneous consolidations. No pneumothorax or pleural effusion. Normal cardiac silhouette. IMPRESSION: 1. Worsening of multifocal pulmonary consolidations that may be due to progression of Covid 19 pneumonia. Dictated by: Dictated on workstation # [id number]
[2021-03-18] MEDS: cefTRIAXone 1,000 MG in WATER (STERILE) FOR INJECTION 10 ML IV SCH (15:08)
[2021-03-19] VITALS (16 sets, daily range): BP systolic 109–162; BP diastolic 53–95
[2021-03-19] MEDS: NS IV 1000 ML 1,000 ML IV SCH ×2 (01:20→12:29)
[2021-03-19] MEDS: RT-ALBUTEROL INHALER HFA (VENTOLIN HFA) 18 GM IH SCH ×6 (02:02→21:59)
[2021-03-19] MEDS: LORazepam 1 MG (ATIVAN) TAB PO PRN (02:55)
[2021-03-19 06:26] LABS: BASOPHILS % (AUTO) 0 % (0-10); EOSINOPHILS % (AUTO) 0 % (0-10); HEMATOCRIT 40 % (40-54); LYMPHOCYTES # (AUTO) 0.6 10^3/uL (1.0-4.0); LYMPHOCYTES % (AUTO) 7 % (12-44); MEAN CORPUSCULAR HEMOGLOBIN 30 pg (25-34); MEAN CORPUSCULAR HGB CONC 33 g/dL (32-36); MEAN CORPUSCULAR VOLUME 92 fL (80-99); MEAN PLATELET VOLUME 10.5 fL (9.0-12.2); MONOCYTES # (AUTO) 0.3 10^3/uL (0.0-1.0); MONOCYTES % (AUTO) 3 % (0-12); NEUTROPHILS % (AUTO) 89 % (42-75); PLATELET COUNT 172 10^3/uL (130-400)
[2021-03-19 06:46] LABS: CHLORIDE 101 MMOL/L (98-107); POTASSIUM 3.9 MMOL/L (3.6-5.0); SODIUM 137 MMOL/L (135-145)
[2021-03-19 06:47] LABS: CALCIUM 7.9 MG/DL (8.5-10.1)
[2021-03-19 06:48] LABS: GLUCOSE 114 MG/DL (70-105); TOTAL PROTEIN 6.2 GM/DL (6.4-8.2)
[2021-03-19 06:49] LABS: CARBON DIOXIDE 23 MMOL/L (21-32)
[2021-03-19 06:50] LABS: BILIRUBIN,TOTAL 0.7 MG/DL (0.1-1.0)
[2021-03-19 06:51] LABS: ALKALINE PHOSPHATASE 80 U/L (40-136)
[2021-03-19 06:52] LABS: CREATININE SERUM 0.98 MG/DL (0.60-1.30); GFR ESTIMATED > 60
[2021-03-19 06:53] LABS: BUN/CREATININE RATIO 10
[2021-03-19 06:55] LABS: ALANINE AMINOTRANSFERASE 49 U/L (0-55)
[2021-03-19] MEDS: PANTOPRAZOLE 40 MG (PROTONIX) VIAL IV SCH (09:11)
[2021-03-19] MEDS: FLUTICASONE NASAL SPRAY (FLONASE) 16 GM BTL NS SCH (09:11)
[2021-03-19] MEDS: AZITHROMYCIN 250 MG TAB (ZITHROMAX) PO SCH (09:12)
--- NOTE | 2021-03-19 09:45 | Progress Note ---
Subjective Subjective Date Seen by Provider: Mar 19, 2021 Time Seen by Provider: 09:25 Patient has continued to increase in oxygen needs. He is now on BiPAP. CXR this AM demonstrates worsening of bilateral consolidation- supporting COVID pneumonia. He denies any increased work of breathing. His throat feels dry but feels like the BiPAP is helping with breathing. Discussed his wishes- he would allow being intubated as last resort. last fever 38C at 8am 03/18/21 Review of Systems General: No Chills, No Night Sweats HEENT: No Head Aches Pulmonary: No Dyspnea, No Cough Cardiovascular: No: Chest Pain, Palpitations Gastrointestinal: No: Nausea, Vomiting, Abdominal Pain Genitourinary: No Dysuria Neurological: Weakness Objective Exam Vital Signs Vital Signs Date Time Temp Pulse Resp B/P (MAP) Pulse Ox O2 Delivery O2 Flow Rate FiO2 03/19/21 08:30 37.0 92 54 109/53 (71) 95 NIV Bilevel 80.00 03/19/21 08:00 NIV CPAP 03/19/21 07:42 92 54 95 80.00 03/19/21 07:00 88 03/19/21 05:00 37.2 90 36 131/86 (101) 92 NIV Bilevel 80.00 03/19/21 02:55 37.4 88 35 126/84 (98) 92 NIV Bilevel 80.00 03/19/21 02:02 84 30 93 80.00 03/19/21 01:00 84 03/18/21 23:37 37.6 93 32 115/61 (79) 91 NIV Bilevel 80.00 03/18/21 22:34 81 30 95 80.00 03/18/21 20:00 90 Vapotherm 40.00 90 03/18/21 19:41 37.0 101 22 129/66 (87) 90 Vapotherm 40.00 90.00 03/18/21 19:00 98 03/18/21 18:55 94 Vapotherm 40.00 90 03/18/21 16:04 37.7 82 22 97/59 (72) 94 Vapotherm 40.00 90.00 03/18/21 13:51 95 Vapotherm 40.00 100 03/18/21 12:50 93 03/18/21 12:00 37.0 87 18 123/68 (86) 91 Nasal Cannula 10.00 03/18/21 11:19 89 High Flow N/C 8.00 I & O 03/19/21 07:00 Intake Total 2360 ml Output Total 550 ml Balance 1810 ml General Appearance: Mild Distress HEENT: PERRL/EOMI Neck: Supple Respiratory: Crackles, Decreased Breath Sounds, Respiratory Distress Cardiovascular: Regular Rate, Rhythm Gastrointestinal: Normal Bowel Sounds, Non Tender, Soft Rectal: Deferred Back: No CVA Tenderness Extremity: Non Tender, No Calf Tenderness Neurologic/Psychiatric: Alert, Oriented x3 Skin: Warm/Dry Results Lab Laboratory Tests 03/19/21 06:11: White Blood Count 9.0, Red Blood Count 4.29L, Hemoglobin 13.0L, Hematocrit 40, Mean Corpuscular Volume 92, Mean Corpuscular Hemoglobin 30, Mean Corpuscular Hemoglobin Concent 33, Red Cell Distribution Width 12.6, Platelet Count 172, Mean Platelet Volume 10.5, Immature Granulocyte % (Auto) 1, Neutrophils (%) (Auto) 89H, Lymphocytes (%) (Auto) 7L, Monocytes (%) (Auto) 3, Eosinophils (%) (Auto) 0, Basophils (%) (Auto) 0, Neutrophils # (Auto) 8.0H, Lymphocytes # (Auto) 0.6L, Monocytes # (Auto) 0.3, Eosinophils # (Auto) 0.0, Basophils # (Auto) 0.0, Immature Granulocyte # (Auto) 0.1, Sodium Level 137, Potassium Level 3.9, Chloride Level 101, Carbon Dioxide Level 23, Anion Gap 13, Blood Urea Nitrogen 10, Creatinine 0.98, Estimat Glomerular Filtration Rate > 60, BUN/Creatinine Ratio 10, Glucose Level 114H, Calcium Level 7.9L, Corrected Calcium 8.7, Total Bilirubin 0.7, Aspartate Amino Transf (AST/SGOT) 86H, Alanine Aminotransferase (ALT/SGPT) 49, Alkaline Phosphatase 80, Total Protein 6.2L, Albumin 3.0L Assessment/Plan Assessment/Plan Assessment and Plan 03/19/21- transferred to ICU for closer monitoring and eICU consult. Continue dexamethasone IV, azithromycin, rocephin. Monitor labs. On IVF while on BiPAP. repeat labs and CXR in AM. Dispo: prognosis: guarded. Problems: (1) Acute respiratory failure with hypoxia (2) COVID-19 ELIZABETH MTZ MD Mar 19, 2021 09:45
[2021-03-19] MEDS: ENOXAPARIN 40 MG/0.4 ML (LOVENOX) SYR SC SCH (12:29)
--- NOTE | 2021-03-19 13:13 | Tele-ICU Consult ---
Progress Note 55 y/o male admitted with Covid PNA on 03/17 Now transferred to the ICU for closer monitoring and worsening hypoxemia and worsening cxr PLAN: high flow nasal canula or BIPAP as needed Intubation if necessary. DVT prophylaxis with lovenox Focused Exam Height, Weight, BMI Height: 5'7.00" Weight: 195lbs. 0.0oz. 88.986677yt; 32.80 BMI Method:Stated LIZBETH GALLEGOS MD Mar 19, 2021 13:13
[2021-03-19] MEDS: cefTRIAXone 1,000 MG in WATER (STERILE) FOR INJECTION 10 ML IV SCH (14:28)
[2021-03-19] MEDS: DexMEDEtomidine 250 ML DRIP 250 ML IV SCH (14:29)
[2021-03-19 15:52] LABS: ABG BASE EXCESS 1.2 MMOL/L (-2.5-2.5); ABG OXYGEN SATURATION 91 % (94-100); ABG PCO2 39 MMHG (35-45); ABG PH 7.42 (7.37-7.43); ABG PO2 57 MMHG (79-93); ABG TCO2 26.6 MMOL/L (21.0-31.0)
[2021-03-19 15:53] LABS: ALLENS TEST YES-POS
[2021-03-19 15:54] LABS: INSPIRED O2 100; PATIENT TEMP 36; VENTILATOR NO
[2021-03-20] VITALS (30 sets, daily range): BP systolic 118–161; BP diastolic 42–136
[2021-03-20] MEDS: NS IV 1000 ML 1,000 ML IV SCH ×2 (01:26→18:08)
[2021-03-20] MEDS: DexMEDEtomidine 250 ML DRIP 250 ML IV SCH ×2 (01:26→14:24)
[2021-03-20] MEDS: RT-ALBUTEROL INHALER HFA (VENTOLIN HFA) 18 GM IH SCH ×6 (02:07→22:19)
[2021-03-20 03:45] LABS: CHLORIDE 108 MMOL/L (98-107); POTASSIUM 4.6 MMOL/L (3.6-5.0); SODIUM 141 MMOL/L (135-145)
[2021-03-20 03:47] LABS: GLUCOSE 153 MG/DL (70-105)
[2021-03-20 03:48] LABS: CARBON DIOXIDE 21 MMOL/L (21-32)
[2021-03-20 03:50] LABS: PHOSPHORUS 3.2 MG/DL (2.3-4.7)
[2021-03-20 03:51] LABS: CREATININE SERUM 0.84 MG/DL (0.60-1.30); GFR ESTIMATED > 60
[2021-03-20 03:52] LABS: BUN/CREATININE RATIO 18
[2021-03-20 03:53] LABS: MAGNESIUM 2.6 MG/DL (1.6-2.4)
[2021-03-20] MEDS: KCL 20 MEQ TAB (K-DUR) PO SCH (04:26)
[2021-03-20] MEDS: POTASSIUM CL 10MEQ/50ML IVPB 50 ML IV SCH (04:26)
[2021-03-20] MEDS: MAGNESIUM 1 GM/100 ML IVPB 100 ML IV SCH (04:26)
[2021-03-20 04:29] LABS: BASOPHILS % (AUTO) 0 % (0-10); EOSINOPHILS % (AUTO) 0 % (0-10); HEMATOCRIT 42 % (40-54); HEMOGLOBIN 13.9 g/dL (13.3-17.7); LYMPHOCYTES # (AUTO) 0.5 10^3/uL (1.0-4.0); LYMPHOCYTES % (AUTO) 4 % (12-44); MEAN CORPUSCULAR HEMOGLOBIN 30 pg (25-34); MEAN CORPUSCULAR HGB CONC 33 g/dL (32-36); MEAN CORPUSCULAR VOLUME 92 fL (80-99); MONOCYTES # (AUTO) 0.4 10^3/uL (0.0-1.0); MONOCYTES % (AUTO) 4 % (0-12); NEUTROPHILS # (AUTO) 10.8 10^3/uL (1.8-7.8); NEUTROPHILS % (AUTO) 91 % (42-75); PLATELET COUNT 186 10^3/uL (130-400); WHITE BLOOD COUNT 11.9 10^3/uL (4.3-11.0)
[2021-03-20] MEDS ORDERED: POTASSIUM CL 10MEQ/50ML IVPB 50 ML IV SCH (06:00)
[2021-03-20] MEDS ORDERED: KCL 20 MEQ TAB (K-DUR) PO SCH (06:00)
[2021-03-20] MEDS ORDERED: MAGNESIUM 1 GM/100 ML IVPB 100 ML IV SCH (06:00)
[2021-03-20] MEDS: PANTOPRAZOLE 40 MG (PROTONIX) VIAL IV SCH (08:12)
[2021-03-20] MEDS: FLUTICASONE NASAL SPRAY (FLONASE) 16 GM BTL NS SCH (08:12)
[2021-03-20] MEDS: AZITHROMYCIN 250 MG TAB (ZITHROMAX) PO SCH (08:12)
[2021-03-20] MEDS ORDERED: NS IV 500 ML 500 ML ONE (08:26)
[2021-03-20] MEDS: LORazepam 1 MG (ATIVAN) TAB PO PRN (09:14)
--- NOTE | 2021-03-20 09:44 | Tele-ICU Progress Note ---
Subjective Date Seen by a Provider: Mar 20, 2021 Time Seen by a Provider: 09:45 Subjective/Events-last exam Rounded virtually with JOSE LUIS Riojas. Patient stable overnight on BiPAP with FiO2 decreased cmkw792% to 90%. Sleeping comfortably on R side. VSS. Today's plan is to twean FiO2, cpm.. Review of Systems See freetext note Sepsis Event Evaluation Height, Weight, BMI Height: 5'7.00" Weight: 195lbs. 0.0oz. 88.507970bo; 32.80 BMI Method:Stated Focused Exam Sepsis Stage: Ruled Out Lactic Acid Level See freetext note Exam Exam Patient acknowledged, consented, and participated in this virtual visit which was conducted using real time audio/video Vital Signs Date Time Temp Pulse Resp B/P (MAP) Pulse Ox O2 Delivery O2 Flow Rate FiO2 03/20/21 09:06 37.0 03/20/21 08:00 66 26 123/42 (69) 87 NIV Bilevel 90.00 03/20/21 08:00 96 NIV Bilevel 90 03/20/21 07:40 37.0 03/20/21 07:00 65 27 124/85 (98) 88 NIV Bilevel 90.00 03/20/21 07:00 64 03/20/21 06:44 61 25 92 90.00 03/20/21 06:00 65 9 128/85 (99) 93 NIV Bilevel 90.00 03/20/21 05:00 57 22 126/100 (109) 88 NIV Bilevel 90.00 03/20/21 04:00 96 NIV Bilevel 90 03/20/21 04:00 66 9 118/89 (99) 90 NIV Bilevel 90.00 03/20/21 03:00 63 132/100 (111) 96 NIV Bilevel 90.00 03/20/21 02:07 56 45 95 90.00 03/20/21 02:00 56 123/94 (104) 98 NIV Bilevel 90.00 03/20/21 01:28 NIV Bilevel 90.00 03/20/21 01:26 57 121/88 03/20/21 01:00 56 44 121/88 (99) 92 NIV Bilevel 100.00 03/20/21 01:00 56 03/20/21 00:00 59 26 120/84 (96) 89 NIV Bilevel 100.00 03/19/21 23:16 36.7 NIV Bilevel 100.00 03/19/21 23:15 92 NIV Bilevel 100 03/19/21 23:00 59 41 121/82 (95) 90 NIV Bilevel 100.00 03/19/21 22:00 58 40 119/82 (94) 91 NIV Bilevel 100.00 03/19/21 21:59 60 45 92 100.00 03/19/21 21:00 59 43 118/83 (95) 91 NIV Bilevel 100.00 03/19/21 20:00 61 39 119/78 (92) 89 NIV Bilevel 100.00 03/19/21 19:20 36.5 03/19/21 19:15 85 NIV Bilevel 100 03/19/21 19:00 61 44 120/77 (91) 86 NIV Bilevel 100.00 03/19/21 19:00 61 03/19/21 18:21 61 40 89 100.00 03/19/21 18:00 67 122/75 (91) 90 NIV Bilevel 100.00 03/19/21 17:00 68 11 120/75 (90) 91 NIV Bilevel 100.00 03/19/21 16:00 72 20 118/73 (88) 90 NIV Bilevel 100.00 03/19/21 16:00 95 NIV Bilevel 100 03/19/21 15:45 74 42 87 100.00 03/19/21 15:40 37.0 03/19/21 15:00 92 129/64 (85) 92 NIV Bilevel 80.00 03/19/21 14:29 90 125/98 03/19/21 14:00 95 15 162/95 (117) 98 NIV Bilevel 80.00 03/19/21 13:00 92 31 160/94 (116) 95 NIV Bilevel 80.00 03/19/21 12:52 98 03/19/21 12:00 91 NIV Bilevel 100 03/19/21 12:00 92 25 120/77 (91) 95 NIV Bilevel 80.00 03/19/21 11:17 99 49 89 80.00 I & O 03/20/21 07:00 Intake Total 1300 ml Output Total 1825 ml Balance -525 ml Height & Weight Height: 5'7.00" Weight: 195lbs. 0.0oz. 88.348982oo; 32.80 BMI Method:Stated General Appearance: Mild Distress HEENT: PERRL/EOMI Neck: Supple Respiratory: Crackles, Decreased Breath Sounds, Respiratory Distress Cardiovascular: Regular Rate, Rhythm Gastrointestinal: normal bowel sounds, non tender, soft Extremity: Non Tender, No Calf Tenderness Neurologic/Psychiatric: Alert, Oriented x3 Skin: Warm/Dry Other comments See freetext note Results Lab Laboratory Tests 03/19/21 06:11 03/20/21 03:05 03/20/21 03:15 Procedures See freetext note Assessment/Plan Assessment/Plan See freetext note Critical Care: Ventilator Management Time spent with patient (mins): 20 Advance Care discuss with: patient Time spent on discussion(mins): 15 ELIOT IVORY MD Mar 20, 2021 09:44
--- NOTE | 2021-03-20 12:53 | Progress Note ---
Subjective Subjective Date Seen by Provider: Mar 20, 2021 Time Seen by Provider: 12:30 Patient laying on right side in ICU. Transferred to ICU yesterday. He is doing a little better. He denies being fatigued from working to breath. Mood is decent. Wanting to get better. Wonders what else he needs to do. -Coughing more. Review of Systems General: No Chills, No Night Sweats HEENT: No Head Aches Pulmonary: No Dyspnea, No Cough Cardiovascular: No: Chest Pain, Palpitations Gastrointestinal: No: Nausea, Vomiting, Abdominal Pain Genitourinary: No Dysuria Neurological: Weakness Objective Exam Vital Signs Vital Signs Date Time Temp Pulse Resp B/P (MAP) Pulse Ox O2 Delivery O2 Flow Rate FiO2 03/20/21 12:00 82 23 161/122 (135) 92 NIV Bilevel 90.00 03/20/21 11:37 36.7 03/20/21 11:00 71 25 161/110 (127) 90 NIV Bilevel 90.00 03/20/21 10:39 79 31 91 90.00 03/20/21 10:00 79 25 136/102 (113) 92 NIV Bilevel 90.00 03/20/21 09:06 37.0 03/20/21 09:00 69 28 134/83 (100) 94 NIV Bilevel 90.00 03/20/21 08:00 66 26 123/42 (69) 87 NIV Bilevel 90.00 03/20/21 08:00 96 NIV Bilevel 90 03/20/21 07:40 37.0 03/20/21 07:00 65 27 124/85 (98) 88 NIV Bilevel 90.00 03/20/21 07:00 64 03/20/21 06:44 61 25 92 90.00 03/20/21 06:00 65 9 128/85 (99) 93 NIV Bilevel 90.00 03/20/21 05:00 57 22 126/100 (109) 88 NIV Bilevel 90.00 03/20/21 04:00 96 NIV Bilevel 90 03/20/21 04:00 66 9 118/89 (99) 90 NIV Bilevel 90.00 03/20/21 03:00 63 132/100 (111) 96 NIV Bilevel 90.00 03/20/21 02:07 56 45 95 90.00 03/20/21 02:00 56 123/94 (104) 98 NIV Bilevel 90.00 03/20/21 01:28 NIV Bilevel 90.00 03/20/21 01:26 57 121/88 03/20/21 01:00 56 44 121/88 (99) 92 NIV Bilevel 100.00 03/20/21 01:00 56 03/20/21 00:00 59 26 120/84 (96) 89 NIV Bilevel 100.00 03/19/21 23:16 36.7 NIV Bilevel 100.00 03/19/21 23:15 92 NIV Bilevel 100 03/19/21 23:00 59 41 121/82 (95) 90 NIV Bilevel 100.00 03/19/21 22:00 58 40 119/82 (94) 91 NIV Bilevel 100.00 03/19/21 21:59 60 45 92 100.00 03/19/21 21:00 59 43 118/83 (95) 91 NIV Bilevel 100.00 03/19/21 20:00 61 39 119/78 (92) 89 NIV Bilevel 100.00 03/19/21 19:20 36.5 03/19/21 19:15 85 NIV Bilevel 100 03/19/21 19:00 61 44 120/77 (91) 86 NIV Bilevel 100.00 03/19/21 19:00 61 03/19/21 18:21 61 40 89 100.00 03/19/21 18:00 67 122/75 (91) 90 NIV Bilevel 100.00 03/19/21 17:00 68 11 120/75 (90) 91 NIV Bilevel 100.00 03/19/21 16:00 72 20 118/73 (88) 90 NIV Bilevel 100.00 03/19/21 16:00 95 NIV Bilevel 100 03/19/21 15:45 74 42 87 100.00 03/19/21 15:40 37.0 03/19/21 15:00 92 129/64 (85) 92 NIV Bilevel 80.00 03/19/21 14:29 90 125/98 03/19/21 14:00 95 15 162/95 (117) 98 NIV Bilevel 80.00 03/19/21 13:00 92 31 160/94 (116) 95 NIV Bilevel 80.00 03/19/21 12:52 98 I & O 03/20/21 07:00 Intake Total 1300 ml Output Total 1825 ml Balance -525 ml General Appearance: Mild Distress HEENT: PERRL/EOMI Neck: Supple Respiratory: Crackles, Decreased Breath Sounds (bases), Respiratory Distress (tachypneic) Cardiovascular: Regular Rate, Rhythm Gastrointestinal: Normal Bowel Sounds, Non Tender, Soft Rectal: Deferred Back: No CVA Tenderness Extremity: Non Tender, No Calf Tenderness Neurologic/Psychiatric: Alert, Oriented x3 Skin: Warm/Dry Results Lab Laboratory Tests 03/19/21 15:42: Blood Gas Puncture Site 1 Radial, Blood Gas Patient Temperature 36, Arterial Blood pH 7.42, Arterial Blood Partial Pressure CO2 39, Arterial Blood Partial Pressure O2 57L, Arterial Blood HCO3 25, Arterial Blood Total CO2 26.6, Arterial Blood Oxygen Saturation 91L, Arterial Blood Base Excess 1.2, Nikita Test YES-POS, Blood Gas Ventilator Setting NO, Blood Gas Inspired Oxygen 100 03/20/21 03:05: White Blood Count 11.9H, Red Blood Count 4.59, Hemoglobin 13.9, Hematocrit 42, Mean Corpuscular Volume 92, Mean Corpuscular Hemoglobin 30, Mean Corpuscular Hemoglobin Concent 33, Red Cell Distribution Width 12.5, Platelet Count 186, Mean Platelet Volume 11.0, Immature Granulocyte % (Auto) 1, Neutrophils (%) (Auto) 91H, Lymphocytes (%) (Auto) 4L, Monocytes (%) (Auto) 4, Eosinophils (%) (Auto) 0, Basophils (%) (Auto) 0, Neutrophils # (Auto) 10.8H, Lymphocytes # (Auto) 0.5L, Monocytes # (Auto) 0.4, Eosinophils # (Auto) 0.0, Basophils # (Auto) 0.0, Immature Granulocyte # (Auto) 0.1 03/20/21 03:15: Sodium Level 141, Potassium Level 4.6, Chloride Level 108H, Carbon Dioxide Level 21, Anion Gap 12, Blood Urea Nitrogen 15, Creatinine 0.84, Estimat Glomerular Filtration Rate > 60, BUN/Creatinine Ratio 18, Glucose Level 153H, Calcium Level 8.0L, Phosphorus Level 3.2, Magnesium Level 2.6H Assessment/Plan Assessment/Plan Assessment and Plan 03/19/21- transferred to ICU for closer monitoring and eICU consult. Continue dexamethasone IV, azithromycin, rocephin. Monitor labs. On IVF while on BiPAP. repeat labs and CXR in AM. 03/20/21- continue respiratory support- BiPAP- is getting plasma today. WBC elevated. Na level has corrected with IVF. Continue lovenox for DVT ppx. Dr. Bowling will be back tomorrow. Dispo: prognosis: guarded. Problems: (1) Acute respiratory failure with hypoxia (2) COVID-19 ELIZABETH MTZ MD Mar 20, 2021 12:53
[2021-03-20] MEDS: cefTRIAXone 1,000 MG in WATER (STERILE) FOR INJECTION 10 ML IV SCH (14:05)
[2021-03-20] MEDS: ENOXAPARIN 40 MG/0.4 ML (LOVENOX) SYR SC SCH (14:06)
[2021-03-20] MEDS ORDERED: LORazepam INJ 2 MG/ML (ATIVAN) VIAL IVP PRN (14:15)
[2021-03-20] MEDS ORDERED: PROPOFOL DRIP (ICU) 100 ML IV ONE (14:34)
--- NOTE | 2021-03-20 14:52 | Tele-ICU Progress Note ---
Subjective Date Seen by a Provider: Mar 20, 2021 Time Seen by a Provider: 14:51 Subjective/Events-last exam Worsening gresp status and pt to be intubated. Settings, restraints and Propofol ordered Review of Systems See freetext note Sepsis Event Evaluation Sepsis Stage: Ruled Out Height, Weight, BMI Height: 5'7.00" Weight: 195lbs. 0.0oz. 88.825520tg; 32.80 BMI Method:Stated Bedside Monitoring CVP Measures: 8-12 ScvO2 measures: Less than 70% Bedside Ultrasound Performed: No Passive Leg Raise/Fluid Bolus: Fluid Responsive Focused Exam Sepsis Stage: Ruled Out Possible Source: Other Lactate Level see freetext noted Respiratory: Lungs Clear Cardiovascular: No Edema Peripheral Pulses: 2+ Dorsalis Pedis (R), 2+ Radial Pulses (R) Skin: normal color Lactic Acid Level 2.0 Within 3hrs of presentation: Admin fluids, Admin 30ml/kg IBW due to BMI>30, Admin ABX, Blood cultures prior to ABX's, Focus exam, Lactate level Exam Exam Patient acknowledged, consented, and participated in this virtual visit which was conducted using real time audio/video Vital Signs Date Time Temp Pulse Resp B/P (MAP) Pulse Ox O2 Delivery O2 Flow Rate FiO2 03/20/21 14:24 78 136/72 03/20/21 14:08 100.00 03/20/21 14:00 80 26 136/72 (93) 89 NIV Bilevel 90.00 03/20/21 13:00 78 26 145/90 (108) 91 NIV Bilevel 90.00 03/20/21 12:54 81 03/20/21 12:00 82 23 161/122 (135) 92 NIV Bilevel 90.00 03/20/21 12:00 96 NIV Bilevel 90 03/20/21 11:37 36.7 03/20/21 11:00 71 25 161/110 (127) 90 NIV Bilevel 90.00 03/20/21 10:39 79 31 91 90.00 03/20/21 10:00 79 25 136/102 (113) 92 NIV Bilevel 90.00 03/20/21 09:06 37.0 03/20/21 09:00 69 28 134/83 (100) 94 NIV Bilevel 90.00 03/20/21 08:00 66 26 123/42 (69) 87 NIV Bilevel 90.00 03/20/21 08:00 96 NIV Bilevel 90 03/20/21 07:40 37.0 03/20/21 07:00 65 27 124/85 (98) 88 NIV Bilevel 90.00 03/20/21 07:00 64 03/20/21 06:44 61 25 92 90.00 03/20/21 06:00 65 9 128/85 (99) 93 NIV Bilevel 90.00 03/20/21 05:00 57 22 126/100 (109) 88 NIV Bilevel 90.00 03/20/21 04:00 96 NIV Bilevel 90 03/20/21 04:00 66 9 118/89 (99) 90 NIV Bilevel 90.00 03/20/21 03:00 63 132/100 (111) 96 NIV Bilevel 90.00 03/20/21 02:07 56 45 95 90.00 03/20/21 02:00 56 123/94 (104) 98 NIV Bilevel 90.00 03/20/21 01:28 NIV Bilevel 90.00 03/20/21 01:26 57 121/88 03/20/21 01:00 56 44 121/88 (99) 92 NIV Bilevel 100.00 03/20/21 01:00 56 03/20/21 00:00 59 26 120/84 (96) 89 NIV Bilevel 100.00 03/19/21 23:16 36.7 NIV Bilevel 100.00 03/19/21 23:15 92 NIV Bilevel 100 03/19/21 23:00 59 41 121/82 (95) 90 NIV Bilevel 100.00 03/19/21 22:00 58 40 119/82 (94) 91 NIV Bilevel 100.00 03/19/21 21:59 60 45 92 100.00 03/19/21 21:00 59 43 118/83 (95) 91 NIV Bilevel 100.00 03/19/21 20:00 61 39 119/78 (92) 89 NIV Bilevel 100.00 03/19/21 19:20 36.5 03/19/21 19:15 85 NIV Bilevel 100 03/19/21 19:00 61 44 120/77 (91) 86 NIV Bilevel 100.00 03/19/21 19:00 61 6/26/21 18:21 61 40 89 100.00 03/19/21 18:00 67 122/75 (91) 90 NIV Bilevel 100.00 03/19/21 17:00 68 11 120/75 (90) 91 NIV Bilevel 100.00 03/19/21 16:00 72 20 118/73 (88) 90 NIV Bilevel 100.00 03/19/21 16:00 95 NIV Bilevel 100 03/19/21 15:45 74 42 87 100.00 03/19/21 15:40 37.0 03/19/21 15:00 92 129/64 (85) 92 NIV Bilevel 80.00 I & O 03/20/21 07:00 Intake Total 1300 ml Output Total 1825 ml Balance -525 ml Height & Weight Height: 5'7.00" Weight: 195lbs. 0.0oz. 88.506225bq; 32.80 BMI Method:Stated General Appearance: Mild Distress HEENT: PERRL/EOMI Neck: Supple Respiratory: Crackles, Decreased Breath Sounds, Respiratory Distress Cardiovascular: Regular Rate, Rhythm Gastrointestinal: normal bowel sounds, non tender, soft Extremity: Non Tender, No Calf Tenderness Neurologic/Psychiatric: Alert, Oriented x3 Skin: Warm/Dry Results Lab Laboratory Tests 03/19/21 06:11 03/20/21 03:05 03/20/21 03:15 Assessment/Plan Assessment/Plan See freetext note Critical Care: Ventilator Management Time spent with patient (mins): 20 Time spent on discussion(mins): 15 Diagnosis/Problems Diagnosis/Problems (1) Acute respiratory failure with hypoxia Status: Acute Assessment & Plan: See freetext note (2) COVID-19 Status: Acute ELIOT IVORY MD Mar 20, 2021 14:52
[2021-03-20] MEDS: PROPOFOL DRIP (ICU) 100 ML IV SCH ×4 (15:30→23:45)
--- NOTE | 2021-03-20 15:56 | Progress Note ---
Progress Note Assessment/Plan Date Seen by Provider: Mar 20, 2021 Time Seen by Provider: 15:20 Events since last exam Procedure note: Was called to ICU by medical housekeeper to intubate this Covid positive gentleman who was failing BiPAP treatment. On arrival oxygen saturation was in the 80% range on BiPAP. He was alert. Gave him 20 mg of etomidate and 50 mg of rocuronium. Was then able to intubate with a size 8 endotracheal tube 23 cm at the teeth with bilateral breath sounds though diminished. A Peep valve was attached to the end of the ET tube and he was bagged up to a maximum of 87%. Then proceeded with central line placement due to poor IV access. Was going to attempt right internal jugular placement however upon laying him flat his oxygen saturation declined down into the upper sixties. So we elevated head of his bed again and his sats claudia. As such decided to use the right femoral vein as site of line placement. Area was cleansed with chlorhexidine swab then under sterile technique the vein was accessed, guidewire was inserted into the vein, central line placed over the guidewire and advanced all the way to the hub as this was only a 16 cm triple- lumen. Ultrasound guidance was used. Line was sutured in place. Assessment/Plan 03/19/21- transferred to ICU for closer monitoring and eICU consult. Continue dexamethasone IV, azithromycin, rocephin. Monitor labs. On IVF while on BiPAP. repeat labs and CXR in AM. 03/20/21- continue respiratory support- BiPAP- is getting plasma today. WBC elevated. Na level has corrected with IVF. Continue lovenox for DVT ppx. Dr. Bowling will be back tomorrow. Dispo: prognosis: guarded. Vitals Last set of Vitals Signs Vital Signs Date Time Temp Pulse Resp B/P (MAP) Pulse Ox O2 Delivery O2 Flow Rate FiO2 03/20/21 15:12 77 60 87 100.00 03/20/21 15:00 135/85 (102) NIV Bilevel 03/20/21 12:00 90 03/20/21 11:37 36.7 I&O I&O Intake and Output 03/20/21 00:00 Intake Total 400 ml Output Total 1875 ml Balance -1475 ml Intake Oral 400 ml Output Urine Total 1875 ml # Voids 3 Labs Laboratory Tests 03/20/21 03:05: White Blood Count 11.9H, Red Blood Count 4.59, Hemoglobin 13.9, Hematocrit 42, Mean Corpuscular Volume 92, Mean Corpuscular Hemoglobin 30, Mean Corpuscular H emoglobin Concent 33, Red Cell Distribution Width 12.5, Platelet Count 186, Mean Platelet Volume 11.0, Immature Granulocyte % (Auto) 1, Neutrophils (%) (Auto) 91H, Lymphocytes (%) (Auto) 4L, Monocytes (%) (Auto) 4, Eosinophils (%) (Auto) 0, Basophils (%) (Auto) 0, Neutrophils # (Auto) 10.8H, Lymphocytes # (Auto) 0.5L , Monocytes # (Auto) 0.4, Eosinophils # (Auto) 0.0, Basophils # (Auto) 0.0, Immature Granulocyte # (Auto) 0.1 03/20/21 03:15: Sodium Level 141, Potassium Level 4.6, Chloride Level 108H, Carbon Dioxide Level 21, Anion Gap 12, Blood Urea Nitrogen 15, Creatinine 0.84, Estimat Glomerular Filtration Rate > 60, BUN/Creatinine Ratio 18, Glucose Level 153H, Calcium Level 8.0L, Phosphorus Level 3.2, Magnesium Level 2.6H VALERIE [employer] Mar 20, 2021 15:56
--- NOTE | 2021-03-20 16:09 | Diagnostic Imaging Report ---
EXAMINATION: Chest 1 view HISTORY: Covid positive, intubation COMPARISON: 03/18/2021 FINDINGS: Heart size and pulmonary vasculature are stable. There is been interval placement of an endotracheal tube approximately 5 cm above the patricia. Enteric catheter is present. There are increasing patchy airspace opacities throughout both lungs compared to 03/18/2021. No pleural effusion or pneumothorax. Degenerative changes of the thoracic spine. Osseous structures are otherwise intact. IMPRESSION: 1. Increasing patchy opacities throughout both lungs compatible with worsening Covid 19 pneumonia. 2. Endotracheal tube approximately 5 cm above the patricia. Dictated by: Dictated on workstation # [id number]
[2021-03-20] MEDS ORDERED: ROCURONIUM 10 MG/ML 5 ML SYRINGE IV ONE (16:13)
--- NOTE | 2021-03-20 16:19 | Tele-ICU Progress Note ---
Subjective Date Seen by a Provider: Mar 20, 2021 Time Seen by a Provider: 16:18 Subjective/Events-last exam PRN IV Ativan added. Review of Systems General: Other HEENT: Other Pulmonary: Other Cardiovascular: Other Gastrointestinal: Other See progress note Sepsis Event Evaluation Sepsis Stage: Ruled Out Reason for ruling out sepsis: No evidence Height, Weight, BMI Height: 5'7.00" Weight: 195lbs. 0.0oz. 88.764859ft; 32.80 BMI Method:Stated Bedside Monitoring CVP Measures: 8-12 ScvO2 measures: Less than 70% Bedside Ultrasound Performed: No Passive Leg Raise/Fluid Bolus: Fluid Responsive Focused Exam Respiratory: Lungs Clear Cardiovascular: No Edema, No Gallop Peripheral Pulses: 2+ Dorsalis Pedis (R), 2+ Left Dors-Pedis (L) Skin: normal color Within 3hrs of presentation: Admin fluids, Admin 30ml/kg IBW due to BMI>30, Admin ABX, Blood cultures prior to ABX's, Focus exam, Lactate level, Vasopressin therapy Exam Exam Patient acknowledged, consented, and participated in this virtual visit which was conducted using real time audio/video Vital Signs Date Time Temp Pulse Resp B/P (MAP) Pulse Ox O2 Delivery O2 Flow Rate FiO2 03/20/21 16:00 74 31 139/109 (119) 9 Mechanical Ventilator 100.00 03/20/21 15:12 77 60 87 100.00 03/20/21 15:00 74 31 135/85 (102) 90 NIV Bilevel 100.00 03/20/21 14:24 78 136/72 03/20/21 14:08 100.00 03/20/21 14:00 80 26 136/72 (93) 89 NIV Bilevel 90.00 03/20/21 13:00 78 26 145/90 (108) 91 NIV Bilevel 90.00 03/20/21 12:54 81 03/20/21 12:00 82 23 161/122 (135) 92 NIV Bilevel 90.00 03/20/21 12:00 96 NIV Bilevel 90 03/20/21 11:37 36.7 03/20/21 11:00 71 25 161/110 (127) 90 NIV Bilevel 90.00 03/20/21 10:39 79 31 91 90.00 03/20/21 10:00 79 25 136/102 (113) 92 NIV Bilevel 90.00 03/20/21 09:06 37.0 03/20/21 09:00 69 28 134/83 (100) 94 NIV Bilevel 90.00 03/20/21 08:00 66 26 123/42 (69) 87 NIV Bilevel 90.00 03/20/21 08:00 96 NIV Bilevel 90 03/20/21 07:40 37.0 03/20/21 07:00 65 27 124/85 (98) 88 NIV Bilevel 90.00 03/20/21 07:00 64 03/20/21 06:44 61 25 92 90.00 03/20/21 06:00 65 9 128/85 (99) 93 NIV Bilevel 90.00 03/20/21 05:00 57 22 126/100 (109) 88 NIV Bilevel 90.00 03/20/21 04:00 96 NIV Bilevel 90 03/20/21 04:00 66 9 118/89 (99) 90 NIV Bilevel 90.00 03/20/21 03:00 63 132/100 (111) 96 NIV Bilevel 90.00 03/20/21 02:07 56 45 95 90.00 03/20/21 02:00 56 123/94 (104) 98 NIV Bilevel 90.00 03/20/21 01:28 NIV Bilevel 90.00 03/20/21 01:26 57 121/88 03/20/21 01:00 56 44 121/88 (99) 92 NIV Bilevel 100.00 03/20/21 01:00 56 03/20/21 00:00 59 26 120/84 (96) 89 NIV Bilevel 100.00 03/19/21 23:16 36.7 NIV Bilevel 100.00 03/19/21 23:15 92 NIV Bilevel 100 03/19/21 23:00 59 41 121/82 (95) 90 NIV Bilevel 100.00 03/19/21 22:00 58 40 119/82 (94) 91 NIV Bilevel 100.00 03/19/21 21:59 60 45 92 100.00 03/19/21 21:00 59 43 118/83 (95) 91 NIV Bilevel 100.00 03/19/21 20:00 61 39 119/78 (92) 89 NIV Bilevel 100.00 03/19/21 19:20 36.5 03/19/21 19:15 85 NIV Bilevel 100 03/19/21 19:00 61 44 120/77 (91) 86 NIV Bilevel 100.00 03/19/21 19:00 61 03/19/21 18:21 61 40 89 100.00 03/19/21 18:00 67 122/75 (91) 90 NIV Bilevel 100.00 03/19/21 17:00 68 11 120/75 (90) 91 NIV Bilevel 100.00 I & O 03/20/21 07:00 Intake Total 1300 ml Output Total 1825 ml Balance -525 ml Height & Weight Height: 5'7.00" Weight: 195lbs. 0.0oz. 88.746612yf; 32.80 BMI Method:Stated General Appearance: Mild Distress HEENT: PERRL/EOMI Neck: Supple Respiratory: Crackles, Decreased Breath Sounds, Respiratory Distress Cardiovascular: Regular Rate, Rhythm Peripheral Pulses: 2+ Dorsalis Pedis (R), 2+ Left Dors-Pedis (L) Gastrointestinal: normal bowel sounds, non tender, soft Extremity: Non Tender, No Calf Tenderness Neurologic/Psychiatric: Alert, Oriented x3 Skin: Warm/Dry Results Lab Laboratory Tests 03/19/21 06:11 03/20/21 03:05 03/20/21 03:15 Assessment/Plan Assessment/Plan See freetext note Critical Care: Ventilator Management Time spent with patient (mins): 15 Advance Care discuss with: family member (s) Advance Care Discussion: initiate discussion Time spent on discussion(mins): 15 Diagnosis/Problems Diagnosis/Problems (1) Acute respiratory failure with hypoxia Status: Acute (2) COVID-19 Status: Acute (3) Hypoxia Status: Acute ELIOT IVORY MD Mar 20, 2021 16:18
[2021-03-20] MEDS: LORazepam INJ 2 MG/ML (ATIVAN) VIAL IVP PRN (16:23)
[2021-03-20] MEDS: inSUlin ASPART (NovoLOG) 1 UNIT/0.01 ML (CHARGE PER UNIT) SC SCH (23:45)
[2021-03-21] VITALS (32 sets, daily range): BP systolic 125–159; BP diastolic 77–101
[2021-03-21] MEDS: RT-ALBUTEROL INHALER HFA (VENTOLIN HFA) 18 GM IH SCH ×6 (02:09→23:00)
[2021-03-21 03:39] LABS: BASOPHILS % (AUTO) 0 % (0-10); EOSINOPHILS % (AUTO) 0 % (0-10); HEMATOCRIT 41 % (40-54); HEMOGLOBIN 13.2 g/dL (13.3-17.7); LYMPHOCYTES # (AUTO) 0.3 10^3/uL (1.0-4.0); LYMPHOCYTES % (AUTO) 3 % (12-44); MEAN CORPUSCULAR HEMOGLOBIN 30 pg (25-34); MEAN CORPUSCULAR HGB CONC 33 g/dL (32-36); MEAN CORPUSCULAR VOLUME 92 fL (80-99); MEAN PLATELET VOLUME 10.4 fL (9.0-12.2); MONOCYTES # (AUTO) 0.3 10^3/uL (0.0-1.0); MONOCYTES % (AUTO) 2 % (0-12); NEUTROPHILS # (AUTO) 11.3 10^3/uL (1.8-7.8); NEUTROPHILS % (AUTO) 93 % (42-75); PLATELET COUNT 191 10^3/uL (130-400); WHITE BLOOD COUNT 12.2 10^3/uL (4.3-11.0)
[2021-03-21 03:42] LABS: ABG BASE EXCESS 0.9 MMOL/L (-2.5-2.5); ABG OXYGEN SATURATION 98 % (94-100); ABG PCO2 36 MMHG (35-45); ABG PH 7.45 (7.37-7.43); ABG PO2 119 MMHG (79-93); ABG TCO2 25.8 MMOL/L (21.0-31.0); ALLENS TEST YES-POS; INSPIRED O2 70%; PATIENT TEMP 36.2; VENTILATOR YES
[2021-03-21 03:50] LABS: CHLORIDE 107 MMOL/L (98-107); SODIUM 142 MMOL/L (135-145)
[2021-03-21 03:51] LABS: CALCIUM 7.8 MG/DL (8.5-10.1)
[2021-03-21 03:52] LABS: GLUCOSE 175 MG/DL (70-105)
[2021-03-21 03:54] LABS: CARBON DIOXIDE 22 MMOL/L (21-32)
[2021-03-21 03:56] LABS: CREATININE SERUM 0.88 MG/DL (0.60-1.30); GFR ESTIMATED > 60; PHOSPHORUS 2.9 MG/DL (2.3-4.7)
[2021-03-21 03:57] LABS: BUN/CREATININE RATIO 22
[2021-03-21] MEDS: DexMEDEtomidine 250 ML DRIP 250 ML IV SCH ×2 (03:57→20:09)
[2021-03-21 03:58] LABS: MAGNESIUM 2.5 MG/DL (1.6-2.4)
[2021-03-21] MEDS: PROPOFOL DRIP (ICU) 100 ML IV SCH ×4 (03:58→20:10)
[2021-03-21] MEDS: POTASSIUM CL 10MEQ/50ML IVPB 50 ML IV SCH (05:08)
[2021-03-21] MEDS: inSUlin ASPART (NovoLOG) 1 UNIT/0.01 ML (CHARGE PER UNIT) SC SCH ×3 (05:09→18:15)
[2021-03-21] MEDS: MAGNESIUM 1 GM/100 ML IVPB 100 ML IV SCH (05:09)
[2021-03-21] MEDS: KCL 20 MEQ TAB (K-DUR) PO SCH (05:09)
[2021-03-21] MEDS: NS IV 1000 ML 1,000 ML IV SCH ×2 (06:22→20:09)
[2021-03-21] MEDS: PANTOPRAZOLE 40 MG (PROTONIX) VIAL IV SCH (08:15)
--- NOTE | 2021-03-21 08:26 | Diagnostic Imaging Report ---
Indication: Intubation and COVID 19 pneumonia. Time of exam: 2:53 AM Correlation is made with prior chest one day earlier. Support lines and catheters remain in place. Extensive bilateral airspace pulmonary infiltrates are noted. There has been some improvement in the degree of consolidation in both lungs when compared with yesterday. No effusion or pneumothorax is identified. Impression: Continued extensive bilateral pulmonary infiltrates, however, overall aeration has improved when compared with examination one day earlier. Dictated by: Dictated on workstation # [id number]
[2021-03-21] MEDS ORDERED: ROCURONIUM 10 MG/ML 5 ML SYRINGE IV ONE (08:48)
[2021-03-21] MEDS ORDERED: ETOMIDATE IV SOLN 20 MG/10 ML VIAL IV ONE (08:48)
[2021-03-21 10:26] LABS: BASOPHILS % (AUTO) 0 % (0-10); EOSINOPHILS % (AUTO) 0 % (0-10); HEMATOCRIT 39 % (40-54); HEMOGLOBIN 12.6 g/dL (13.3-17.7); LYMPHOCYTES # (AUTO) 0.2 10^3/uL (1.0-4.0); LYMPHOCYTES % (AUTO) 2 % (12-44); MEAN CORPUSCULAR HEMOGLOBIN 30 pg (25-34); MEAN CORPUSCULAR HGB CONC 33 g/dL (32-36); MEAN CORPUSCULAR VOLUME 94 fL (80-99); MEAN PLATELET VOLUME 10.1 fL (9.0-12.2); MONOCYTES # (AUTO) 0.4 10^3/uL (0.0-1.0); MONOCYTES % (AUTO) 3 % (0-12); NEUTROPHILS # (AUTO) 11.2 10^3/uL (1.8-7.8); NEUTROPHILS % (AUTO) 93 % (42-75); PLATELET COUNT 180 10^3/uL (130-400)
[2021-03-21 10:43] LABS: ALANINE AMINOTRANSFERASE 71 U/L (0-55); ALBUMIN 2.4 GM/DL (3.2-4.5); ALKALINE PHOSPHATASE 94 U/L (40-136); BILIRUBIN,TOTAL 1.4 MG/DL (0.1-1.0); BUN/CREATININE RATIO 20; CALCIUM 7.7 MG/DL (8.5-10.1); CARBON DIOXIDE 25 MMOL/L (21-32); CHLORIDE 108 MMOL/L (98-107); CREATININE SERUM 0.81 MG/DL (0.60-1.30); GFR ESTIMATED > 60; GLUCOSE 193 MG/DL (70-105); SODIUM 141 MMOL/L (135-145); TOTAL PROTEIN 5.3 GM/DL (6.4-8.2)
--- NOTE | 2021-03-21 11:33 | Tele-ICU Progress Note ---
Subjective Date Seen by a Provider: Mar 21, 2021 Time Seen by a Provider: 11:33 Sepsis Event Evaluation Height, Weight, BMI Height: 5'7.00" Weight: 195lbs. 0.0oz. 88.366003xs; 32.80 BMI Method:Stated Exam Exam Patient acknowledged, consented, and participated in this virtual visit which was conducted using real time audio/video Vital Signs Date Time Temp Pulse Resp B/P (MAP) Pulse Ox O2 Delivery O2 Flow Rate FiO2 03/21/21 11:08 60 30 94 80 03/21/21 11:00 56 30 137/79 (98) 94 Mechanical Ventilator 70.00 03/21/21 10:00 60 31 141/84 (103) 89 Mechanical Ventilator 70.00 03/21/21 09:00 68 22 142/84 (103) 93 Mechanical Ventilator 70.00 03/21/21 08:30 35.6 03/21/21 08:16 95 137/98 03/21/21 08:00 87 30 141/82 (101) 90 Mechanical Ventilator 70.00 03/21/21 08:00 95 Mechanical Ventilator 80 03/21/21 07:01 90 34 96 80 03/21/21 07:00 73 03/21/21 07:00 74 30 131/78 (95) 96 Mechanical Ventilator 70.00 03/21/21 06:00 60 27 125/83 (97) 92 Mechanical Ventilator 70.00 03/21/21 05:00 62 30 129/79 (96) 90 Mechanical Ventilator 70.00 03/21/21 04:00 36.2 03/21/21 04:00 64 31 128/78 (95) 94 Mechanical Ventilator 70.00 03/21/21 04:00 92 Mechanical Ventilator 80 03/21/21 03:58 64 125/79 03/21/21 03:57 64 125/79 03/21/21 03:55 64 30 92 80 03/21/21 03:45 68 30 125/79 (94) 96 Mechanical Ventilator 70.00 03/21/21 03:00 76 125/81 (96) 96 Mechanical Ventilator 80.00 03/21/21 02:15 70 141/79 (99) 97 Mechanical Ventilator 80.00 03/21/21 02:10 68 30 95 80 03/21/21 02:00 65 140/101 (114) 96 Mechanical Ventilator 80.00 03/21/21 01:00 64 135/80 (98) 96 Mechanical Ventilator 80.00 03/21/21 01:00 64 03/21/21 00:00 63 137/77 (97) 95 Mechanical Ventilator 80.00 03/20/21 23:45 136/78 03/20/21 23:39 36.6 03/20/21 23:39 96 Mechanical Ventilator 90 03/20/21 23:00 70 15 136/79 (98) 96 Mechanical Ventilator 80.00 03/20/21 22:30 Mechanical Ventilator 80.00 03/20/21 22:19 72 30 96 70 03/20/21 22:00 64 10 136/79 (98) 95 Mechanical Ventilator 85.00 03/20/21 21:00 63 138/79 (98) 96 Mechanical Ventilator 85.00 03/20/21 20:00 58 30 137/85 (102) 96 Mechanical Ventilator 85.00 03/20/21 19:59 58 30 96 Mechanical Ventilator 85.00 03/20/21 19:57 96 Mechanical Ventilator 90 03/20/21 19:45 37.2 03/20/21 19:00 Mechanical Ventilator 90.00 03/20/21 19:00 55 03/20/21 19:00 55 29 134/78 (96) 95 Mechanical Ventilator 90.00 03/20/21 18:23 54 30 95 90 03/20/21 18:08 52 134/83 03/20/21 18:07 51 134/83 03/20/21 18:00 51 13 136/84 (101) 96 Mechanical Ventilator 100.00 03/20/21 17:00 57 135/85 (102) 96 Mechanical Ventilator 100.00 03/20/21 16:00 74 31 139/109 (119) 95 Mechanical Ventilator 100.00 03/20/21 16:00 Mechanical Ventilator 100 03/20/21 15:19 55 30 96 100 03/20/21 15:12 77 60 87 100.00 03/20/21 15:00 74 31 135/85 (102) 90 NIV Bilevel 100.00 03/20/21 14:24 78 136/72 03/20/21 14:08 100.00 03/20/21 14:00 80 26 136/72 (93) 89 NIV Bilevel 90.00 03/20/21 13:00 78 26 145/90 (108) 91 NIV Bilevel 90.00 03/20/21 12:54 81 03/20/21 12:00 82 23 161/122 (135) 92 NIV Bilevel 90.00 03/20/21 12:00 96 NIV Bilevel 90 03/20/21 11:37 36.7 I & O 03/21/21 07:00 Intake Total 1550 ml Output Total 1360 ml Balance 190 ml Height & Weight Height: 5'7.00" Weight: 195lbs. 0.0oz. 88.454231uh; 32.80 BMI Method:Stated General Appearance: Mild Distress HEENT: PERRL/EOMI Neck: Supple Respiratory: Crackles, Decreased Breath Sounds, Respiratory Distress Cardiovascular: Regular Rate, Rhythm Gastrointestinal: normal bowel sounds, non tender, soft Extremity: Non Tender, No Calf Tenderness Neurologic/Psychiatric: Alert, Oriented x3 Skin: Warm/Dry Results Lab Laboratory Tests 03/20/21 03:05 03/20/21 03:15 03/21/21 03:36 03/21/21 10:00 Assessment/Plan Assessment/Plan (Tele-ICU Physician , Progress Note ) Available chart/ vitals / labs / Images reviewed Video assessment done using teleICU camera, rest of exam as per RN Discussed with RN. Events overnight: a fib run this am Afebrile, even VENT SETTINGS. rr 30 - 80 % peep 12 -500 ABG reviewed Sedation: RASS -3 Pressors: Drips: lr 75 precedex . propofol, precedex Consultants: Hospital course: (03/19) 55 Y admitted for Covid pneumonia/Respiratory fialure and hypoxia. Pt transferred from floor for worsening hypoxia on Bipap 100% RR 41 sats 89. (03/20) Intubated SBT vital /Cardiovascular Stability/Sedation Score/FI02/PEEP/ABG/CXR reviewed - not candidate A/P -Acute reps failur - , hypoxic , Covid PNA -cont full vent support -prone @10a Covid PNA - d dimer 1.25 03/17 ( No CT done - steroids - q1 leukocytosis - ? steroids - -ceftriaxon 03/17, Z-max 03/18 A fib - short run 03/21 - converted spontaneously - monitor , no asdditional w/up Lines : femoral 03/20 (Central Line Necessity Reviewed) Ghosh: 03/19 N/27 Analgesia: na Sedation: see HOB Elevation: confirmed Nutrition: start TF 03/21 VTE Prophylaxis: Lovenox 40 qd Stress Ulcer Prophylaxis: PPI Glycemic Control: + Plans in collaboration with bedside consultants and IM MDs. Discussed with RN to reach out if any questions or concerns A total of 37 minutes of critical care time was devoted to this patient today, required to treat and/or prevent further deterioration of critical care condition ( as above ) . ALVARO WHITESIDE MD Mar 21, 2021 11:33
[2021-03-21] MEDS: cefTRIAXone 1,000 MG in WATER (STERILE) FOR INJECTION 10 ML IV SCH (11:57)
[2021-03-21] MEDS: ENOXAPARIN 40 MG/0.4 ML (LOVENOX) SYR SC SCH (11:57)
[2021-03-21] MEDS: AZITHROMYCIN 250 MG TAB (ZITHROMAX) PO SCH (12:16)
--- NOTE | 2021-03-21 12:51 | Progress Note ---
Subjective Date Seen by a Provider: Mar 21, 2021 Time Seen by a Provider: 12:47 Subjective/Events-last exam Fwup COVID 19 Pneumonia/Respiratory Failure. Sedated on ventilator. Currently prone. Objective Exam Vital Signs Date Time Temp Pulse Resp B/P (MAP) Pulse Ox O2 Delivery O2 Flow Rate FiO2 03/21/21 12:07 56 03/21/21 12:00 57 29 137/86 (103) 97 Mechanical Ventilator 70.00 03/21/21 11:08 60 30 94 80 03/21/21 11:00 56 30 137/79 (98) 94 Mechanical Ventilator 70.00 03/21/21 10:00 60 31 141/84 (103) 89 Mechanical Ventilator 70.00 03/21/21 09:00 68 22 142/84 (103) 93 Mechanical Ventilator 70.00 03/21/21 08:30 35.6 03/21/21 08:16 95 137/98 03/21/21 08:00 87 30 141/82 (101) 90 Mechanical Ventilator 70.00 03/21/21 08:00 95 Mechanical Ventilator 80 03/21/21 07:01 90 34 96 80 03/21/21 07:00 73 03/21/21 07:00 74 30 131/78 (95) 96 Mechanical Ventilator 70.00 03/21/21 06:00 60 27 125/83 (97) 92 Mechanical Ventilator 70.00 03/21/21 05:00 62 30 129/79 (96) 90 Mechanical Ventilator 70.00 03/21/21 04:00 36.2 03/21/21 04:00 64 31 128/78 (95) 94 Mechanical Ventilator 70.00 03/21/21 04:00 92 Mechanical Ventilator 80 03/21/21 03:58 64 125/79 03/21/21 03:57 64 125/79 03/21/21 03:55 64 30 92 80 03/21/21 03:45 68 30 125/79 (94) 96 Mechanical Ventilator 70.00 03/21/21 03:00 76 125/81 (96) 96 Mechanical Ventilator 80.00 03/21/21 02:15 70 141/79 (99) 97 Mechanical Ventilator 80.00 03/21/21 02:10 68 30 95 80 03/21/21 02:00 65 140/101 (114) 96 Mechanical Ventilator 80.00 03/21/21 01:00 64 135/80 (98) 96 Mechanical Ventilator 80.00 03/21/21 01:00 64 03/21/21 00:00 63 137/77 (97) 95 Mechanical Ventilator 80.00 03/20/21 23:45 136/78 03/20/21 23:39 36.6 03/20/21 23:39 96 Mechanical Ventilator 90 03/20/21 23:00 70 15 136/79 (98) 96 Mechanical Ventilator 80.00 03/20/21 22:30 Mechanical Ventilator 80.00 03/20/21 22:19 72 30 96 70 03/20/21 22:00 64 10 136/79 (98) 95 Mechanical Ventilator 85.00 03/20/21 21:00 63 138/79 (98) 96 Mechanical Ventilator 85.00 03/20/21 20:00 58 30 137/85 (102) 96 Mechanical Ventilator 85.00 03/20/21 19:59 58 30 96 Mechanical Ventilator 85.00 03/20/21 19:57 96 Mechanical Ventilator 90 03/20/21 19:45 37.2 03/20/21 19:00 Mechanical Ventilator 90.00 03/20/21 19:00 55 03/20/21 19:00 55 29 134/78 (96) 95 Mechanical Ventilator 90.00 03/20/21 18:23 54 30 95 90 03/20/21 18:08 52 134/83 03/20/21 18:07 51 134/83 03/20/21 18:00 51 13 136/84 (101) 96 Mechanical Ventilator 100.00 03/20/21 17:00 57 135/85 (102) 96 Mechanical Ventilator 100.00 03/20/21 16:00 74 31 139/109 (119) 95 Mechanical Ventilator 100.00 03/20/21 16:00 Mechanical Ventilator 100 03/20/21 15:19 55 30 96 100 03/20/21 15:12 77 60 87 100.00 03/20/21 15:00 74 31 135/85 (102) 90 NIV Bilevel 100.00 03/20/21 14:24 78 136/72 03/20/21 14:08 100.00 03/20/21 14:00 80 26 136/72 (93) 89 NIV Bilevel 90.00 03/20/21 13:00 78 26 145/90 (108) 91 NIV Bilevel 90.00 03/20/21 12:54 81 I & O0 03/21/21 07:00 Intake Total 1550 ml Output Total 1360 ml Balance 190 ml Capillary Refill : General Appearance: Other (sedaed) Respiratory: Lungs Clear, Decreased Breath Sounds Cardiovascular: Regular Rate, Rhythm Extremity: No Pedal Edema Neurologic/Psychiatric: Other (sedated) Results Lab Laboratory Tests 03/20/21 23:35: Glucometer 182H 03/21/21 03:33: Blood Gas Puncture Site RIGHT RADIAL, Blood Gas Patient Temperature 36.2, Arterial Blood pH 7.45H, Arterial Blood Partial Pressure CO2 36, Arterial Blood Partial Pressure O2 119H, Arterial Blood HCO3 25, Arterial Blood Total CO2 25.8, Arterial Blood Oxygen Saturation 98, Arterial Blood Base Excess 0.9, Nikita Test YES-POS, Blood Gas Ventilator Setting YES, Blood Gas Inspired Oxygen 70% 03/21/21 03:36: White Blood Count 12.2H, Red Blood Count 4.39, Hemoglobin 13.2L, Hematocrit 41, Mean Corpuscular Volume 92, Mean Corpuscular Hemoglobin 30, Mean Corpuscular Hemoglobin Concent 33, Red Cell Distribution Width 12.4, Platelet Count 191, Mean Platelet Volume 10.4, Immature Granulocyte % (Auto) 2, Neutrophils (%) (Auto) 93H, Lymphocytes (%) (Auto) 3L, Monocytes (%) (Auto) 2, Eosinophils (%) (Auto) 0, Basophils (%) (Auto) 0, Neutrophils # (Auto) 11.3H, Lymphocytes # (Auto) 0.3L, Monocytes # (Auto) 0.3, Eosinophils # (Auto) 0.0, Basophils # (Auto) 0.0, Immature Granulocyte # (Auto) 0.2H, Sodium Level 142, Potassium Level 4.0, Chloride Level 107, Carbon Dioxide Level 22, Anion Gap 13, Blood Urea Nitrogen 19H, Creatinine 0.88, Estimat Glomerular Filtration Rate > 60, BUN /Creatinine Ratio 22, Glucose Level 175H, Calcium Level 7.8L, Phosphorus Level 2.9, Magnesium Level 2.5H 03/21/21 10:00: White Blood Count 12.0H, Red Blood Count 4.14L, Hemoglobin 12.6L, Hematocrit 39L , Mean Corpuscular Volume 94, Mean Corpuscular Hemoglobin 30, Mean Corpuscular Hemoglobin Concent 33, Red Cell Distribution Width 12.6, Platelet Count 180, Mean Platelet Volume 10.1, Immature Granulocyte % (Auto) 2, Neutrophils (%) (Auto) 93H, Lymphocytes (%) (Auto) 2L, Monocytes (%) (Auto) 3, Eosinophils (%) (Auto) 0, Basophils (%) (Auto) 0, Neutrophils # (Auto) 11.2H, Lymphocytes # (Auto) 0.2L, Monocytes # (Auto) 0.4, Eosinophils # (Auto) 0.0, Basophils # (Auto) 0.0, Immature Granulocyte # (Auto) 0.3H, Sodium Level 141, Potassium Level 4.0, Chloride Level 108H, Carbon Dioxide Level 25, Anion Gap 8, Blood Urea Nitrogen 16, Creatinine 0.81, Estimat Glomerular Filtration Rate > 60, BUN/Creat inine Ratio 20, Glucose Level 193H, Calcium Level 7.7L, Corrected Calcium 9.0, Total Bilirubin 1.4H, Aspartate Amino Transf (AST/SGOT) 59H, Alanine Aminotransferase (ALT/SGPT) 71H, Alkaline Phosphatase 94, Total Protein 5.3L, Albumin 2.4L Assessment/Plan Assessment/Plan Assess & Plan/Chief Complaint 1. COVID Pneumonia with Respiratory Failure--sedated on ventilator with eICU management, currently prone, on Rocephin/Zithromax,on lovenox for DVT prophylax is, protonix for GI prophylaxis, will call with update Clinical Quality Measures Admission Status Admission Dx 1. COVID-19 Pneumonia with Hypoxia--admit to medical floor, oxygen and advance to Vapotherm if needed, IV decadron, Covalescent plasma, Lovenox for DVT prophylaxis, Rocephin/Zithromax due to worsening infiltrates on CXR 2. Nausea--IV protonix and IV zofran prn CRISTOBAL STEVENS DO Mar 21, 2021 12:51
[2021-03-21] MEDS: FLUTICASONE NASAL SPRAY (FLONASE) 16 GM BTL NS SCH (14:44)
[2021-03-21] MEDS ORDERED: AZITHROMYCIN INJECTION 250 MG in NS (IVPB) 250 ML IV SCH (15:00)
[2021-03-22] VITALS (29 sets, daily range): BP systolic 122–151; BP diastolic 69–105
[2021-03-22] MEDS: inSUlin ASPART (NovoLOG) 1 UNIT/0.01 ML (CHARGE PER UNIT) SC SCH ×5 (00:15→23:35)
[2021-03-22] MEDS: PROPOFOL DRIP (ICU) 100 ML IV SCH ×8 (00:16→21:37)
[2021-03-22] MEDS: RT-ALBUTEROL INHALER HFA (VENTOLIN HFA) 18 GM IH SCH ×5 (02:24→21:33)
[2021-03-22] MEDS: LORazepam INJ 2 MG/ML (ATIVAN) VIAL IVP PRN (03:49)
[2021-03-22 03:55] LABS: ABG BASE EXCESS 2.1 MMOL/L (-2.5-2.5); ABG OXYGEN SATURATION 96 % (94-100); ABG PCO2 41 MMHG (35-45); ABG PH 7.42 (7.37-7.43); ABG PO2 86 MMHG (79-93); ABG TCO2 27.7 MMOL/L (21.0-31.0); ALLENS TEST YES-POS; BASOPHILS % (AUTO) 0 % (0-10); EOSINOPHILS % (AUTO) 0 % (0-10); HEMATOCRIT 40 % (40-54); HEMOGLOBIN 12.7 g/dL (13.3-17.7); INSPIRED O2 50%; LYMPHOCYTES # (AUTO) 0.3 10^3/uL (1.0-4.0); LYMPHOCYTES % (AUTO) 3 % (12-44); MEAN CORPUSCULAR HEMOGLOBIN 30 pg (25-34); MEAN CORPUSCULAR HGB CONC 32 g/dL (32-36); MEAN CORPUSCULAR VOLUME 94 fL (80-99); MEAN PLATELET VOLUME 10.3 fL (9.0-12.2); MONOCYTES # (AUTO) 0.4 10^3/uL (0.0-1.0); MONOCYTES % (AUTO) 4 % (0-12); NEUTROPHILS # (AUTO) 10.2 10^3/uL (1.8-7.8); NEUTROPHILS % (AUTO) 88 % (42-75); PLATELET COUNT 174 10^3/uL (130-400); VENTILATOR YES; WHITE BLOOD COUNT 11.5 10^3/uL (4.3-11.0)
[2021-03-22 03:56] LABS: PATIENT TEMP 36.2
[2021-03-22 04:04] LABS: CHLORIDE 109 MMOL/L (98-107); POTASSIUM 4.4 MMOL/L (3.6-5.0)
[2021-03-22 04:05] LABS: SODIUM 143 MMOL/L (135-145)
[2021-03-22 04:06] LABS: CALCIUM 7.6 MG/DL (8.5-10.1); GLUCOSE 156 MG/DL (70-105)
[2021-03-22 04:08] LABS: CARBON DIOXIDE 24 MMOL/L (21-32)
[2021-03-22 04:10] LABS: GFR ESTIMATED > 60; PHOSPHORUS 2.5 MG/DL (2.3-4.7)
[2021-03-22 04:11] LABS: BUN/CREATININE RATIO 21
[2021-03-22 04:13] LABS: MAGNESIUM 2.6 MG/DL (1.6-2.4)
[2021-03-22] MEDS: POTASSIUM CL 10MEQ/50ML IVPB 50 ML IV SCH (06:42)
[2021-03-22] MEDS: KCL 20 MEQ TAB (K-DUR) PO SCH (06:42)
[2021-03-22] MEDS: DexMEDEtomidine 250 ML DRIP 250 ML IV SCH ×2 (06:42→16:25)
[2021-03-22] MEDS: MAGNESIUM 1 GM/100 ML IVPB 100 ML IV SCH (06:42)
--- NOTE | 2021-03-22 07:53 | Diagnostic Imaging Report ---
Indication: COVID infection AP view of the chest obtained with comparison made to study of one day earlier. Extensive airspace disease is again seen throughout the lungs bilaterally. No pneumothorax or significant pleural fluid is identified. Endotracheal tube and nasogastric tube are in stable position. IMPRESSION: Unchanged extensive bilateral pulmonary airspace disease. Report was faxed to [facility] Infection Control by johanny at 7:52AM. Dictated by: Dictated on workstation # [id number]
[2021-03-22] MEDS: PANTOPRAZOLE 40 MG (PROTONIX) VIAL IV SCH (08:09)
[2021-03-22] MEDS: FLUTICASONE NASAL SPRAY (FLONASE) 16 GM BTL NS SCH (08:10)
[2021-03-22] MEDS: NS IV 1000 ML 1,000 ML IV SCH ×2 (08:37→23:36)
[2021-03-22 08:50] LABS: BILIRUBIN,URINE 1+ (NEGATIVE); CLARITY,URINE CLEAR; COLOR,URINE YELLOW; GLUCOSE, URINE (UA) NEGATIVE (NEGATIVE); KETONES,URINE NEGATIVE (NEGATIVE); LEUKOCYTE ESTERASE ,URINE NEGATIVE (NEGATIVE); NITRITE,URINE NEGATIVE (NEGATIVE); PROTEIN,URINE 1+ (NEGATIVE)
[2021-03-22 08:59] LABS: AMORPHOUS SEDIMENT,UR FEW AMOR URATES /LPF; BACTERIA,URINE TRACE /HPF; RBC,URINE 25-50 /HPF; WBC,URINE 0-2 /HPF
[2021-03-22] MEDS: LACRI-LUBE OPTHALMIC OINT 3.5 GM TUBE OU SCH ×2 (09:27→21:36)
[2021-03-22] MEDS ORDERED: HYDROmorphone 2 MG/ML VIAL (DILAUDID) ONE (09:51)
[2021-03-22] MEDS ORDERED: FUROSEMIDE 40 MG/4 ML INJ (LASIX) ONE (09:59)
[2021-03-22] MEDS ORDERED: FUROSEMIDE 40 MG/4 ML INJ (LASIX) IVP ONE (10:00)
[2021-03-22] MEDS ORDERED: HYDROmorphone 2 MG/ML VIAL (DILAUDID) IVP ONE (10:00)
--- NOTE | 2021-03-22 10:01 | Tele-ICU Progress Note ---
Subjective Date Seen by a Provider: Mar 22, 2021 Time Seen by a Provider: 10:00 Sepsis Event Evaluation Height, Weight, BMI Height: 5'7.00" Weight: 195lbs. 0.0oz. 88.041674om; 32.80 BMI Method:Stated Exam Exam Patient acknowledged, consented, and participated in this virtual visit which was conducted using real time audio/video Vital Signs Date Time Temp Pulse Resp B/P (MAP) Pulse Ox O2 Delivery O2 Flow Rate FiO2 03/22/21 08:13 36.8 03/22/21 08:00 91 Mechanical Ventilator 65 03/22/21 06:57 70 31 90 50 03/22/21 06:42 142/91 03/22/21 06:41 142/91 03/22/21 06:00 55 30 142/91 (108) 92 Mechanical Ventilator 60.00 03/22/21 05:00 53 30 145/85 (105) 90 Mechanical Ventilator 60.00 03/22/21 04:06 90 Mechanical Ventilator 60 03/22/21 04:05 90 Mechanical Ventilator 60.00 03/22/21 04:00 66 36 151/91 (111) 90 Mechanical Ventilator 50.00 03/22/21 03:52 36.2 03/22/21 03:51 157/107 03/22/21 03:04 76 26 149/105 (120) 99 Mechanical Ventilator 50.00 03/22/21 02:24 59 30 94 50 03/22/21 02:00 54 30 140/92 (108) 94 Mechanical Ventilator 50.00 03/22/21 01:00 52 03/22/21 01:00 52 31 140/87 (104) 93 Mechanical Ventilator 50.00 03/22/21 00:19 94 Mechanical Ventilator 50 03/22/21 00:16 139/91 03/22/21 00:00 36.2 03/22/21 00:00 56 19 139/91 (107) 93 Mechanical Ventilator 50.00 03/21/21 23:01 52 30 94 50 03/21/21 23:00 52 29 137/86 (103) 94 Mechanical Ventilator 50.00 03/21/21 22:00 55 30 140/91 (107) 93 Mechanical Ventilator 50.00 03/21/21 21:00 55 29 137/87 (104) 93 Mechanical Ventilator 50.00 03/21/21 20:10 36.0 51 30 139/87 (104) 95 Mechanical Ventilator 50.00 03/21/21 20:10 139/87 03/21/21 20:09 53 139/87 03/21/21 19:50 92 Mechanical Ventilator 50 03/21/21 19:00 52 30 146/87 (106) 94 Mechanical Ventilator 55.00 03/21/21 19:00 52 03/21/21 18:38 53 32 95 60 03/21/21 18:00 53 25 139/87 (104) 95 Mechanical Ventilator 55.00 03/21/21 17:00 50 24 141/87 (105) 94 Mechanical Ventilator 55.00 03/21/21 16:41 Mechanical Ventilator 55.00 03/21/21 16:00 35.8 03/21/21 16:00 97 Mechanical Ventilator 55 03/21/21 16:00 68 30 159/97 (117) 93 Mechanical Ventilator 60.00 03/21/21 15:42 55 30 95 60 03/21/21 15:00 59 30 137/91 (106) 94 Mechanical Ventilator 60.00 03/21/21 14:23 60.00 03/21/21 14:00 53 30 138/90 (106) 97 Mechanical Ventilator 70.00 03/21/21 13:00 58 03/21/21 13:00 54 29 135/83 (100) 97 Mechanical Ventilator 70.00 03/21/21 12:07 56 03/21/21 12:00 57 29 137/86 (103) 97 Mechanical Ventilator 70.00 03/21/21 12:00 97 Mechanical Ventilator 60 03/21/21 11:08 60 30 94 80 03/21/21 11:00 56 30 137/79 (98) 94 Mechanical Ventilator 70.00 I & O 03/22/21 07:00 Intake Total 2230 ml Output Total 1400 ml Balance 830 ml Height & Weight Height: 5'7.00" Weight: 195lbs. 0.0oz. 88.411993gz; 32.80 BMI Method:Stated General Appearance: Mild Distress HEENT: PERRL/EOMI Neck: Supple Respiratory: Crackles, Decreased Breath Sounds, Respiratory Distress Cardiovascular: Regular Rate, Rhythm Peripheral Pulses: 2+ Dorsalis Pedis (R), 2+ Left Dors-Pedis (L), 2+ Radial Pulses (R) Gastrointestinal: normal bowel sounds, non tender, soft Extremity: Non Tender, No Calf Tenderness Neurologic/Psychiatric: Alert, Oriented x3 Skin: Warm/Dry Results Lab Laboratory Tests 03/21/21 03:36 03/21/21 10:00 03/22/21 03:46 Assessment/Plan Assessment/Plan (Tele-ICU Physician , Progress Note ) Available chart/ vitals / labs / Images reviewed Video assessment done using teleICU camera, rest of exam as per RN Discussed with RN. Exam as per RN -course on right , more clear on left, edema 1+ Events overnight: a fib run this am Afebrile, i/o - positive 1400 VENT SETTINGS. rr 30 - 65 % peep 12 -500 ABG reviewed Sedation: RASS -3 Pressors: Drips: NS 75 precedex . propofol 50, precedex Consultants: Hospital course: (03/19) 55 Y admitted for Covid pneumonia/Respiratory fialure and hypoxia. Pt transferred from floor for worsening hypoxia on Bipap 100% RR 41 sats 89. (03/20) Intubated SBT vital /Cardiovascular Stability/Sedation Score/FI02/PEEP/ABG/CXR reviewed - not candidate today A/P -Acute reps failur - , hypoxic , Covid PNA -cont full vent support -prone @10a - if decrease fi02 to 50 will stop troning tomorrew and assess for extubatrion - stop IVF ( up to goal with freeding ) , lasix x1 Covid PNA - d dimer 1.25 03/17 ( No CT done - steroids - q12 leukocytosis - ? steroids - -ceftriaxon 03/17, Z-max 03/18 A fib - short run 03/21 - converted spontaneously - monitor , no additional w/up Lines : femoral 03/20 (Central Line Necessity Reviewed) Ghosh: 03/19 N/27 Analgesia: na Sedation: see above HOB Elevation: confirmed Nutrition: start TF 03/21 - toleates VTE Prophylaxis: Lovenox 40 qd Stress Ulcer Prophylaxis: PPI Glycemic Control: + Plans in collaboration with bedside consultants and IM MDs. Discussed with RN to reach out if any questions or concerns A total of 37 minutes of critical care time was devoted to this patient today, required to treat and/or prevent further deterioration of critical care condition ( as above ) . ALVARO WHITESIDE MD Mar 22, 2021 10:01
[2021-03-22] MEDS: ENOXAPARIN 40 MG/0.4 ML (LOVENOX) SYR SC SCH (11:05)
[2021-03-22] MEDS: fentaNYL INJ 100 MCG/2 ML AMP IVP PRN ×3 (12:10→17:26)
--- NOTE | 2021-03-22 13:05 | Progress Note ---
Subjective Date Seen by a Provider: Mar 22, 2021 Time Seen by a Provider: 08:30 Subjective/Events-last exam Fwup COVID 19 Pneumonia/Respiratory Failure. Sedated on ventilator. Sats 90%--stable overnight. Sats better with proning. Objective Exam Vital Signs Date Time Temp Pulse Resp B/P (MAP) Pulse Ox O2 Delivery O2 Flow Rate FiO2 03/22/21 12:23 36.4 03/22/21 12:11 90 Mechanical Ventilator 100 03/22/21 11:07 62 135/84 03/22/21 11:06 62 134/84 03/22/21 10:00 93 Mechanical Ventilator 100.00 03/22/21 08:13 36.8 03/22/21 08:00 91 Mechanical Ventilator 65 03/22/21 07:00 69 03/22/21 06:57 70 31 90 50 03/22/21 06:42 142/91 03/22/21 06:41 142/91 03/22/21 06:00 55 30 142/91 (108) 92 Mechanical Ventilator 60.00 03/22/21 05:00 53 30 145/85 (105) 90 Mechanical Ventilator 60.00 03/22/21 04:06 90 Mechanical Ventilator 60 03/22/21 04:05 90 Mechanical Ventilator 60.00 03/22/21 04:00 66 36 151/91 (111) 90 Mechanical Ventilator 50.00 03/22/21 03:52 36.2 03/22/21 03:51 157/107 03/22/21 03:04 76 26 149/105 (120) 99 Mechanical Ventilator 50.00 03/22/21 02:24 59 30 94 50 03/22/21 02:00 54 30 140/92 (108) 94 Mechanical Ventilator 50.00 03/22/21 01:00 52 03/22/21 01:00 52 31 140/87 (104) 93 Mechanical Ventilator 50.00 03/22/21 00:19 94 Mechanical Ventilator 50 03/22/21 00:16 139/91 03/22/21 00:00 36.2 03/22/21 00:00 56 19 139/91 (107) 93 Mechanical Ventilator 50.00 03/21/21 23:01 52 30 94 50 03/21/21 23:00 52 29 137/86 (103) 94 Mechanical Ventilator 50.00 03/21/21 22:00 55 30 140/91 (107) 93 Mechanical Ventilator 50.00 03/21/21 21:00 55 29 137/87 (104) 93 Mechanical Ventilator 50.00 03/21/21 20:10 36.0 51 30 139/87 (104) 95 Mechanical Ventilator 50.00 03/21/21 20:10 139/87 03/21/21 20:09 53 139/87 03/21/21 19:50 92 Mechanical Ventilator 50 03/21/21 19:00 52 30 146/87 (106) 94 Mechanical Ventilator 55.00 03/21/21 19:00 52 03/21/21 18:38 53 32 95 60 03/21/21 18:00 53 25 139/87 (104) 95 Mechanical Ventilator 55.00 03/21/21 17:00 50 24 141/87 (105) 94 Mechanical Ventilator 55.00 03/21/21 16:41 Mechanical Ventilator 55.00 03/21/21 16:00 35.8 03/21/21 16:00 97 Mechanical Ventilator 55 03/21/21 16:00 68 30 159/97 (117) 93 Mechanical Ventilator 60.00 03/21/21 15:42 55 30 95 60 03/21/21 15:00 59 30 137/91 (106) 94 Mechanical Ventilator 60.00 03/21/21 14:23 60.00 03/21/21 14:00 53 30 138/90 (106) 97 Mechanical Ventilator 70.00 I & O 03/22/21 06:59 Intake Total 2230 ml Output Total 1400 ml Balance 830 ml Capillary Refill : General Appearance: Other (sedated) Respiratory: Crackles, Decreased Breath Sounds (coarse) Cardiovascular: Regular Rate, Rhythm Gastrointestinal: normal bowel sounds, soft Extremity: No Pedal Edema Neurologic/Psychiatric: Other (sedated) Skin: Warm/Dry Results Lab Laboratory Tests 03/21/21 17:48: Glucometer 177H 03/22/21 00:14: Glucometer 156H 03/22/21 03:46: White Blood Count 11.5H, Red Blood Count 4.26L, Hemoglobin 12.7L, Hematocrit 40, Mean Corpuscular Volume 94, Mean Corpuscular Hemoglobin 30, Mean Corpuscular Hemoglobin Concent 32, Red Cell Distribution Width 12.8, Platelet Count 174, Mean Platelet Volume 10.3, Immature Granulocyte % (Auto) 5, Neutrophils (%) (Auto) 88H, Lymphocytes (%) (Auto) 3L, Monocytes (%) (Auto) 4, Eosinophils (%) (Auto) 0, Basophils (%) (Auto) 0, Neutrophils # (Auto) 10.2H, Lymphocytes # (Auto) 0.3L, Monocytes # (Auto) 0.4, Eosinophils # (Auto) 0.0, Basophils # (Auto) 0.0, Immature Granulocyte # (Auto) 0.6H, Blood Gas Puncture Site RIGHT RADIAL, Blood Gas Patient Temperature 36.2, Arterial Blood pH 7.42, Arterial Blood Partial Pressure CO2 41, Arterial Blood Partial Pressure O2 86, Arterial Blood HCO3 26, Arterial Blood Total CO2 27.7, Arterial Blood Oxygen Saturation 96, Arterial Blood Base Excess 2.1, Nikita Test YES-POS, Blood Gas Ventilator Setting YES, Blood Gas Inspired Oxygen 50%, Sodium Level 143, Potassium Level 4.4, Chloride Level 109H, Carbon Dioxide Level 24, Anion Gap 10, Blood Urea Nitrogen 17, Creatinine 0.80, Estimat Glomerular Filtration Rate > 60, BUN/Creatinine Ratio 21, Glucose Level 156H, Calcium Level 7.6L, Phosphorus Level 2.5, Magnesium Level 2.6H 03/22/21 08:42: Urine Color YELLOW, Urine Clarity CLEAR, Urine pH 6.0, Urine Specific [place] >=1.030, Urine Protein 1+H, Urine Glucose (UA) NEGATIVE, Urine Ketones NEGATIVE, Urine Nitrite NEGATIVE, Urine Bilirubin 1+H, Urine Urobilinogen 0.2, Urine Leukocyte Esterase NEGATIVE, Urine RBC (Auto) 3+H, Urine RBC 25-50H, Urine WBC 0-2, Urine Crystals PRESENTH, Urine Amorphous Sediment FEW [place] URATESH, Urine Bacteria TRACE, Urine Casts NONE, Urine Mucus NEGATIVE, Urine Culture Indicated NO 03/22/21 11:14: Glucometer 170H Microbiology 03/20/21 Gram Stain - Final, Complete 03/20/21 Sputum Culture - Final, Complete No growth Assessment/Plan Assessment/Plan Assess & Plan/Chief Complaint 1. COVID Pneumonia with Respiratory Failure--sedated on ventilator with eICU management, repeat proning today, on Rocephin/Zithromax,on lovenox for DVT prophylaxis, protonix for GI prophylaxis, will call with update 2. Hematuria--check UA 3. Leukocytosis--WBC down a little today so likely steroid induced--will monitor Clinical Quality Measures Admission Status Admission Dx 1. COVID-19 Pneumonia with Hypoxia--admit to medical floor, oxygen and advance to Vapotherm if needed, IV decadron, Covalescent plasma, Lovenox for DVT prophylaxis, Rocephin/Zithromax due to worsening infiltrates on CXR 2. Nausea--IV protonix and IV zofran prn CRISTOBAL STEVENS DO Mar 22, 2021 13:05
[2021-03-22] MEDS ORDERED: fentaNYL INJ 100 MCG/2 ML AMP IVP ONE (15:30)
[2021-03-23] VITALS (30 sets, daily range): BP systolic 136–169; BP diastolic 68–98
[2021-03-23] MEDS: RT-ALBUTEROL INHALER HFA (VENTOLIN HFA) 18 GM IH SCH ×6 (01:33→21:22)
[2021-03-23 01:55] LABS: ABG BASE EXCESS 5.9 MMOL/L (-2.5-2.5); ABG OXYGEN SATURATION 95 % (94-100); ABG PCO2 43 MMHG (35-45); ABG PH 7.46 (7.37-7.43); ABG PO2 78 MMHG (79-93); ABG TCO2 31.2 MMOL/L (21.0-31.0)
[2021-03-23 01:56] LABS: ALLENS TEST YES-POS; INSPIRED O2 100%; VENTILATOR YES
[2021-03-23 01:57] LABS: PATIENT TEMP 36.8
[2021-03-23 02:39] LABS: BASOPHILS % (AUTO) 0 % (0-10); EOSINOPHILS % (AUTO) 0 % (0-10); HEMATOCRIT 39 % (40-54); HEMOGLOBIN 12.9 g/dL (13.3-17.7); LYMPHOCYTES # (AUTO) 0.7 10^3/uL (1.0-4.0); LYMPHOCYTES % (AUTO) 5 % (12-44); MEAN CORPUSCULAR HEMOGLOBIN 31 pg (25-34); MEAN CORPUSCULAR HGB CONC 33 g/dL (32-36); MEAN CORPUSCULAR VOLUME 94 fL (80-99); MEAN PLATELET VOLUME 10.2 fL (9.0-12.2); MONOCYTES # (AUTO) 0.5 10^3/uL (0.0-1.0); MONOCYTES % (AUTO) 3 % (0-12); NEUTROPHILS # (AUTO) 11.6 10^3/uL (1.8-7.8); NEUTROPHILS % (AUTO) 86 % (42-75); PLATELET COUNT 165 10^3/uL (130-400); WHITE BLOOD COUNT 13.5 10^3/uL (4.3-11.0)
[2021-03-23] MEDS: DexMEDEtomidine 250 ML DRIP 250 ML IV SCH ×3 (02:46→17:53)
[2021-03-23 02:49] LABS: ALBUMIN 2.4 GM/DL (3.2-4.5); CHLORIDE 102 MMOL/L (98-107); SODIUM 139 MMOL/L (135-145)
[2021-03-23 02:50] LABS: CALCIUM 7.3 MG/DL (8.5-10.1)
[2021-03-23 02:52] LABS: GLUCOSE 166 MG/DL (70-105); TOTAL PROTEIN 6.2 GM/DL (6.4-8.2)
[2021-03-23 02:53] LABS: CARBON DIOXIDE 25 MMOL/L (21-32)
[2021-03-23 02:54] LABS: BILIRUBIN,TOTAL 1.8 MG/DL (0.1-1.0)
[2021-03-23 02:55] LABS: ALKALINE PHOSPHATASE 169 U/L (40-136); CREATININE SERUM 0.79 MG/DL (0.60-1.30); GFR ESTIMATED > 60; PHOSPHORUS 2.4 MG/DL (2.3-4.7)
[2021-03-23 02:56] LABS: BUN/CREATININE RATIO 27
[2021-03-23 02:58] LABS: ALANINE AMINOTRANSFERASE 86 U/L (0-55); MAGNESIUM 2.3 MG/DL (1.6-2.4)
[2021-03-23] MEDS: PROPOFOL DRIP (ICU) 100 ML IV SCH ×8 (04:04→23:54)
[2021-03-23] MEDS: MAGNESIUM 1 GM/100 ML IVPB 100 ML IV SCH (04:36)
[2021-03-23] MEDS: POTASSIUM CL 10MEQ/50ML IVPB 50 ML IV SCH (04:36)
[2021-03-23] MEDS: KCL 20 MEQ TAB (K-DUR) PO SCH (04:37)
[2021-03-23] MEDS: inSUlin ASPART (NovoLOG) 1 UNIT/0.01 ML (CHARGE PER UNIT) SC SCH ×4 (04:37→22:33)
[2021-03-23] MEDS: LACRI-LUBE OPTHALMIC OINT 3.5 GM TUBE OU SCH ×2 (08:04→22:32)
[2021-03-23] MEDS: PANTOPRAZOLE 40 MG (PROTONIX) VIAL IV SCH (08:04)
[2021-03-23] MEDS: FLUTICASONE NASAL SPRAY (FLONASE) 16 GM BTL NS SCH (08:04)
[2021-03-23] MEDS: fentaNYL INJ 100 MCG/2 ML AMP IVP PRN ×4 (08:05→16:08)
[2021-03-23] MEDS ORDERED: ALBUMIN 25% 25 GM/100 ML 100 ML IV ONE (08:45)
[2021-03-23] MEDS ORDERED: FUROSEMIDE 40 MG/4 ML INJ (LASIX) IVP ONE (08:45)
--- NOTE | 2021-03-23 08:59 | Tele-ICU Progress Note ---
Subjective Date Seen by a Provider: Mar 23, 2021 Time Seen by a Provider: 08:59 Sepsis Event Evaluation Height, Weight, BMI Height: 5'7.00" Weight: 195lbs. 0.0oz. 88.755964zn; 32.80 BMI Method:Stated Exam Exam Patient acknowledged, consented, and participated in this virtual visit which was conducted using real time audio/video Vital Signs Date Time Temp Pulse Resp B/P (MAP) Pulse Ox O2 Delivery O2 Flow Rate FiO2 03/23/21 08:11 36.6 03/23/21 07:09 75 34 95 100 03/23/21 07:00 93 Mechanical Ventilator 100 03/23/21 06:00 82 37 141/79 (100) 95 Mechanical Ventilator 100.00 03/23/21 05:00 65 23 138/76 (98) 95 Mechanical Ventilator 100.00 03/23/21 04:04 80 136/68 03/23/21 04:04 80 136/68 03/23/21 04:00 67 35 148/83 (99) 95 Mechanical Ventilator 100.00 03/23/21 04:00 95 Mechanical Ventilator 100 03/23/21 03:22 36.2 03/23/21 03:00 80 32 136/68 (90) 95 Mechanical Ventilator 100.00 03/23/21 02:46 74 143/81 03/23/21 02:00 74 38 143/81 (101) 93 Mechanical Ventilator 100.00 03/23/21 01:33 59 27 91 100 03/23/21 01:00 62 32 144/82 (102) 90 Mechanical Ventilator 100.00 03/23/21 01:00 62 03/23/21 00:42 58 27 91 100 03/23/21 00:00 91 Mechanical Ventilator 100 03/23/21 00:00 56 38 137/82 (100) 92 Mechanical Ventilator 100.00 03/22/21 23:36 36.8 03/22/21 23:00 61 31 133/76 (99) 89 Mechanical Ventilator 100.00 03/22/21 22:00 71 36 140/78 (101) 90 Mechanical Ventilator 100.00 03/22/21 21:37 70 138/76 03/22/21 21:36 70 138/76 03/22/21 21:28 70 35 91 100 03/22/21 21:00 66 34 138/76 (100) 92 Mechanical Ventilator 100.00 03/22/21 20:00 71 138/76 (103) 90 Mechanical Ventilator 100.00 03/22/21 20:00 91 Mechanical Ventilator 100 03/22/21 19:08 73 31 92 100 03/22/21 19:00 72 03/22/21 19:00 37.0 03/22/21 19:00 72 34 133/73 (93) 91 Mechanical Ventilator 100.00 03/22/21 18:00 75 33 134/74 (94) 91 Mechanical Ventilator 100.00 03/22/21 17:30 37.3 03/22/21 17:00 76 132/76 (94) 91 Mechanical Ventilator 100.00 03/22/21 16:25 76 130/72 03/22/21 16:00 75 27 130/72 (91) 88 Mechanical Ventilator 100.00 03/22/21 16:00 91 Mechanical Ventilator 100 03/22/21 15:00 85 122/69 (86) 90 Mechanical Ventilator 100.00 03/22/21 14:57 86 135/83 03/22/21 14:57 86 135/83 03/22/21 14:48 84 30 91 50 03/22/21 14:00 65 17 135/83 (100) 90 Mechanical Ventilator 100.00 03/22/21 13:00 64 03/22/21 13:00 63 13 135/79 (97) 90 Mechanical Ventilator 100.00 03/22/21 12:23 36.4 03/22/21 12:11 90 Mechanical Ventilator 100 03/22/21 12:00 65 17 130/79 (96) 92 Mechanical Ventilator 100.00 03/22/21 11:07 62 135/84 03/22/21 11:06 62 134/84 03/22/21 11:00 60 26 135/84 (101) 90 Mechanical Ventilator 100.00 03/22/21 10:00 93 Mechanical Ventilator 100.00 03/22/21 10:00 68 30 137/85 (102) 93 Mechanical Ventilator 100.00 03/22/21 09:00 62 30 141/80 (100) 87 Mechanical Ventilator 60.00 I & O 03/23/21 07:00 Intake Total 2500 ml Output Total 3320 ml Balance -820 ml Height & Weight Height: 5'7.00" Weight: 195lbs. 0.0oz. 88.940197am; 32.80 BMI Method:Stated General Appearance: Other (sedated) HEENT: PERRL/EOMI Neck: Supple Respiratory: Crackles, Decreased Breath Sounds (coarse) Cardiovascular: Regular Rate, Rhythm Peripheral Pulses: 2+ Dorsalis Pedis (R), 2+ Left Dors-Pedis (L), 2+ Radial Pulses (R) Gastrointestinal: normal bowel sounds, soft Extremity: No Pedal Edema Neurologic/Psychiatric: Other (sedated) Skin: Warm/Dry Results Lab Laboratory Tests 03/21/21 10:00 03/22/21 03:46 03/23/21 02:30 Assessment/Plan Assessment/Plan (Tele-ICU Physician , Progress Note ) Available chart/ vitals / labs / Images reviewed Video assessment done using teleICU camera, rest of exam as per RN Discussed with RN. Exam as per RN -course on right , more clear on left, edema 1+ , REDNESS ON LEFT ARM Events overnight: increased peep to 14 with desats Afebrile, i/o - neg 500 VENT SETTINGS. PC rr 26- 100 % peep 14 ABG reviewed Sedation: RASS -3 Pressors: Drips: NS 75 precedex . propofol 50, precedex , fentanyl prn Consultants: Hospital course: (03/19) 55 Y admitted for Covid pneumonia/Respiratory fialure and hypoxia. Pt transferred from floor for worsening hypoxia on Bipap 100% RR 41 sats 89. (03/20) Intubated 03/23 - increased peep to 14 , 100% SBT vital /Cardiovascular Stability/Sedation Score/FI02/PEEP/ABG/CXR reviewed - not candidate today A/P -Acute reps failur - , hypoxic , Covid PNA -cont full vent support - PC rr 26- 100 % peep 14 -prone @10a - if decrease fi02 to 50 will stop troning tomorrew and assess for extubatrion - stop IVF, , lasix x1 today again with albumin - worsening FIO2 - will check ddimer - ? consider [facility] empiric increase of lovenox Covid PNA - d dimer 1.25 03/17 ( No CT done ) - will check ddimer - ? consider [facility] empiric increase of lovenox - steroids - 6q12 leukocytosis - ? steroids - -ceftriaxon 03/17, Z-max 03/18 A fib - short run 03/21 - converted spontaneously - monitor , no additional w/up Hermilo residials - starting reglan Lines : femoral 03/20 (Central Line Necessity Reviewed) Ghosh: 03/19 N/27 Analgesia: fentanyl prn Sedation: see above HOB Elevation: confirmed Nutrition: start TF 03/21 - high residuals - started reglan on 03/23 VTE Prophylaxis: Lovenox 40 qd Stress Ulcer Prophylaxis: PPI Glycemic Control: + Plans in collaboration with bedside consultants and IM MDs. Discussed with RN to reach out if any questions or concerns A total of 37 minutes of critical care time was devoted to this patient today, required to treat and/or prevent further deterioration of critical care condition ( as above ) . ALVARO WHITESIDE MD Mar 23, 2021 08:59
--- NOTE | 2021-03-23 09:02 | Diagnostic Imaging Report ---
PROCEDURE: US venous upper extremity left. TECHNIQUE: Multiple realtime grayscale images were obtained of left upper extremity in various projections. Additional spectral analysis and color Doppler duplex images were also obtained. INDICATION: Left arm pain and swelling. The left internal jugular vein as well as left subclavian and axillary veins are widely patent. Brachial vein is patent. Basilic vein is patent. Radial and ulnar veins are patent. There is thrombus identified in the cephalic vein commencing just above the level of the elbow and extending to the wrist. No fluid collections are seen. IMPRESSION: Cephalic vein thrombosis, as described. No other abnormality is seen. Dictated by: Dictated on workstation # [id number]
--- NOTE | 2021-03-23 09:08 | Diagnostic Imaging Report ---
Indication: COVID 19 positive. Time of exam 2:16 AM Correlation is made with prior chest from one day earlier. ET tube is located at the level of the patricia and could be pulled back 1 to 2 cm. NG tube has the tip passing just below the hemidiaphragm. NG tube could be advanced as well. There are bilateral pulmonary infiltrates slightly improved when compared with yesterday. Right upper extremity PICC line has tip overlying SVC right atrial junction. There is no effusion or pneumothorax. IMPRESSION: 1. Slight improvement in bilateral infiltrates when compared with yesterday's study. 2. ET tube is slightly low in position and should be pulled back 1 to 2 cm. Report was called to [facility] Chiquis Hebert nurse by johanny at 9:08am. Report was faxed to [facility] by johanny at 9:10AM. Dictated by: Dictated on workstation # [id number]
[2021-03-23] MEDS ORDERED: fentaNYL INJ 100 MCG/2 ML AMP ONE (10:30)
[2021-03-23] MEDS ORDERED: fentaNYL INJ 100 MCG/2 ML AMP IVP ONE (10:30)
[2021-03-23] MEDS ORDERED: LORazepam INJ 2 MG/ML (ATIVAN) VIAL IVP ONE (10:30)
[2021-03-23] MEDS ORDERED: LORazepam INJ 2 MG/ML (ATIVAN) VIAL ONE (10:30)
[2021-03-23] MEDS ORDERED: FUROSEMIDE 40 MG/4 ML INJ (LASIX) ONE (10:55)
[2021-03-23] MEDS: METOCLOPRAMIDE INJ 10 MG/2 ML (REGLAN) IVP SCH ×3 (11:02→23:51)
[2021-03-23] MEDS: ENOXAPARIN 40 MG/0.4 ML (LOVENOX) SYR SC SCH (11:02)
[2021-03-23] MEDS: NS IV 1000 ML 1,000 ML IV SCH (11:09)
[2021-03-23] MEDS ORDERED: ANIDULAFUNGIN INJECTION 200 MG in NS (IVPB) 250 ML IV NR (13:00)
--- NOTE | 2021-03-23 13:01 | Progress Note ---
Subjective Date Seen by a Provider: Mar 23, 2021 Time Seen by a Provider: 12:54 Subjective/Events-last exam Fwup COVID 19 Pneumonia/Respiratory Failure. Sedated on ventilator. Prone. Requiring higher pressures. LUE was swollen--venous doppler showed cephalic vein clot. Objective Exam Vital Signs Date Time Temp Pulse Resp B/P (MAP) Pulse Ox O2 Delivery O2 Flow Rate FiO2 03/23/21 12:32 71 03/23/21 12:00 72 36 161/95 (117) 94 Mechanical Ventilator 90.00 03/23/21 11:48 37.3 03/23/21 11:16 36.9 03/23/21 11:11 93 Mechanical Ventilator 90 03/23/21 11:00 75 35 156/94 (114) 92 Mechanical Ventilator 90.00 03/23/21 10:31 85 153/93 03/23/21 10:22 84 45 97 100 03/23/21 10:04 79 152/93 03/23/21 10:04 76 152/93 03/23/21 10:00 71 47 152/93 (112) 98 Mechanical Ventilator 100.00 03/23/21 09:00 74 32 94 Mechanical Ventilator 100.00 03/23/21 08:11 36.6 03/23/21 08:00 100 42 140/80 (100) 92 Mechanical Ventilator 100.00 03/23/21 07:09 75 34 95 100 03/23/21 07:00 78 39 143/82 (102) 95 Mechanical Ventilator 100.00 03/23/21 07:00 93 Mechanical Ventilator 100 03/23/21 06:37 78 03/23/21 06:00 82 37 141/79 (100) 95 Mechanical Ventilator 100.00 03/23/21 05:00 65 23 138/76 (98) 95 Mechanical Ventilator 100.00 03/23/21 04:04 80 136/68 03/23/21 04:04 80 136/68 03/23/21 04:00 67 35 148/83 (99) 95 Mechanical Ventilator 100.00 03/23/21 04:00 95 Mechanical Ventilator 100 03/23/21 03:22 36.2 03/23/21 03:00 80 32 136/68 (90) 95 Mechanical Ventilator 100.00 03/23/21 02:46 74 143/81 03/23/21 02:00 74 38 143/81 (101) 93 Mechanical Ventilator 100.00 03/23/21 01:33 59 27 91 100 03/23/21 01:00 62 32 144/82 (102) 90 Mechanical Ventilator 100.00 03/23/21 01:00 62 03/23/21 00:42 58 27 91 100 03/23/21 00:00 91 Mechanical Ventilator 100 03/23/21 00:00 56 38 137/82 (100) 92 Mechanical Ventilator 100.00 03/22/21 23:36 36.8 03/22/21 23:00 61 31 133/76 (99) 89 Mechanical Ventilator 100.00 03/22/21 22:00 71 36 140/78 (101) 90 Mechanical Ventilator 100.00 03/22/21 21:37 70 138/76 03/22/21 21:36 70 138/76 03/22/21 21:28 70 35 91 100 03/22/21 21:00 66 34 138/76 (100) 92 Mechanical Ventilator 100.00 03/22/21 20:00 71 138/76 (103) 90 Mechanical Ventilator 100.00 03/22/21 20:00 91 Mechanical Ventilator 100 03/22/21 19:08 73 31 92 100 03/22/21 19:00 72 03/22/21 19:00 37.0 03/22/21 19:00 72 34 133/73 (93) 91 Mechanical Ventilator 100.00 03/22/21 18:00 75 33 134/74 (94) 91 Mechanical Ventilator 100.00 03/22/21 17:30 37.3 03/22/21 17:00 76 132/76 (94) 91 Mechanical Ventilator 100.00 03/22/21 16:25 76 130/72 03/22/21 16:00 75 27 130/72 (91) 88 Mechanical Ventilator 100.00 03/22/21 16:00 91 Mechanical Ventilator 100 03/22/21 15:00 85 122/69 (86) 90 Mechanical Ventilator 100.00 03/22/21 14:57 86 135/83 03/22/21 14:57 86 135/83 03/22/21 14:48 84 30 91 50 03/22/21 14:00 65 17 135/83 (100) 90 Mechanical Ventilator 100.00 03/22/21 13:00 64 03/22/21 13:00 63 13 135/79 (97) 90 Mechanical Ventilator 100.00 I & O 03/23/21 07:00 Intake Total 2500 ml Output Total 3320 ml Balance -820 ml Capillary Refill : General Appearance: Other (sedated on ventilator) Respiratory: Rales, Rhonci Cardiovascular: Regular Rate, Rhythm Extremity: No Pedal Edema Neurologic/Psychiatric: Other (sedated) Results Lab Laboratory Tests 03/22/21 17:19: Glucometer 179H 03/22/21 23:33: Glucometer 159H 03/23/21 01:50: Blood Gas Puncture Site LEFT RADIAL, Blood Gas Patient Temperature 36.8, Arterial Blood pH 7.46H, Arterial Blood Partial Pressure CO2 43, Arterial Blood Partial Pressure O2 78L, Arterial Blood HCO3 30H, Arterial Blood Total CO2 31.2H , Arterial Blood Oxygen Saturation 95, Arterial Blood Base Excess 5.9H, Nikita Test YES-POS, Blood Gas Ventilator Setting YES, Blood Gas Inspired Oxygen 100% 03/23/21 02:30: White Blood Count 13.5H, Red Blood Count 4.11L, Hemoglobin 12.9L, Hematocrit 39L , Mean Corpuscular Volume 94, Mean Corpuscular Hemoglobin 31, Mean Corpuscular Hemoglobin Concent 33, Red Cell Distribution Width 12.7, Platelet Count 165, Mean Platelet Volume 10.2, Immature Granulocyte % (Auto) 5, Neutrophils (%) (Auto) 86H, Lymphocytes (%) (Auto) 5L, Monocytes (%) (Auto) 3, Eosinophils (%) (Auto) 0, Basophils (%) (Auto) 0, Neutrophils # (Auto) 11.6H, Lymphocytes # (Auto) 0.7L, Monocytes # (Auto) 0.5, Eosinophils # (Auto) 0.0, Basophils # (Auto) 0.0, Immature Granulocyte # (Auto) 0.6H, Sodium Level 139, Potassium Leve l 4.0, Chloride Level 102, Carbon Dioxide Level 25, Anion Gap 12, Blood Urea Nitrogen 21H, Creatinine 0.79, Estimat Glomerular Filtration Rate > 60, BUN/Creatinine Ratio 27, Glucose Level 166H, Calcium Level 7.3L, Corrected Calcium 8.6, Phosphorus Level 2.4, Magnesium Level 2.3, Total Bilirubin 1.8H, Aspartate Amino Transf (AST/SGOT) 55H, Alanine Aminotransferase (ALT/SGPT) 86H, Alkaline Phosphatase 169H, Total Protein 6.2L, Albumin 2.4L 03/23/21 08:00: D-Dimer >= 20.00*H 03/23/21 11:18: Glucometer 196H Microbiology 03/20/21 Gram Stain - Final, Complete 03/20/21 Sputum Culture - Final, Complete No growth Assessment/Plan Assessment/Plan Assess & Plan/Chief Complaint 1. COVID Pneumonia with Respiratory Failure--sedated on ventilator with eICU management, repeat proning today,Rocephin/Zithromax complete so with increased WBC count and requiring higher PEEP/pressures will add maxipime and eraxis,on lovenox for DVT prophylaxis but may need to increase, protonix for GI prophylaxis, called with update 2. Hematuria--improved today 3. Leukocytosis--add maxipime/eraxis 4. LUE Cephalic Vein Occlusion--will check LE venous dopplers did ask about transferring to larger facility like Clinical Quality Measures Admission Status Admission Dx 1. COVID-19 Pneumonia with Hypoxia--admit to medical floor, oxygen and advance to Vapotherm if needed, IV decadron, Covalescent plasma, Lovenox for DVT prophylaxis, Rocephin/Zithromax due to worsening infiltrates on CXR 2. Nausea--IV protonix and IV zofran lindan CRISTOBAL STEVENS DO Mar 23, 2021 13:01
[2021-03-23] MEDS: MEROPENEM 500 MG/SWFI 10 ML IV PUSH IV SCH ×6 (13:28→23:51)
[2021-03-23] MEDS ORDERED: MEROPENEM 2,000 MG in NS (IVPB) 100 ML IV SCH (14:00)
[2021-03-23] MEDS ORDERED: ENOXAPARIN 60 MG/0.6 ML (LOVENOX) SYR SC NR (15:15)
[2021-03-23] MEDS: ACETAMINOPHEN 325 MG TABLET PO PRN (17:52)
[2021-03-23] MEDS: LORazepam 1 MG (ATIVAN) TAB PO PRN (23:54)
[2021-03-24] VITALS (13 sets, daily range): BP systolic 137–155; BP diastolic 81–97
[2021-03-24] MEDS ORDERED: ENOXAPARIN 100 MG/1 ML (LOVENOX) SYR SC SCH (01:00)
[2021-03-24] MEDS: RT-ALBUTEROL INHALER HFA (VENTOLIN HFA) 18 GM IH SCH ×2 (01:22→06:42)
[2021-03-24] MEDS: NS IV 1000 ML 1,000 ML IV SCH (01:41)
[2021-03-24] MEDS: DexMEDEtomidine 250 ML DRIP 250 ML IV SCH ×2 (02:24→10:17)
[2021-03-24 02:53] LABS: BASOPHILS % (AUTO) 0 % (0-10); EOSINOPHILS % (AUTO) 0 % (0-10); HEMATOCRIT 32 % (40-54); HEMOGLOBIN 12.2 g/dL (13.3-17.7); LYMPHOCYTES # (AUTO) 0.4 10^3/uL (1.0-4.0); LYMPHOCYTES % (AUTO) 3 % (12-44); MEAN CORPUSCULAR HEMOGLOBIN 37 pg (25-34); MEAN CORPUSCULAR HGB CONC 39 g/dL (32-36); MEAN CORPUSCULAR VOLUME 97 fL (80-99); MONOCYTES # (AUTO) 0.3 10^3/uL (0.0-1.0); MONOCYTES % (AUTO) 2 % (0-12); NEUTROPHILS # (AUTO) 12.6 10^3/uL (1.8-7.8); NEUTROPHILS % (AUTO) 88 % (42-75); PLATELET COUNT 196 10^3/uL (130-400); WHITE BLOOD COUNT 14.4 10^3/uL (4.3-11.0)
[2021-03-24 03:04] LABS: CHLORIDE 94 MMOL/L (98-107); POTASSIUM 5.3 MMOL/L (3.6-5.0)
[2021-03-24 03:05] LABS: CALCIUM 6.1 MG/DL (8.5-10.1)
[2021-03-24 03:06] LABS: GLUCOSE 104 MG/DL (70-105)
[2021-03-24 03:07] LABS: CARBON DIOXIDE 21 MMOL/L (21-32)
[2021-03-24 03:09] LABS: PHOSPHORUS 1.4 MG/DL (2.3-4.7)
[2021-03-24 03:10] LABS: CREATININE SERUM 0.58 MG/DL (0.60-1.30); GFR ESTIMATED > 60
[2021-03-24 03:11] LABS: BUN/CREATININE RATIO 31
[2021-03-24 03:12] LABS: MAGNESIUM 1.9 MG/DL (1.6-2.4)
[2021-03-24 03:14] LABS: SODIUM 124 MMOL/L (135-145)
[2021-03-24 03:15] LABS: BAND NEUTROPHILS 2 %; BURR CELLS MARKED; LYMPHOCYTES % (MANUAL) 3 %; MONOCYTES % (MANUAL) 4 %; NEUTROPHILS % (MANUAL) 91 %
[2021-03-24] MEDS ORDERED: CALCIUM GLUC. 10% 4.65 MEQ/10 ML VIAL IV ONE (03:30)
[2021-03-24] MEDS ORDERED: SODIUM PHOSPHATE INJ 30 MM in NS (IVPB) 250 ML INJ ONE (03:30)
[2021-03-24 03:41] LABS: ABG BASE EXCESS 6.4 MMOL/L (-2.5-2.5); ABG OXYGEN SATURATION 94 % (94-100); ABG PCO2 48 MMHG (35-45); ABG PH 7.42 (7.37-7.43); ABG PO2 73 MMHG (79-93)
[2021-03-24 03:42] LABS: ALLENS TEST YES-POS; PATIENT TEMP 37.8; VENTILATOR YES
[2021-03-24] MEDS: ACETAMINOPHEN 325 MG TABLET PO PRN ×2 (04:08→09:29)
[2021-03-24] MEDS: PROPOFOL DRIP (ICU) 100 ML IV SCH ×4 (04:20→10:58)
[2021-03-24] MEDS: POTASSIUM CL 10MEQ/50ML IVPB 50 ML IV SCH (04:57)
[2021-03-24] MEDS: MAGNESIUM 1 GM/100 ML IVPB 100 ML IV SCH (04:58)
[2021-03-24] MEDS: KCL 20 MEQ TAB (K-DUR) PO SCH (04:58)
[2021-03-24] MEDS: inSUlin ASPART (NovoLOG) 1 UNIT/0.01 ML (CHARGE PER UNIT) SC SCH (04:59)
[2021-03-24] MEDS: MEROPENEM 500 MG/SWFI 10 ML IV PUSH IV SCH ×2 (06:00)
--- NOTE | 2021-03-24 07:42 | Diagnostic Imaging Report ---
Reason for examination: COVID 19. Upright AP portable chest was obtained and compared to yesterday. ET tube tip is between the clavicles and patricia, in good position. NG tube tip is at the GE junction. Right PICC line can be seen in the right axillary region and the tip appears to be projecting into the right IJ. Bilateral 5 lobe mixed interstitial and alveolar infiltrates. No pneumothorax, large effusion or cavitation. IMPRESSION: 1. Bilateral infiltrates without much change since the prior study. 2. Right PICC line is in place but the tip appears to be directed cephalad into the right IJ. Consider removal or repositioning. Report was called to [facility] Beulah Deburer/nurse by johanny at 7:41am. Report was faxed to [facility] Infection Control by johanny at 7:42AM. Dictated by: Dictated on workstation # [id number]
--- NOTE | 2021-03-24 08:23 | Tele-ICU Progress Note ---
Subjective Date Seen by a Provider: Mar 24, 2021 Time Seen by a Provider: 08:23 Sepsis Event Evaluation Height, Weight, BMI Height: 5'7.00" Weight: 195lbs. 0.0oz. [id number]; 32.80 BMI Method:Stated Exam Exam Patient acknowledged, consented, and participated in this virtual visit which was conducted using real time audio/video Vital Signs Date Time Temp Pulse Resp B/P (MAP) Pulse Ox O2 Delivery O2 Flow Rate FiO2 03/24/21 07:00 81 03/24/21 06:42 75 35 93 75 03/24/21 06:00 37.7 75 29 141/84 (103) 93 Mechanical Ventilator 80.00 03/24/21 05:00 37.6 65 29 137/81 (99) 93 Mechanical Ventilator 80.00 03/24/21 04:38 37.6 03/24/21 04:21 65 140/87 03/24/21 04:20 65 140/87 03/24/21 04:08 37.7 03/24/21 04:00 37.7 65 29 140/87 (104) 93 Mechanical Ventilator 80.00 03/24/21 04:00 93 Mechanical Ventilator 75 03/24/21 03:29 68 145/84 03/24/21 03:00 37.7 73 26 145/84 (104) 96 Mechanical Ventilator 80.00 03/24/21 02:24 65 146/90 03/24/21 02:00 37.6 62 27 146/90 (108) 94 Mechanical Ventilator 80.00 03/24/21 01:16 66 33 95 100 03/24/21 01:00 70 03/24/21 01:00 37.7 70 33 155/96 (115) 94 Mechanical Ventilator 80.00 03/24/21 00:53 73 156/97 03/24/21 00:08 79 149/97 03/24/21 00:00 37.5 80 34 149/97 (114) 92 Mechanical Ventilator 80.00 03/24/21 00:00 94 Mechanical Ventilator 80 03/23/21 23:54 70 151/90 03/23/21 23:53 70 151/90 03/23/21 23:00 37.7 69 29 151/90 (110) 91 Mechanical Ventilator 80.00 03/23/21 22:00 37.7 71 30 158/89 (112) 93 Mechanical Ventilator 80.00 03/23/21 21:15 63 28 93 80 03/23/21 21:00 37.8 65 26 154/88 (110) 96 Mechanical Ventilator 80.00 03/23/21 20:00 94 Mechanical Ventilator 80 03/23/21 20:00 37.9 76 29 154/88 (110) 94 Mechanical Ventilator 80.00 03/23/21 19:00 38.0 80 34 149/85 (106) 93 Mechanical Ventilator 80.00 03/23/21 19:00 80 03/23/21 18:35 74 34 92 80 03/23/21 18:22 38.0 03/23/21 18:00 38.1 81 35 151/87 (108) 94 Mechanical Ventilator 80.00 03/23/21 17:55 79 156/88 03/23/21 17:54 79 156/88 03/23/21 17:53 79 156/88 03/23/21 17:52 38.1 03/23/21 17:29 37.4 03/23/21 17:00 78 33 156/88 (110) 93 Mechanical Ventilator 80.00 03/23/21 16:00 85 29 151/98 (115) 90 Mechanical Ventilator 80.00 03/23/21 15:55 37.2 03/23/21 15:49 94 Mechanical Ventilator 80 03/23/21 15:00 80 36 151/88 (109) 92 Mechanical Ventilator 80.00 03/23/21 14:40 72 30 93 80 03/23/21 14:03 Mechanical Ventilator 80.00 03/23/21 14:00 70 39 163/97 (119) 94 Mechanical Ventilator 90.00 03/23/21 13:57 64 169/93 03/23/21 13:56 64 169/93 03/23/21 13:00 65 31 169/93 (118) 96 Mechanical Ventilator 90.00 03/23/21 12:32 71 03/23/21 12:00 72 36 161/95 (117) 94 Mechanical Ventilator 90.00 03/23/21 11:48 37.3 03/23/21 11:16 36.9 03/23/21 11:11 93 Mechanical Ventilator 90 03/23/21 11:00 75 35 156/94 (114) 92 Mechanical Ventilator 90.00 03/23/21 10:31 85 153/93 03/23/21 10:22 84 45 97 100 03/23/21 10:04 79 152/93 03/23/21 10:04 76 152/93 03/23/21 10:00 71 47 152/93 (112) 98 Mechanical Ventilator 100.00 03/23/21 09:00 74 32 94 Mechanical Ventilator 100.00 I & O 03/24/21 07:00 Intake Total 2525 ml Output Total 3525 ml Balance -1000 ml Height & Weight Height: 5'7.00" Weight: 195lbs. 0.0oz. 88.467939el; 32.80 BMI Method:Stated General Appearance: Other (sedated on ventilator) HEENT: PERRL/EOMI Neck: Supple Respiratory: Rales, Rhonci Cardiovascular: Regular Rate, Rhythm Peripheral Pulses: 2+ Dorsalis Pedis (R), 2+ Left Dors-Pedis (L), 2+ Radial Pulses (R) Gastrointestinal: normal bowel sounds, soft Extremity: No Pedal Edema Neurologic/Psychiatric: Other (sedated) Skin: Warm/Dry Results Lab Laboratory Tests 03/23/21 02:30 03/24/21 02:30 Assessment/Plan Assessment/Plan (Tele-ICU Physician , Progress Note ) Available chart/ vitals / labs / Images reviewed Video assessment done using teleICU camera, rest of exam as per RN Discussed with RN. Exam as per RN -course on right , more clear on left, edema 1 Events overnight: increased peep to 14 with desats FEBRILE , i/o - neg 500 VENT SETTINGS. PC rr 22- 100 % peep 14 PAP 35 ABG reviewed Sedation: RASS -3 Pressors: Drips: NS 75 precedex . propofol 50, precedex , fentanyl prn Consultants: Hospital course: (03/19) 55 Y admitted for Covid pneumonia/Respiratory fialure and hypoxia. Pt transferred from floor for worsening hypoxia on Bipap 100% RR 41 sats 89. (03/20) Intubated 03/23 - increased peep to 14 , 100% SBT vital /Cardiovascular Stability/Sedation Score/FI02/PEEP/ABG/CXR reviewed - not candidate today A/P -Acute reps failur - , hypoxic , Covid PNA -cont full vent support -. PC rr 22- 100 % peep 14 PAP 35 -prone @10a - if decrease fi02 to 50 will stop troning tomorrew and assess for extubatrion - stop IVF, , lasix x1 today again with albumin - worsening FIO2 - elev ddimer - PARRIS PENDING -> increased empiric lovenox on 03/23 Covid PNA - d dimer 1.25 03/17 ( No CT done ) - will check ddimer - ? consider PARRIS CONDE empiric increase of lovenox - steroids - leukocytosis - -ceftriaxon 03/17, Z-max 03/18-> to merrem 03/23 - anidulafungin added 03/23 Hyponatremia - new 124 on 03/24 - stat repeat , possible needs CTH A fib - short run 03/21 - converted spontaneously - monitor , no additional w/up Hermilo residuals - starting reglan Lines : femoral 03/20 (Central Line Necessity Reviewed) - removed 03/23 - PICC right plced -> to cefald - NEEDS REPLACEMENT Ghosh: 03/19 N/27 Analgesia: fentanyl prn Sedation: see above HOB Elevation: confirmed Nutrition: start TF 03/21 - high residuals - started reglan on 03/23 VTE Prophylaxis: Lovenox 40 qd - lovenox 100 q 12 on 03/23 Stress Ulcer Prophylaxis: PPI Glycemic Control: + Plans in collaboration with bedside consultants and IM MDs. Discussed with RN to reach out if any questions or concerns A total of 37 minutes of critical care time was devoted to this patient today, required to treat and/or prevent further deterioration of critical care condition ( as above ) . ALVARO WHITESIDE MD Mar 24, 2021 08:23
[2021-03-24] MEDS ORDERED: MIDAZOLAM 10 MG/2 ML (VERSED) VIAL IVP NR (08:39)
[2021-03-24] MEDS ORDERED: METOCLOPRAMIDE INJ 10 MG/2 ML (REGLAN) IVP PRN (08:45)
[2021-03-24] MEDS: fentaNYL INJ 100 MCG/2 ML AMP IVP PRN ×2 (08:50→10:34)
[2021-03-24] MEDS: PANTOPRAZOLE 40 MG (PROTONIX) VIAL IV SCH (08:51)
[2021-03-24] MEDS: LACRI-LUBE OPTHALMIC OINT 3.5 GM TUBE OU SCH (08:52)
--- NOTE | 2021-03-24 08:54 | Diagnostic Imaging Report ---
Clinical indication: Patient with Covid on vent. Patient has superficial venous thrombosis of the left arm. Comparison: None Procedure: Real-time bilateral lower extremity venous Doppler duplex evaluation is performed from the inguinal region through the popliteal fossa. The calf venous structures are also evaluated. Findings: There is short segment area of partial thrombus involving the proximal right greater saphenous vein near the saphenofemoral junction, which is incompletely compressible. This area of partial thrombosis is seen less than 3 cm from the right saphenofemoral junction. The deep venous system is well visualized and is easily compressible. There is no other evidence of deep venous thrombosis, valvular incompetence, or significant collateral circulation. There is no fluid collection in the popliteal fossa. Impression: 1: There is a short segment area of partial thrombus involving the proximal right greater saphenous vein which is seen less than 3 cm from the saphenofemoral junction. 2: There is no other ultrasound Doppler evidence of deep venous thrombosis in the bilateral lower extremity. I agree with the preliminary report given to Dr. Bowling by the generation technologist. Dictated by: Dictated on workstation # [id number]
[2021-03-24] MEDS ORDERED: ANIDULAFUNGIN INJECTION 100 MG in NS (IVPB) 100 ML IV SCH (09:00)
--- NOTE | 2021-03-24 09:20 | Diagnostic Imaging Report ---
INDICATION: PICC line placement. COMPARISON: 03/24/2021 at 2:38 a.m. FINDINGS: Single view of the chest demonstrates a PICC line entering from the right which appears to be in the SVC right atrial junction. Additional support lines are stable. Infiltrates are unchanged. There is no pneumothorax. IMPRESSION: 1. Well-positioned support lines. 2. Unchanged aeration lungs. Dictated by: Dictated on workstation # [id number]
[2021-03-24 09:25] LABS: CHLORIDE 106 MMOL/L (98-107); POTASSIUM 4.1 MMOL/L (3.6-5.0); SODIUM 145 MMOL/L (135-145)
[2021-03-24 09:26] LABS: CALCIUM 7.7 MG/DL (8.5-10.1)
[2021-03-24 09:27] LABS: GLUCOSE 125 MG/DL (70-105); TRIGLYCERIDES 372 MG/DL (<150)
[2021-03-24 09:28] LABS: CARBON DIOXIDE 29 MMOL/L (21-32)
[2021-03-24 09:31] LABS: BUN/CREATININE RATIO 30; CREATININE SERUM 0.73 MG/DL (0.60-1.30); GFR ESTIMATED > 60
[2021-03-24] MEDS ORDERED: fentaNYL INJ 100 MCG/2 ML AMP IVP PRN (11:00)
[2021-03-24] MEDS ORDERED: LORazepam INJ 2 MG/ML (ATIVAN) VIAL IVP ONE (11:00)
--- NOTE | 2021-03-24 12:31 | Discharge Summary ---
Discharge Summary Hospital Course Was the Problem List Reviewed?: Yes Problems/Dx: (1) Acute respiratory failure with hypoxia Status: Acute (2) COVID-19 Status: Acute Hospital Course Date of Admission: Mar 17, 2021 at 09:55 Admission Diagnosis : Family Physician/Provider: Carolyn Bowling DO Date of Discharge: 03/24/21 Discharge Diagnosis: 1. Acute Respiratory Failure 2. COVID Pneumonia 3. Left Cephalic Vein Occlusion 4. Right Saphenous Vein Occlusion 5. Hyponatremia Hospital Course: This is a 55 year old male who tested positive for COVID-19 on 03/11/21. He was seen yesterday in the emergency room with worsening shortness of air. He was sent home on oxygen When the oxygen company came to check on him today, his oxygen saturation was down in the 80s on 5L NC so it was decided to directly a dmit him to the hospital for further evaluation and treatment. He was initially admitted to the medical floor and was on oxygen at 4-6L via NC. He received IV decadron, IS, albuterol MDI, lovenox for DVT prophylaxis, Protonix for both dyspepsia and GI prophylaxis and covaslescent plasma was ordered. He was put on Rocephin and Zithromax due to worsening CXR appearance. He was advanced to Vapotherm on 03/18/21 and then placed on BIPAP on 03/19/21 with transfer to the ICU and eICU consult. He had to be intubated on 03/20/21 due to worsening respiratory status. He has remained sedated and intubated with proning for up to 16hrs a day since 03/20/21. Yesterday, his PEEP and FiO2 had to be increased and there was concern about possible PE due to the change in his respiratory status. He had a noted cephalic vein occlusion of his left upper arm despite lovenox for DVT prophylaxis. Venous dopplers were ordered of both lower extremities but due to being prone these were not done until the morning of transfer. His lovenox was increased empirically to 1mg/kg every 12hours to cover for DVT/PE possibilities. He was not sent down for CT of his chest due to needing to remain prone as well and being to unstable yesterday to go down for CT. His WBC count had elevated and his rocephin and zithromax had ran their course so Maxipime and eraxis were added. He did spike a temperature yesterday as well. He did get IV lasix on both 03/22/21 and 03/23/21. He has been started on feedings via his OG tube but has not been tolerating them well with high residuals. Reglan was added to help this. Due to his worsening condition, was contacted for possible transfer. The patient was accepted today by Dr. Baldwin at and will be transferred via air to . His and family are in agreement with this transfer. Labs and Pending Lab Test: Laboratory Tests 03/23/21 18:13: Glucometer 173H 03/23/21 22:18: Glucometer 142H 03/24/21 02:30: White Blood Count 14.4H, Red Blood Count 3.26L, Hemoglobin 12.2L, Hematocrit 32L , Mean Corpuscular Volume 97, Mean Corpuscular Hemoglobin 37H, Mean Corpuscular Hemoglobin Concent 39H, Red Cell Distribution Width 12.9, Platelet Count 196, Mean Platelet Volume 12.0, Immature Granulocyte % (Auto) 7, Neutrophils (%) (Auto) 88H, Lymphocytes (%) (Auto) 3L, Monocytes (%) (Auto) 2, Eosinophils (%) (Auto) 0, Basophils (%) (Auto) 0, Neutrophils # (Auto) 12.6H, Lymphocytes # (Auto) 0.4L, Monocytes # (Auto) 0.3, Eosinophils # (Auto) 0.0, Basophils # (Auto) 0.0, Immature Granulocyte # (Auto) 1.1H, Neutrophils % (Manual) 91, Lymphocytes % (Manual) 3, Monocytes % (Manual) 4, Band Neutrophils 2, Mike Cells MARKED, Blood Morphology Comment NA, Sodium Level 124#*L, Potassium Level 5.3H, Chloride Level 94L, Carbon Dioxide Level 21, Anion Gap 9, Blood Urea Nitrogen 18, Creatinine 0.58L, Estimat Glomerular Filtration Rate > 60, BUN/Creatinine Ratio 31, Glucose Level 104, Calcium Level 6.1L, Phosphorus Level 1.4L, Magnesium Level 1.9 03/24/21 03:34: Blood Gas Puncture Site L RADIAL, Blood Gas Patient Temperature 37.8, Arterial Blood pH 7.42, Arterial Blood Partial Pressure CO2 48H, Arterial Blood Partial Pressure O2 73L, Arterial Blood HCO3 31H, Arterial Blood Total CO2 32.0H, Arterial Blood Oxygen Saturation 94, Arterial Blood Base Excess 6.4H, Nikita Test YES-POS, Blood Gas Ventilator Setting YES, Blood Gas Inspired Oxygen NA 03/24/21 04:40: Glucometer 135H 03/24/21 09:03: Sodium Level 145, Potassium Level 4.1, Chloride Level 106, Carbon Dioxide Level 29, Anion Gap 10, Blood Urea Nitrogen 22H, Creatinine 0.73, Estimat Glomerular Filtration Rate > 60, BUN/Creatinine Ratio 30, Glucose Level 125H, Calcium Level 7.7L, Triglycerides Level 372H Microbiology 03/20/21 Gram Stain - Final, Complete 03/20/21 Sputum Culture - Final, Complete No growth Home Meds Active Reported Aspirin EC (Aspirin) 81 Mg Tablet.dr 81 Mg PO DAILY Flonase Allergy Relief (Fluticasone Propionate) 9.9 Ml [place].susp 1 [place] NSEACH BID PRN Vitamin C (Ascorbic Acid) 500 Mg Tablet 500 Mg PO DAILY Zinc (Zinc Sulfate) 50 Mg Tablet 50 Mg PO DAILY Vitamin D3 (Cholecalciferol (Vitamin D3)) 25 Mcg Tablet 25 Mcg PO DAILY Hydrochlorothiazide 12.5 Mg Tablet 12.5 Mg PO DAILY Proventil Hfa (Albuterol Sulfate) 6.7 Gm Hfa.aer.ad 2 Puff INH Q4H PRN Benzonatate 100 Mg Capsule 100-200 Mg PO TID PRN Promethazine-Dm Syrup (Promethazine/Dextromethorphan) 473 Ml Syrup 5 Ml PO Q4H PRN MDD 30ML Multivitamins (Multivitamin) 1 Each Tablet 1 Each PO DAILY Dapsone 25 Mg Tablet 50 Mg PO DAILY TAKES 2 (25MG) TABS Assessment/Pt Instructions 1. Acute Respiratory Failure 2. COVID Pneumonia 3. Left Cephalic Vein Occlusion 4. Right Saphenous Vein Occlusion 5. Hyponatremia Transfer via air to [facility] for higher level of care Discharge Planning: >30 minutes discharge planning Discharge Instructions Discharge Diet: Tube Feeding Orders & Referrals Transfer to ICU for Critical/Pulmonology--Dr. Baldwin accepts Consultations TeleICU/Pulmonology Discharge Physical Examination Vital Signs Vital Signs Date Time Temp Pulse Resp B/P (MAP) Pulse Ox O2 Delivery O2 Flow Rate FiO2 03/24/21 10:58 80 03/24/21 10:15 38.4 03/24/21 10:00 30 137/88 (104) 91 Mechanical Ventilator 80.00 03/24/21 06:42 75 General Appearance: Other (sedated on vent) HEENT: Other (ET tube and OG tube in place) Respiratory: Rales Cardiovascular: Regular Rate, Rhythm Gastrointestinal: Normal Bowel Sounds, Soft Extremity: Non Tender, No Calf Tenderness, No Pedal Edema Skin: Warm/Dry Neurologic/Psychiatric: Other (sedated on ventilator) Allergies: Coded Allergies: No Known Drug Allergies (Unverified , 08/12/09) Discharge Summary Date of Admission Mar 17, 2021 at 09:55 Date of Discharge Comfort Measures/ Advance Care discuss with: patient Plan: initiate discussion Time spent on discussion (min): 15 Discharge Diagnosis (1) Acute respiratory failure with hypoxia Status: Acute Assessment & Plan: See freetext note (2) COVID-19 Status: Acute CAROLYN BOWLING DO Mar 24, 2021 12:05
== END 2021-03-24 11:00 | disposition short-term general hospital (02) | DRG 208 ==
LOC: 4TH 09:55 → ICU 03-19 12:39
PROVIDERS: ADMIT Family Medicine; ATTEND Family Medicine
PROC: 02HV33Z Insertion of Infusion Device into Superior Vena Cava, Percutaneous Approach (ICD-10-PCS; 2021-03-17)
PROC: 5A09457 Assistance with Respiratory Ventilation, 24-96 Consecutive Hours, Continuous Positive Airway Pressure (ICD-10-PCS; 2021-03-17)
PROC: XW13325 Transfusion of Convalescent Plasma (Nonautologous) into Peripheral Vein, Percutaneous Approach, New Technology Group 5 (ICD-10-PCS; 2021-03-17)
PROC: 5A1945Z Respiratory Ventilation, 24-96 Consecutive Hours (ICD-10-PCS; principal; 2021-03-20)
PROC: 0BH17EZ Insertion of Endotracheal Airway into Trachea, Via Natural or Artificial Opening (ICD-10-PCS; 2021-03-20)
DX: U07.1 COVID-19 (principal); J12.82 Pneumonia due to coronavirus disease 2019; J96.01 Acute respiratory failure with hypoxia; E87.1 Hypo-osmolality and hyponatremia; I82.612 Acute embolism and thrombosis of superficial veins of left upper extremity; I82.811 Embolism and thrombosis of superficial veins of right lower extremity; Z79.82 Long term (current) use of aspirin; Z79.899 Other long term (current) drug therapy; I10 Essential (primary) hypertension; R11.0 Nausea; D72.829 Elevated white blood cell count, unspecified; I48.91 Unspecified atrial fibrillation; R31.9 Hematuria, unspecified
CPT/HCPCS: 36415; 36569; 36600; 71045; 76937; 80048; 80053; 81000; 82805; 82947; 83735; 84100; 84145; 84478; 84484; 85007; 85025; 85027; 85379; 86141; 86900; 86901; 87070; 87205; 93005; 93970; 94002; 94003; 94640; 94660; 94799

== ENCOUNTER 2021-08-10 14:38 | Outpatient (RCR) | payer BC ==
[~2021-08-10 14:38] MED LIST changes: +ASCO500T17 PO; +ASPI-1238 PO; +BENZ-36 PO; +CHOL-34 PO; +D-ME473S11 PO; +FLUT9.9S NSEACH; +HYDR12.56 PO; +RT-ALBUINH INH; +ZINC220T3 PO
== END 2021-08-10 15:50 | disposition home or self-care (01) ==
DX: U07.1 COVID-19 (principal); J12.82 Pneumonia due to coronavirus disease 2019; I10 Essential (primary) hypertension; Z74.09 Other reduced mobility; Z78.9 Other specified health status

== ENCOUNTER → 2021-08-24 | Outpatient (CLI) | payer BC ==
[~2021-08-24] MED LIST changes: +RT-ALBUTEROL SULF 2.5 MG/3 ML PRE-MIX VIAL INH ONE
--- NOTE | 2021-08-24 17:00 | Diagnostic Imaging Report ---
PROCEDURE: CT chest without contrast. TECHNIQUE: Multiple contiguous axial images were obtained through the chest without the use of intravenous contrast. Auto Exposure Controls were utilized during the CT exam to meet ALARA standards for radiation dose reduction. INDICATION: COVID. COMPARISON: Exam is correlated with overlapped views obtained at the lung bases during abdominal CT 02/26/2018. FINDINGS: No blebs, bullous disease, or air cysts. Some mild linear subpleural scarring versus partial atelectasis in the posterior segment of the left lower lobe in the medial right middle lobe. No evidence for acute pneumonia. No findings of edema. No effusion or pneumothorax. No lung mass. No thoracic adenopathy. The aorta is nonaneurysmal. No pleural or pericardial effusion. No acute chest wall abnormality. The visualized upper abdomen demonstrates stable mild splenomegaly with no ascites. IMPRESSION: Mild linear zones of scarring or subsegmental atelectasis at the left base and right middle lobe; no evidence for acute pneumonia, blebs, bullous disease, air cysts, or pleural pathology. No evidence for neoplasm. Stable splenomegaly, chronic. Dictated by: Dictated on workstation # [id number]
== END ==
LOC: CARD 13:00
PROVIDERS: ATTEND Internal Medicine Critical Care Medicine
DX: U09.9 Post COVID-19 condition, unspecified (principal); R16.1 Splenomegaly, not elsewhere classified
CPT/HCPCS: 71250; 93306; 94060; 94726; 94729

== ENCOUNTER 2022-04-26 16:10 | Emergency (ER) | payer BC ==
[~2022-04-26] VITALS: Ht 170 cm; Wt 88.0 kg
[~2022-04-26 16:10] MED LIST changes: -RT-ALBUTEROL SULF 2.5 MG/3 ML PRE-MIX VIAL INH ONE
[2022-04-26] MEDS ORDERED: NS IV 1000 ML 1,000 ML IV STA (16:25)
--- NOTE | 2022-04-26 16:28 | ED Back Pain ---
General Chief Complaint: Back Problems Stated Complaint: BACK PAIN, POSSIBLE KIDNEY STONE Source of Information: Patient Exam Limitations: No Limitations History of Present Illness Date Seen by Provider: Apr 26, 2022 Time Seen by Provider: 16:26 Initial Comments Patient is a 57-year-old male who presents ED with right flank pain. Pain started this morning. Dull achy pain constant throughout the day. No radiating pain. Denies nausea, vomiting, diarrhea. History of kidney stones with history of lithotripsy in the past and concern for possible kidney stone. Denies any urinary symptoms such as dark urine, increased urine frequency. Patient contacted Dr. Navarro office who states to come to the ED for further evaluation. Denies fever, chills, bodyaches, chest pain, shortness of breath. Patient took Tylenol at home Allergies and Home Medications Allergies Coded Allergies: No Known Drug Allergies (Unverified , 08/12/09) Patient Home Medication List Home Medication List Reviewed: Yes Albuterol Sulfate (Proventil Hfa) 6.7 Gm Hfa.aer.ad, 2 PUFF INH Q4H PRN for SHORTNESS OF BREATH, (Reported) Entered as Reported by: HANK GUAJARDO on 03/17/21 1333 Ascorbic Acid (Vitamin C) 500 Mg Tablet, 500 MG PO DAILY, (Reported) Entered as Reported by: HANK GUAJARDO on 03/17/21 1333 Aspirin (Aspirin EC) 81 Mg Tablet.dr, 81 MG PO DAILY, (Reported) Entered as Reported by: HANK GUAJARDO on 03/17/21 1333 Benzonatate (Benzonatate) 100 Mg Capsule, 100-200 MG PO TID PRN for COUGH, (Reported) Entered as Reported by: HANK GUAJARDO on 03/17/21 1333 Cholecalciferol (Vitamin D3) (Vitamin D3) 25 Mcg Tablet, 25 MCG PO DAILY, (Reported) Entered as Reported by: HANK GUAJARDO on 03/17/21 1333 Dapsone (Dapsone) 25 Mg Tablet, 50 MG PO DAILY, (Reported) Entered as Reported by: PARTH BERTRAND on 03/25/18 1558 Fluticasone Propionate (Flonase Allergy Relief) 9.9 Ml [place].susp, 1 SPRAY NSEACH BID PRN for CONGESTION, (Reported) Entered as Reported by: HANK GUAJARDO on 03/17/21 1333 Hydrochlorothiazide (Hydrochlorothiazide) 12.5 Mg Tablet, 12.5 MG PO DAILY, (Reported) Entered as Reported by: HANK GUAJARDO on 03/17/21 1333 Hydrocodone/Acetaminophen (Hydrocodone-Acetamin 5-325 mg) 5 Mg-325 Mg Tablet, 1 TAB PO Q4H PRN for PAIN-MODERATE (5-7) Prescribed by: SUNIL JAMES on 04/26/22 1733 Multivitamin (Multivitamins) 1 Each Tablet, 1 EACH PO DAILY, (Reported) Entered as Reported by: PARTH BERTRAND on 03/25/18 1558 Ondansetron (Ondansetron Odt) 4 Mg Tab.rapdis, 4 MG PO Q4H Prescribed by: SUNIL JAMES on 04/26/22 1733 Promethazine/Dextromethorphan (Promethazine-Dm Syrup) 473 Ml Syrup, 5 ML PO Q4H PRN for COUGH, (Reported) Entered as Reported by: HANK GUAJARDO on 03/17/21 133 Tamsulosin HCl (Flomax) 0.4 Mg Cap, 0.4 MG PO DAILY Prescribed by: SUNIL JAMES on 04/26/22 1733 Zinc Sulfate (Zinc) 50 Mg Tablet, 50 MG PO DAILY, (Reported) Entered as Reported by: HANK GUAJARDO on 03/17/21 1333 Review of Systems Constitutional: No chills, No malaise, No weakness EENTM: No ear pain, No blurred vision, No double vision Respiratory: No cough, No orthopnea, No short of breath Cardiovascular: No chest pain, No edema Gastrointestinal: No abdominal pain, No diarrhea, No nausea, No vomiting Genitourinary: No decreased output, No discharge Musculoskeletal: back pain; No joint pain Skin: No change in color, No change in hair/nails All Other Systems Reviewed Negative Unless Noted: Yes Past Tmlmnqu-Jwfxod-Yxrpzp Hx Immunizations Up To Date Tetanus Booster (TDap): Unknown PED Vaccines UTD: Yes Seasonal Allergies Seasonal Allergies: Yes Past Medical History Surgeries: Yes (eye, kidney stone) Respiratory: No Cardiac: Yes Hypertension Neurological: No Reproductive Disorders: No Sexually Transmitted Disease: No HIV/AIDS: No Genitourinary: Yes Kidney Stones Gastrointestinal: No Musculoskeletal: No Endocrine: No HEENT: No Loss of Vision: Denies Hearing Impairment: Denies Cancer: No Psychosocial: No Integumentary: No Blood Disorders: No Adverse Reaction/Blood Tranf: No (N/A) Family Medical History Cancer Physical Exam Vital Signs Vital Signs - First Documented 04/26/22 16:18 Temp 36.7 Pulse 89 Resp 16 B/P (MAP) 167/104 (125) O2 Delivery Room Air Capillary Refill : Height, Weight, BMI Height: 5'7.00" Weight: 195lbs. 0.0oz. [id number]; 32.80 BMI Method:Stated General Appearance: No Apparent Distress, WD/WN HEENT: PERRL/EOMI, TMs Normal, Normal ENT Inspection, Pharynx Normal Neck: Full Range of Motion, Normal Inspection, Non Tender, Supple Cardiovascular: Regular Rate, Rhythm, No Edema, No Gallop, No JVD Respiratory: Chest Non Tender, Lungs Clear, Normal Breath Sounds, No Accessory Muscle Use, No Respiratory Distress Gastrointestinal: Normal Bowel Sounds, No Organomegaly, No Pulsatile Mass, Non Tender Back: CVA Tenderness (R) Extremity: Normal Capillary Refill, Normal Inspection, Normal Range of Motion, Non Tender Neurologic/Psychiatric: Alert, Oriented x3, No Motor/Sensory Deficits, Normal Mood/Affect Skin: Normal Color, Warm/Dry Procedures/Interventions Date of ETT Placement: Mar 20, 2021 Time of ETT Placement: 1519 Progress/Results/Core Measures Results/Orders Lab Results Laboratory Tests Test 04/26/22 16:20 04/26/22 16:28 Range/Units Urine Color DARK YELLOW Urine Clarity CLEAR Urine pH 5.0 5-9 Urine Specific [place] >=1.030 1.016-1.022 Urine Protein TRACE H NEGATIVE Urine Glucose (UA) NEGATIVE NEGATIVE Urine Ketones NEGATIVE NEGATIVE Urine Nitrite NEGATIVE NEGATIVE Urine Bilirubin NEGATIVE NEGATIVE Urine Urobilinogen 1.0 < = 1.0 MG/DL Urine Leukocyte Esterase NEGATIVE NEGATIVE Urine RBC (Auto) 2+ H NEGATIVE Urine RBC 25-50 H /HPF Urine WBC RARE /HPF Urine Squamous Epithelial Cells NONE /HPF Urine Crystals NONE /LPF Urine Bacteria NEGATIVE /HPF Urine Casts NONE /LPF Urine Mucus SMALL H /LPF Urine Culture Indicated NO White Blood Count 16.9 H 4.3-11.0 10^3/uL Red Blood Count 5.25 4.30-5.52 10^6/uL Hemoglobin 16.5 13.3-17.7 g/dL Hematocrit 47 40-54 % Mean Corpuscular Volume 90 80-99 fL Mean Corpuscular Hemoglobin 31 25-34 pg Mean Corpuscular Hemoglobin Concent 35 32-36 g/dL Red Cell Distribution Width 12.8 10.0-14.5 % Platelet Count 234 130-400 10^3/uL Mean Platelet Volume 10.3 9.0-12.2 fL Immature Granulocyte % (Auto) 1 % Neutrophils (%) (Auto) 88 H 42-75 % Lymphocytes (%) (Auto) 5 L 12-44 % Monocytes (%) (Auto) 5 0-12 % Eosinophils (%) (Auto) 0 0-10 % Basophils (%) (Auto) 0 0-10 % Neutrophils # (Auto) 14.8 H 1.8-7.8 10^3/uL Lymphocytes # (Auto) 0.9 L 1.0-4.0 10^3/uL Monocytes # (Auto) 0.9 0.0-1.0 10^3/uL Eosinophils # (Auto) 0.1 0.0-0.3 10^3/uL Basophils # (Auto) 0.1 0.0-0.1 10^3/uL Immature Granulocyte # (Auto) 0.2 H 0.0-0.1 10^3/uL Neutrophils % (Manual) 93 % Lymphocytes % (Manual) 6 % Monocytes % (Manual) 1 % Eosinophils % (Manual) 0 % Basophils % (Manual) 0 % Band Neutrophils 0 % Blood Morphology Comment NORMAL Sodium Level 138 135-145 MMOL/L Potassium Level 3.9 3.6-5.0 MMOL/L Chloride Level 103 98-107 MMOL/L Carbon Dioxide Level 26 21-32 MMOL/L Anion Gap 9 5-14 MMOL/L Blood Urea Nitrogen 17 7-18 MG/DL Creatinine 1.62 H 0.60-1.30 MG/DL Estimat Glomerular Filtration Rate 50 BUN/Creatinine Ratio 10 Glucose Level 160 H 70-105 MG/DL Calcium Level 9.5 8.5-10.1 MG/DL Corrected Calcium 9.3 8.5-10.1 MG/DL Total Bilirubin 1.3 H 0.1-1.0 MG/DL Aspartate Amino Transf (AST/SGOT) 14 5-34 U/L Alanine Aminotransferase (ALT/SGPT) 24 0-55 U/L Alkaline Phosphatase 100 40-136 U/L Total Protein 7.2 6.4-8.2 GM/DL Albumin 4.2 3.2-4.5 GM/DL Lipase 18 8-78 U/L My Orders Orders - SPENCER ACOSTA Urinalysis (04/26/22 16:12) Cbc With Automated Diff (04/26/22 16:25) Comprehensive Metabolic Panel (04/26/22 16:25) Lipase (04/26/22 16:25) Ct Abd/Pelvis Wo(Kidney Stone) (04/26/22 16:25) Ns Iv 1000 Ml (Sodium Chloride 0.9%) (04/26/22 16:25) Ketorolac Injection (Toradol Injection) (04/26/22 16:30) Manual Differential (04/26/22 16:28) Abdomen/Kub 1view (04/26/22 17:31) Medications Given in ED Current Medications Medications Dose Ordered Sig/Steven Route Start Time Stop Time Status Last Admin Dose Admin Ketorolac Tromethamine 30 mg ONCE ONCE IVP 04/26/22 16:30 04/26/22 16:31 DC 04/26/22 16:45 30 MG Vital Signs/I&O 04/26/22 16:18 Temp 36.7 Pulse 89 Resp 16 B/P (MAP) 167/104 (125) O2 Delivery Room Air Departure Communication (PCP) Patient urinalysis with hematuria without evidence of infection. White blood count of 16.9. Creatinine of 1.67 GFR 50. Was given a liter fluid Toradol with complete resolution of pain. History of kidney stones that required lithotripsy in the past. CT abdomen and pelvis shows 2 mm right UVJ stone results in [id number] upstream right hydroureteronephrosis. Discussed these results with patient. He states he is feeling much better at this time. Slight concern for the slight change in kidney function but states he is urinating without difficulties. Does not appear toxic or septic. Pain controlled. He was recommended come to the ED by urology Dr. Whyte who states that he will see patient next week. Patient feels comfortable going home. Discussed following up with his primary in the next few days to recheck his kidney function. If any worsening symptoms I strongly recommend returning back to ED for further evaluation. Discussed with patient importance of staying hydrated. Will discharge with oral pain medicine, Zofran for nausea and Flomax to help urinate. Patient agrees with plan of action Impression Primary Impression: Ureterolithiasis Disposition: HOME, SELF-CARE Condition: Stable Departure-Patient Inst. Decision time for Depature: 17:32 Referrals: ELIZABETH MTZ MD (PCP/Family) Primary Care Physician WILLY NAVARRO MD Patient Instructions: Kidney Stone, Adult ED Scripts Hydrocodone/Acetaminophen (Hydrocodone-Acetamin 5-325 mg) 5 Mg-325 Mg Tablet 1 TAB PO Q4H PRN for PAIN-MODERATE (5-7), #8 TAB Prov: SPENCER ACOSTA 04/26/22 Ondansetron (Ondansetron Odt) 4 Mg Tab.rapdis 4 MG PO Q4H, #8 TAB Prov: SPENCER ACOSTA 04/26/22 Tamsulosin HCl (Flomax) 0.4 Mg Cap 0.4 MG PO DAILY, #20 CAP Prov: SPENCER ACOSTA 04/26/22 SPENCER ACOSTA Apr 26, 2022 16:28
[2022-04-26 16:29] LABS: BILIRUBIN,URINE NEGATIVE (NEGATIVE); CLARITY,URINE CLEAR; COLOR,URINE DARK YELLOW; GLUCOSE, URINE (UA) NEGATIVE (NEGATIVE); KETONES,URINE NEGATIVE (NEGATIVE); LEUKOCYTE ESTERASE ,URINE NEGATIVE (NEGATIVE); NITRITE,URINE NEGATIVE (NEGATIVE); PROTEIN,URINE TRACE (NEGATIVE)
[2022-04-26] MEDS ORDERED: KETOROLAC 30 MG/ML VIAL IVP ONE (16:30)
[2022-04-26 16:38] LABS: BASOPHILS # (AUTO) 0.1 10^3/uL (0.0-0.1); BASOPHILS % (AUTO) 0 % (0-10); EOSINOPHILS # (AUTO) 0.1 10^3/uL (0.0-0.3); EOSINOPHILS % (AUTO) 0 % (0-10); HEMATOCRIT 47 % (40-54); HEMOGLOBIN 16.5 g/dL (13.3-17.7); LYMPHOCYTES # (AUTO) 0.9 10^3/uL (1.0-4.0); LYMPHOCYTES % (AUTO) 5 % (12-44); MEAN CORPUSCULAR HEMOGLOBIN 31 pg (25-34); MEAN CORPUSCULAR HGB CONC 35 g/dL (32-36); MEAN CORPUSCULAR VOLUME 90 fL (80-99); MEAN PLATELET VOLUME 10.3 fL (9.0-12.2); MONOCYTES # (AUTO) 0.9 10^3/uL (0.0-1.0); MONOCYTES % (AUTO) 5 % (0-12); NEUTROPHILS # (AUTO) 14.8 10^3/uL (1.8-7.8); NEUTROPHILS % (AUTO) 88 % (42-75); PLATELET COUNT 234 10^3/uL (130-400); WHITE BLOOD COUNT 16.9 10^3/uL (4.3-11.0)
[2022-04-26 16:39] LABS: BACTERIA,URINE NEGATIVE /HPF; RBC,URINE 25-50 /HPF; WBC,URINE RARE /HPF
[2022-04-26 16:48] LABS: ALBUMIN 4.2 GM/DL (3.2-4.5); POTASSIUM 3.9 MMOL/L (3.6-5.0)
[2022-04-26 16:49] LABS: CALCIUM 9.5 MG/DL (8.5-10.1)
[2022-04-26 16:50] LABS: TOTAL PROTEIN 7.2 GM/DL (6.4-8.2)
[2022-04-26 16:52] LABS: BILIRUBIN,TOTAL 1.3 MG/DL (0.1-1.0)
[2022-04-26 16:54] LABS: CREATININE SERUM 1.62 MG/DL (0.60-1.30)
[2022-04-26 17:15] LABS: BAND NEUTROPHILS 0 %; BASOPHILS % (MANUAL) 0 %; EOSINOPHILS % (MANUAL) 0 %; LYMPHOCYTES % (MANUAL) 6 %; MONOCYTES % (MANUAL) 1 %; NEUTROPHILS % (MANUAL) 93 %; RBC MORPH NORMAL
--- NOTE | 2022-04-26 17:17 | Diagnostic Imaging Report ---
PROCEDURE: CT urinary tract, rule out kidney stone. TECHNIQUE: Multiple contiguous axial images were obtained through the abdomen and pelvis without the use of intravenous contrast. Auto Exposure Controls were utilized during the CT exam to meet ALARA standards for radiation dose reduction. INDICATION: History of nephrolithiasis, now with back pain. FINDINGS: A stone at the right UVJ measuring 2.1 mm results in [id number]-[id number] upstream right-sided hydroureteronephrosis. There is some perinephric and periureteric stranding, but no urinoma or discrete fluid collection. The unobstructed left kidney is nonfocal and nonacute. Bladder is otherwise unremarkable. There is no appendicitis, diverticulitis, ileus, or bowel obstruction. The remaining abdominopelvic unopacified solid and hollow viscera are unremarkable. IMPRESSION: 2 mm right UVJ stone results in [id number] upstream right hydroureteronephrosis. Dictated by: Dictated on workstation # [id number]
[2022-04-26] MEDS ORDERED: TMSL.4C PO (17:33)
[2022-04-26] MEDS ORDERED: ONDA4TAB11 PO (17:33)
[2022-04-26] MEDS ORDERED: ACHD5005 PO (17:33)
--- NOTE | 2022-04-26 17:57 | Diagnostic Imaging Report ---
INDICATION: Right lower quadrant pain. Kidney stone. COMPARISON: Comparison is made with a CT examination performed earlier in the same day. FINDINGS: The prior CT examination demonstrated a 2 mm right-sided UVJ stone. There was associated right-sided hydronephrosis and hydroureter. This small stone was apparent on the communications project manager tomogram from the preceding CT examination and was positioned to the right of midline. This is not well delineated on this examination but there is now a tiny radiodensity projecting just above the left superior pubic ramus which could reflect a stone if this passed in the interval. No other abnormal calcifications are evident. The bowel gas pattern is nonobstructed. IMPRESSION: 1. The tiny right 2 mm UVJ stone was previously demonstrated to the right of midline on the communications project manager tomogram. This is not apparent on this examination and there is now a small radiodensity to the left midline just above the left pubic ramus which could reflect passage of the stone. Correlation as to interval resolution of prior obstructive symptomatology is appreciated. Dictated by: Dictated on workstation # [id number]
[2022-04-26 18:02] VITALS: BP 145/85
== END 2022-04-26 18:02 | disposition home or self-care (01) ==
LOC: EDUNIT# 16:10 → ER 16:12
DX: N13.2 Hydronephrosis with renal and ureteral calculous obstruction (principal); Z28.310 Unvaccinated for COVID-19
CPT/HCPCS: 36415; 74018; 74176; 80053; 81000; 83690; 85007; 85027